=== PATIENT | female | born 1955 | race Caucasian/White ===

== ENCOUNTER 2024-12-03 12:56 | Inpatient (IN) | payer MEDICARE, SELFPAY ==
[2024-12-03] VITALS (7 sets, daily range): BP systolic 128–149; BP diastolic 57–76; PULSE 72–88; RESP 16–18; TEMP 36.7–36.8; O2SAT 87–98; BMI 38.5; BMI 37.3
--- NOTE | 2024-12-03 15:15 | CT_ITS ---
PROCEDURE: BRAIN/HEAD WITHOUT CONTRAST, 12/03/2024 REASON FOR EXAM: INJURY COMPARISON: None TECHNIQUE: CT head was performed without IV contrast. Multiplanar reformats were generated. RADIATION DOSE SUMMARY: CTDlvol: 44.99 mGy DLP: 829.85 mGycm One or more dose reduction techniques were used (e.g., Automated exposure control, adjustment of the mA and/or kV according to patient size, use of iterative reconstruction technique). FINDINGS: Cerebrum: No visible acute hemorrhage, definite acute territorial infarct, or visible mass. Mild cerebral volume loss and supratentorial presumed chronic microvascular ischemic white matter changes. Suspect a remote lacunar infarct versus prominent perivascular space in the posterior limb of the RIGHT internal capsule. Mineralization of the bilateral basal ganglia. Cerebellum/brainstem: Mineralization bilaterally. No visible acute findings. Note slight limitation due to beam hardening artifact. Ventricles/extra-axial spaces: Age-appropriate appearance of the ventricular system. Focal CSF prominence and questioned 2.2 cm arachnoid versus epidermoid cyst or other cystic structure along the high LEFT parietal convexity. Minimal mass effect on the adjacent cerebral parenchyma. Paranasal sinuses/mastoid air cells: Unremarkable. Scalp/calvarium: Unremarkable. Other: Intracranial atherosclerosis. CT/Brain/Head without Contrast IMPRESSION: 1. No visible acute posttraumatic intracranial findings. 2. Question a 2.2 cm arachnoid versus epidermoid cyst or other cystic structure along the high LEFT parietal convexity. Consider outpatient MRI brain with and without contrast for confirmation. Comparison wi th any outside imaging may also be helpful. 3. Additional description as above. Reading Location: [id number]
--- NOTE | 2024-12-03 15:20 | RAD_ITS ---
PROCEDURE: HIP, UNI W/ PELVIS 2-3 VIEWS 12/03/2024 REASON FOR EXAM: INJURY TECHNIQUE: Three-view right hip to include the AP pelvis COMPARISON: None. RAD/HIP, UNI W/ Pelvis 2-3 Views IMPRESSION: Prominent degenerative changes are seen of the visualized lower lumbar spine Minimal sacroiliac joint degenerative changes are noted. The left hip joint demonstrates minimal degenerative changes. A comminuted intertrochanteric FRACTURE of the proximal right femur is seen, wi th varus angulation present. Fracture fragments also involve the lesser and greater trochanters. Reading Location: [place] [id number]
--- NOTE | 2024-12-03 16:20 | EKG12_ITS ---
Test Reason : FALL Blood Pressure : */* mmHG Vent. Rate : 72 BPM Atrial Rate : * BPM P-R Int : * ms QRS Dur : 84 ms QT Int : 400 ms P-R-T Axes : * 11 110 degrees QTcB Int : 438 ms Wandering Atrial Rhythm with PAC's, some blocked PAC's Nonspecific ST and T wave abnormality Abnormal ECG Confirmed by Reinier Brar ([id number]), online editor GABI AHMADI ([id number]) on 12/05/2024 12:46:04 PM Referred By: Confirmed By: Reinier Brar
--- NOTE | 2024-12-03 16:45 | EX.ED.GENINJ ---
HPI History of Present Illness Chief Complaint: Fall Informant: patient and family Narrative Narrative: 69-year-old female presenting to the emergency room with chief complaint of hip pain. Patient states that she was at [employer] when she stepped in a hole and fell down onto her right hip. She was assisted up by bystanders and brought to the hospital by private vehicle. She notes pain in the right hip. She states that she did not hit her head but she did hit her glasses on something. No loss of conscious. She does not take blood thinners but is on Pletal. She has no local orthopedist that she removed from the [place] area to here 1 year ago. Patient had a tramadol this morning for her back pain. She does not wish anything at this time for pain. [facility] Medical History Stomach ulcer Hypertension Irregular heart beat Diabetes Allergy/AdvReac Type Severity Reaction Status Date / Time minocycline (From Minocin) AdvReac Other Verified 12/03/24 13:01 Social History Smoking Status: Never smoker ROS ROS ED Constitutional Constitutional ED: Denies chills or weight loss Eyes Eyes: Denies change in vision or diplopia ENT ENT ED: Denies ear pain, rhinorrhea or sore throat Cardiovascular Cardiovascular: Denies chest pain, orthopnea, palpitations or racing heartbeat Respiratory/Chest Respiratory/Chest: Denies cough, dyspnea or orthopnea Gastrointestinal Gastrointestinal: Denies abdominal pain, diarrhea, nausea or vomiting Genitourinary Genitourinary ED: Denies dysuria, hematuria or urinary frequency Musculoskeletal Musculoskeletal: Reports other Details: See history of present illness ; Denies arthralgias or myalgias Integumentary Denies abscess or rash Neurologic Neurologic: Denies headache(s) or weakness Psychiatric Psychiatric: Denies anxiety, depression, suicidal ideation or suicidal thoughts Endocrine Endocrinology: Denies polydipsia, polyphagia or polyuria Allergic/Immunologic Allergic/Immunologic ED: Denies mouth swelling, tongue swelling or urticaria EXAM Physical Exam Const Vital Signs: 12/03/24 12:57 12/03/24 15:54 12/03/24 16:02 Temperature 98.2 F Temperature Source Oral Pulse Rate 88 75 Respiratory Rate 16 18 Respiratory Effort Normal Non-Labored Respiratory Depth Normal Respiratory Pattern Normal Blood Pressure 134/57 H 138/67 H Blood Pressure Mean 82 90 Pulse Ox 94 95 Oxygen Delivery Method Room Air Room Air Room Air Positive well nourished, well developed and obese General Appearance ED: well developed and NAD Nutritional Appearance: obese HEENT Reports normocephalic, head/scalp atraumatic and moist mucous membranes Eyes PERRL and EOMs intact bilaterally Neck no lymphadenopathy, supple and no JVD Resp normal respiratory effort and clear to auscultation bilaterally Cardio regular rate, regular rhythm and no murmurs GI normal to inspection, nondistended, normoactive bowel sounds and non-tender Palpation: soft Back/Spine no CVA tenderness and normal ROM Extremity Extremity Narrative: Patient with pain in the right hip in the greater trochanteric area. She has pain in this area when I attempt to logroll her. The leg itself does not appear shortened compared to the left. There is no pain over the pubic rami. I do not appreciate any tenderness along the length of the femur or the knee joint. General Extremety ED: Negative for edema General Extremity: Negative for edema Neuro oriented x3 and CN's II-XII intact bilaterally Sensorium / Orientation: alert Motor Exam: strength 5/5 throughout Psych mental status grossly normal Mood & Affect: Negative for depressed or tearful Skin no rashes or lesions noted and no wounds MDM MDM MDM Narrative Medical decision making narrative: Differential diagnosis includes hip fracture skull fracture intracranial hemorrhage pubic rami fracture pelvic fracture contusion traumatic bursitis My depend interpretation of the plain films of the right hip and pelvis is an intertrochanteric hip fracture with lesser marry off. CT the brain shows no acute findings. Basic blood work will be obtained. I spoke with orthopedics Dr. Parrish who is on-call today. He is happy to evaluate the patient. I will speak with the hospitalist regarding admission. Patient and her friend were updated History & Record Review Discussion w/independent historian: Patient and Family Lab Data Attestation: I reviewed the patient's lab results. Radiography Diagnostic Testing: Clinical Impression(s) from Imaging Studies Brain CT 12/03/24 15:15 IMPRESSION: 1. No visible acute posttraumatic intracranial findings. 2. Question a 2.2 cm arachnoid versus epidermoid cyst or other cystic structure along the high LEFT parietal convexity. Consider outpatient MRI brain with and without contrast for confirmation. Comparison with any outside imaging may also be helpful. 3. Additional description as above. Reading Location: [id number] Hip/Pelvis X-Ray 12/03/24 15:20 IMPRESSION: Prominent degenerative changes are seen of the visualized lower lumbar spine Minimal sacroiliac joint degenerative changes are noted. The left hip joint demonstrates minimal degenerative changes. A comminuted intertrochanteric FRACTURE of the proximal right femur is seen, with varus angulation present. Fracture fragments also involve the lesser and greater trochanters. Reading Location: [place] [address] EKG Initial EKG: Attestation: I personally reviewed and interpreted this EKG as follows: Comments: Sinus rhythm ventricular rate of 72 bpm Management Discussion w/another healthcare provider: Hospitalist (Dr Rubi), Sammying Machine Operator (Dr Krueger) and Radiologist Discharge Plan Dx/Rx/DC Orders Clinical Impression: Fracture of right hip, Fall, Diabetes, Hypertension Disposition Disposition: Acute Care Hospital [facility]
[2024-12-03] MEDS: Ondansetron 4 MG/2 ML Vial IV (16:50)
[2024-12-03] MEDS: Morphine 4 MG/ML Syringe IV (16:50)
[2024-12-03 16:59] LABS: Absolute Lymphocyte Count 2.12 X10^3/uL (0.83-4.51); Basophil# 0.03 X10^3/uL; Basophil% 0.3 % (0-1); Eosinophil# 0.13 X10^3/uL; Eosinophils% 1.2 % (0-5); Hematocrit 38.2 % (37-47); Hemoglobin 12.9 g/dL (12.0-15.0); Lymphocyte # 2.12 X10^3/ul (0.83-4.51); Lymphocyte % 19.2 % (19-41); Mean Corp Hgb Conc 33.8 g/dL (32-36); Mean Corpuscular Hgb 37.1 pg (27.0-32.0); Mean Corpuscular Volume 109.8 fL (81-99); Mean Platelet Vol. 10.8 fl (6.2-12.0); Monocyte% 6.3 % (0-10); NRBC Flagged by Analyzer 0 % (0-5); Neutrophil % 72.4 % (47-70); Platelet Count 168 K/mm3 (150-450); RBC Distribution Width CV 13.2 % (11.6-14.6); RBC Distribution Width SD 53.5 fl (35.1-43.9); Red Blood Count 3.48 M/mm3 (4.2-5.4); White Blood Count 11.1 K/mm3 (4.4-11.0)
[2024-12-03 17:36] LABS: Anion Gap 14 (5-15); BUN 17 mg/dL (4-19); BUN/Creat Ratio 29.4 RATIO (10-20); Calcium,Total 10.1 mg/dL (7.6-11.0); Carbon Dioxide 23.4 mmol/L (21.0-32.0); Chloride 105 mmol/L (98-108); Creatinine, Serum 0.58 mg/dL (0.70-1.20); EST Glomerular Filtration Rate 97 (>60); Estimated Creatinine Clearance 72.21 ml/min (50-250); Glucose 177 mg/dL (70-99); Potassium 3.9 mmol/L (3.3-5.1); Sodium Level 142 mmol/L (133-145)
--- NOTE | 2024-12-03 17:44 | PCM.HP.STD ---
HPI - General General Date of Admission: 12/03/24 Date of Service: 12/03/24 Chief Complaint: Fall with R hip pain HPI Narrative YONIS FUENTES, is a 69-year-old female history of diabetes, hypertension, Crohn's disease, hyperlipidemia, chronic diastolic heart failure, GERD, chronic pain who presented [facility] ED 12/03/2024 after stepping in a hole with her right leg in [employer] [place] falling. In the ED patient complained of right hip pain. On arrival to the ED temperature 98.2, pulse rate 88 with blood pressure 134/57, respiratory rate 16 with pulse ox 94% on room air. CT of the brain with no acute process however x-ray of right hip demonstrated Comminuted intertrochanteric fracture proximal right femur with varus angulation and fracture fragments also involving lesser and greater trochanters. Orthopedic surgeon contacted and recommended medical admission with Ortho consultation. Hospitalist contacted for admission. Patient evaluated bedside, reports that she was in her usual health until she stepped into a divot while trying to put on her jacket walking in the [employer] parking lot and fell striking her right hip, is having hip pain at present but is doing better on the morphine. She reports that over the past couple years she does get dizzy when she standing or turning occasionally but has been more noticeable recently though reports this is not why she fell. ROS otherwise negative aside from superficial skin rash on left tian. She does note history of congestive heart failure for which she takes diuretics, does not take them on days that she has things she needs to go out and do due to urinating so much but does not feel like she has been retaining fluid [facility] Medical History (Updated 12/03/24 @ 17:[address] Elizabet Rubi MD) Chronic diastolic heart failure Crohn disease Diabetes GERD (gastroesophageal reflux disease) Hypertension Irregular heart beat Stomach ulcer Home Medications ?Medication ?Instructions ?Recorded ?Last Taken ?Type atorvastatin 80 mg tablet 80 mg PO DAILY 12/03/24 Unknown History benazepril 20 tab PO 12/03/24 Unknown History mg-hydrochlorothiazide 12.5 mg tablet carvedilol 12.5 mg tablet 12.5 mg PO BID 12/03/24 Unknown History cilostazol 100 mg tablet 100 mg PO BID 12/03/24 Unknown History colestipol 1 gram tablet 1 g PO TID 12/03/24 Unknown History empagliflozin 10 mg tablet 10 mg PO DAILY 12/03/24 Unknown History (Jardiance) gabapentin 400 mg capsule 400 mg PO TID 12/03/24 Unknown History insulin glargine 100 unit/mL 70 unit subcut QPM 12/03/24 Unknown History subcutaneous solution (Lantus U-100 Insulin) metformin 1,000 mg tablet 1,000 mg PO 12/03/24 Unknown History pantoprazole 40 mg tablet,delayed 40 mg PO DAILY 12/03/24 Unknown History release tramadol 50 mg tablet 50 mg PO BID severe pain 12/03/24 Unknown History Allergy/AdvReac Type Severity Reaction Status Date / Time minocycline (From Minocin) AdvReac Other Verified 12/03/24 13:01 Social History Smoking Status: Never smoker ROS ROS Narrative General: Denies fever/chills HENT: Denies headache, denies stuffy nose, denies sore throat EYES: Denies changes in vision Resp: Denies cough, denies shortness of breath Cardiac: Denies chest pain GI: Denies abdominal pain, denies changes in bowel, denies nausea/vomiting : Denies changes in urination Extremity: Denies swelling MSK: Denies weakness, right hip pain Neuro: Denies any numbness/tingling Heme: Denies any bleeding or bruising Skin: Rash on left tian for which she has already seen PCP Psychiatric: No complaints voiced Vital Signs Vital Signs Vital Signs: 12/03/24 12:57 12/03/24 15:54 12/03/24 16:02 Temperature 98.2 F Temperature Source Oral Pulse Rate 88 75 Respiratory Rate 16 18 Respiratory Effort Normal Non-Labored Respiratory Depth Normal Respiratory Pattern Normal Blood Pressure 134/57 H 138/67 H Blood Pressure Mean 82 90 Pulse Ox 94 95 Oxygen Delivery Method Room Air Room Air Room Air Weight Weight: 98.7 kg Body Mass Index (BMI) 38.5 Physical Exam Narrative General: Alert, oriented, no apparent distress HEENT: Atraumatic, normocephalic Eyes: Anicteric, normal conjunctiva, extraocular movements grossly intact Neck: Supple Respiratory: Clear to auscultation bilaterally, normal respiratory effort Cardiovascular: Regular rate and rhythm GI: Soft, nontender, nondistended Extremities: No significant pitting edema Musculoskeletal: Playing with right leg still, otherwise moving all extremities Neuro: No overt focal neurological deficits Skin: Some superficial rash on left tian Psych: Cooperative Results Lab / Micro Data 12/03/24 16:45 12/03/24 16:45 Labs: Laboratory Results - last 24 hr 12/03/24 16:45: WBC 11.1 H, RBC 3.48 L, Hgb 12.9, Hct 38.2, MCV 109.8 H, MCH 37.1 H, MCHC 33.8, RDW Std Deviation 53.5 H, RDW Coeff of Tuan 13.2, Plt Count 168, MPV 10.8, Immature Gran % (Auto) 0.600, Neut % (Auto) 72.4 H, Lymph % (Auto) 19.2, Gem % (Auto) 6.3, Eos % (Auto) 1.2, Baso % (Auto) 0.3, Absolute Neuts (auto) 8.0 H, Absolute Lymphs (auto) 2.12, Nucleated RBC % 0, Sodium 142, Potassium 3.9, Chloride 105, Carbon Dioxide 23.4, Anion Gap 14, BUN 17, Creatinine 0.58 L, Estim Creat Clear Calc 72.21, Est GFR (MDRD) Non-Af 97, BUN/Creatinine Ratio 29.4 H, Glucose 177 H, Calcium 10.1 Imaging Radiology Impression Brain CT 12/03/24 15:15 IMPRESSION: 1. No visible acute posttraumatic intracranial findings. 2. Question a 2.2 cm arachnoid versus epidermoid cyst or other cystic structure along the high LEFT parietal convexity. Consider outpatient MRI brain with and without contrast for confirmation. Comparison with any outside imaging may also be helpful. 3. Additional description as above. Reading Location: [facility] Hip/Pelvis X-Ray 12/03/24 15:20 IMPRESSION: Prominent degenerative changes are seen of the visualized lower lumbar spine Minimal sacroiliac joint degenerative changes are noted. The left hip joint demonstrates minimal degenerative changes. A comminuted intertrochanteric FRACTURE of the proximal right femur is seen, with varus angulation present. Fracture fragments also involve the lesser and greater trochanters. Reading Location: [place] [id number] Assessment & Plan Assessment/Plan (1) Fracture of right hip: (2) Hypertension: (3) Diabetes: (4) Fall: (5) Chronic diastolic heart failure: PLAN: Plan # Comminuted intertrochanteric fracture of the proximal right femur with varus angulation and fracture fragments also involving lesser and greater trochanters -Ortho contacted by ED physician, Ortho consult placed -Pain control -N.p.o. midnight in the event patient requires surgical intervention tomorrow -Will hold cilostazol given the above -PT/OT -Case management consult #Type 2 diabetes mellitus -Glucose checks and sliding scale insulin -Continue long-acting but will give half dose in preparation for possible n.p.o. and surgical intervention tomorrow, will likely need to rapidly escalate dose back to home dose as soon as patient is no longer n.p.o. #Hypertension - Blood pressure 138/67 on arrival, will continue patient's Coreg with holding parameters # Crohn's disease -On Humira on an outpatient basis # History of chronic heart failure with preserved ejection fraction -On external history patient carries a history of diastolic dysfunction -Daily weights, I's and O's #GERD -Continue PPI # Focal CSF prominence -CT head demonstrated focal CSF prominence in question 2.2 cm arachnoid versus epidermoid cyst or other cystic structure along high left parietal convexity it was recommended the patient have an outpatient MRI brain with and without contrast considered for comparison with any additional outside imaging if applicable #DVT ppx: SCDs Elizabet Rubi MD Charges/Coding Visit Charges Inpatient E&M: 39290 Init Hosp L2
[2024-12-03 18:04] LABS: Partial Thromboplast Time 26.9 Seconds (24.1-36.2)
[2024-12-03] MEDS: Insulin Lispro 100 UNIT/ML INSULN.PEN SC (20:59)
[2024-12-03] MEDS: Senna/Docusate Sodium 1 Tablet 2 TABLET PO (21:00)
[2024-12-03] MEDS: Acetaminophen 500 MG Tablet 1000 MG PO (21:00)
[2024-12-03] MEDS: Gabapentin 400 MG Capsule PO (21:00)
[2024-12-03] MEDS: oxyCODONE 5 MG Tablet PO (21:00)
[2024-12-03] MEDS: Atorvastatin Calcium 80 MG Tablet PO (21:00)
[2024-12-03] MEDS: Colestipol 1 GM TABLET PO (21:39)
[2024-12-03] MEDS: Insulin Glargine-YFGN 100 UNIT/ML Pen 35 UNIT SC (21:39)
[2024-12-03 21:46] LABS: Bedside Glucose 262 mg/dL (74-106)
[2024-12-04] VITALS (20 sets, daily range): BP systolic 113–166; BP diastolic 50–79; PULSE 64–85; RESP 12–20; TEMP 36.1–37.1; O2SAT 92–100; BMI 37.3
[2024-12-04] MEDS: Gabapentin 400 MG Capsule PO ×2 (05:36→22:09)
[2024-12-04] MEDS: Colestipol 1 GM TABLET PO ×2 (05:36→22:03)
[2024-12-04] MEDS: Acetaminophen 500 MG Tablet 1000 MG PO ×2 (05:36→22:04)
[2024-12-04 05:58] LABS: Absolute Neutrophil Count 4.4 X10^3/uL (2.0-7.7); Basophil# 0.03 X10^3/uL; Basophil% 0.4 % (0-1); Eosinophil# 0.26 X10^3/uL; Eosinophils% 3.1 % (0-5); Hematocrit 32.9 % (37-47); Hemoglobin 11.2 g/dL (12.0-15.0); Lymphocyte % 35.3 % (19-41); Mean Corpuscular Volume 108.6 fL (81-99); Monocyte# 0.77 X10^3/uL; Monocyte% 9.1 % (0-10); NRBC Flagged by Analyzer 0 % (0-5); Neutrophil # 4.41 X10^3/uL (2.7-7.7); Neutrophil % 51.7 % (47-70); Platelet Count 146 K/mm3 (150-450); RBC Distribution Width CV 13.4 % (11.6-14.6); RBC Distribution Width SD 53.7 fl (35.1-43.9); Red Blood Count 3.03 M/mm3 (4.2-5.4); White Blood Count 8.5 K/mm3 (4.4-11.0)
[2024-12-04 05:59] LABS: Anion Gap 8 (5-15); BUN 20 mg/dL (4-19); BUN/Creat Ratio 36.3 RATIO (10-20); Calcium,Total 9.2 mg/dL (7.6-11.0); Carbon Dioxide 26.7 mmol/L (21.0-32.0); Chloride 105 mmol/L (98-108); Creatinine, Serum 0.55 mg/dL (0.70-1.20); EST Glomerular Filtration Rate 98 (>60); Glucose 124 mg/dL (70-99); Potassium 3.3 mmol/L (3.3-5.1); Sodium Level 140 mmol/L (133-145)
[2024-12-04 06:18] LABS: Hemoglobin A1c 6.9 % (<=5.6)
[2024-12-04] MEDS: oxyCODONE 5 MG Tablet PO (06:36)
[2024-12-04 06:58] LABS: Bedside Glucose 133 mg/dL (74-106)
--- NOTE | 2024-12-04 07:19 | PN.HOSP_ITS ---
Reason for Visit Reason for Visit: Diagnoses Type 2 diabetes mellitus without complications (12/03/24) Essential (primary) hypertension (12/03/24) Chronic diastolic (congestive) heart failure (12/03/24) Fracture of unspecified part of neck of right femur, initial encounter for closed fracture (12/03/24) Unspecified fall, initial encounter (12/03/24) Subjective Subjective Pain in right leg. Objective Data Objective Data Vital Signs: Vital Signs Temp Pulse Resp BP Pulse Ox O2 Del Method O2 Flow Rate 36.6 C 76 16 113/62 98 CPAP 2 12/04/24 03:59 12/04/24 03:59 12/04/24 03:59 12/04/24 03:59 12/04/24 03:59 12/04/24 03:59 12/03/24 20:45 FiO2 30 12/04/24 02:40 Oxygen Flow Rate (L/min) 2 Oxygen Delivery Method CPAP Weight: 95.481 kg Body Mass Index (BMI) 37.3 Intake & Output: Intake and Output for Last 24 Hours 12/02/24 12/03/24 12/04/24 23:59 23:59 23:59 Intake Total 200 / 200 Balance 200 / 200 Lab / Micro Data 12/04/24 05:22 12/04/24 05:22 Labs: Laboratory Results - last 24 hr 12/03/24 16:45: WBC 11.1 H, RBC 3.48 L, Hgb 12.9, Hct 38.2, MCV 109.8 H, MCH 37.1 H, MCHC 33.8, RDW Std Deviation 53.5 H, RDW Coeff of Tuan 13.2, Plt Count 168, MPV 10.8, Immature Gran % (Auto) 0.600, Neut % (Auto) 72.4 H, Lymph % (Auto) 19.2, [place] % (Auto) 6.3, Eos % (Auto) 1.2, Baso % (Auto) 0.3, Absolute Neuts (auto) 8.0 H, Absolute Lymphs (auto) 2.12, Nucleated RBC % 0, PT 13.0, INR 1.0, APTT 26.9, Sodium 142, Potassium 3.9, Chloride 105, Carbon Dioxide 23.4, Anion Gap 14, BUN 17, Creatinine 0.58 L, Estim Creat Clear Calc 72.21, Est GFR (MDRD) Non-Af 97, BUN/Creatinine Ratio 29.4 H, Glucose 177 H, Calcium 10.1, Blood Type A POSITIVE, Antibody Screen NEGATIVE 12/03/24 20:52: POC Glucose 262 H 12/04/24 05:22: WBC 8.5, RBC 3.03 L, Hgb 11.2 L, Hct 32.9 L, MCV 108.6 H, MCH 37.0 H, MCHC 34.0, RDW Std Deviation 53.7 H, RDW Coeff of Tuan 13.4, Plt Count 146 L, MPV 11.0, Immature Gran % (Auto) 0.400, Neut % (Auto) 51.7, Lymph % (Auto) 35.3, [place] % (Auto) 9.1, Eos % (Auto) 3.1, Baso % (Auto) 0.4, Absolute Neuts (auto) 4.4, Absolute Lymphs (auto) 3.00, Nucleated RBC % 0, Sodium 140, Potassium 3.3, Chloride 105, Carbon Dioxide 26.7, Anion Gap 8, BUN 20 H, C reatinine 0.55 L, Estim Creat Clear Calc 70.90, Est GFR (MDRD) Non-Af 98, B UN/Creatinine Ratio 36.3 H, Glucose 124 H, Hemoglobin A1c 6.9 H, Calcium 9.2 12/04/24 06:24: POC Glucose 133 H Radiography Diagnostic Testing: Radiology Impression Brain CT 12/03/24 15:15 IMPRESSION: 1. No visible acute posttraumatic intracranial findings. 2. Question a 2.2 cm arachnoid versus epidermoid cyst or other cystic structure along the high LEFT parietal convexity. Consider outpatient MRI brain with and without contrast for confirmation. Comparison with any outside imaging may also be helpful. 3. Additional description as above. Reading Location: [id number] Hip/Pelvis X-Ray 12/03/24 15:20 IMPRESSION: Prominent degenerative changes are seen of the visualized lower lumbar spine Minimal sacroiliac joint degenerative changes are noted. The left hip joint demonstrates minimal degenerative changes. A comminuted intertrochanteric FRACTURE of the proximal right femur is seen, with varus angulation present. Fracture fragments also involve the lesser and greater trochanters. Reading Location: [place] [address] Physical Exam Const alert and no apparent distress Resp normal respiratory effort, no retractions, no use of accessory muscles and clear to auscultation bilaterally Cardio regular rate, regular rhythm, S1 normal heart sound and S2 normal heart sound GI normal to inspection, nondistended, normoactive bowel sounds, soft to palpation, non-tender and non-distended Extremity normal to inspection Neuro Sensorium / Orientation: awake and alert Assessment & Plan Assessment/Plan (1) Fracture of right hip: PLAN: s/p mechanical fall. 25-OH d level 42.6. Start ergocalciferol Ortho consult. PLAN: Plan Chronic conditions: * DM2: SSI. * HTN: stable. carvedilol * Crohn's dz: continue adalimumab as outpt * GERD: PPI. VTE prophylaxis: SCDs for now. Charges/Coding Visit Charges Inpatient E&M: 24474 Subs Hosp L2
[2024-12-04 08:24] LABS: Vitamin D,25 Hydroxy 42.6 ng/mL (30-100)
[2024-12-04] MEDS: Carvedilol 12.5 MG Tablet PO ×2 (09:51→18:05)
--- NOTE | 2024-12-04 11:58 | CASEMGMT ---
Discharge Planning A list of SNF providers including quality and resource use data and consistent with the patient's preferred geographic region, medical needs, and insurance network was created in [facility] Guide.? This list was provided to the SW. Marychuy Bravo Discharge Planning Asst.
--- NOTE | 2024-12-04 12:25 | CASEMGMT ---
SAUD KENNEY Assessment: Face to Face with pt for initial transition planning/care coordination assessment. RN ANNE MARIE introduced self and role at [facility], pt voices understanding and consents to assessment. Pt is A&O x4 and answers all questions appropriately at this time. Pt lying in bed in no distress, aunt and uncle in the room. Pt agreeable to discussing DC plan with family in the room. Care providers, pharmacy, and demographics verified/updated. Strata: 2 Admitting Dx: R Proximal Femur Fracture PCP: Esperanza Cary Specialists: Julita Aquacultural Worker Supervisor; Eliezer, Cardiology Preferred Pharmacy: [facility] Insurance: [employer] Prescription Benefit: yes LNOK: AuntNikolas Living Arrangements: Pt lives alone in an appt with no steps to enter. ADLs: Pt reports I at baseline. Transportation: Pt family provides transportation. DME: CPAP, Shower Seat, Walker. Pt states she has O2 at home but hasn't been using it, pt is unsure of provider, aunt states she will look at name on concentrator and let RN ANNE MARIE know the agency. HHC/SNF: Denies Hx of. Pt states she would like to go to [facility] at time of dc. RN CM notified SW and RN CM on floor. SW/CM to follow. Advised pt to ask CM if any further question/concerns/needs arise, voices understanding. Pt Goal: [facility] Plan: Will follow plan of care and therapy for recommendations. Plan for safe DC. Pam VILLAVICENCIO CM
[2024-12-04 12:45] LABS: Bedside Glucose 120 mg/dL (74-106)
--- NOTE | 2024-12-04 12:55 | CASEMGMT ---
Social Work SW met with pt and two family members. Family inquiring about discharge process. SW explained that after surgery and therapy SW/CM would meet with pt to discuss discharge needs. Pt stating she will need to go to SNF at time of DC for short term rehab. Pt states she would likely want to go to [facility], but would like to review a list. A list of SNF providers including quality and resource use data and consistent with the patient?s preferred geographic region, medical needs, and insurance network were provided from the [facility]. SW will follow up after pt has surgery and therapy evals for dc planning. JERONIMO Carreno
--- NOTE | 2024-12-04 13:00 | RAD_ITS ---
PROCEDURE: INTRAOPERATIVE RIGHT HIP WITH MOBILE C-ARM 12/04/2024 REASON FOR EXAM: ORIF RT HIP GAMMA NAIL TECHNIQUE: 20 IMAGES OF THE RIGHT HIP DURING INTERNAL FRACTURE FIXATION. COMPARISON: RIGHT HIP PLAIN FILMS DATED 12/03/2024. FINDINGS: Bones: A comminuted intertrochanteric fracture of the right hip is redemonstrated. Joints: Hip joint is maintained. Soft tissues: Unremarkable. Other: Images show eventual placement of orthopedic screw and compression plate device fixing the intertrochanteric fragments. RAD/Hip Min 2 Views (Portable) IMPRESSION: Successful intraoperative fixation of comminuted fracture of the right hip. Fo r further detail of the procedure please see operative report. Reading Location: [facility]
--- NOTE | 2024-12-04 13:23 | PCM.PRE.AN2 ---
ASA Classification* ASA Classification ASA Classification: 3 Assessment & Plan Anesthesia* Anesthesia Assessment Anesthesia Assessment: Discussed sedation and/or anesthesia options, risks, benefits, and alternatives with patient/parents/legal guardian/POA. Questions invited. The patient/parents/legal guardian/POA seems to understand and agrees to proceed with anesthesia plan. Reviewed the physical assessment, medical history, allergy history and patient home medications list prior to surgery/procedure/anesthetic and documented any changes. Performed airway and anesthesia risk assessments. Anesthesia Type Anesthesia Type: General History Source History Obtained from:: Patient and Chart Anesthesia Focused Assessment* Temperature: 98.5 F Pulse Rate: 73 Blood Pressure: 127/67 Respiratory Rate: 16 Pulse Ox: 94 Oxygen Delivery Method: Room Air Oxygen Flow Rate (L/min): 2 Fraction of Inspired Oxygen (FIO2): 30 Airway Assessment Mouth opens: >3 cm Mallampati Score: IV Teeth Condition: Caps/Crowns (Patient has a couple of crowns left lower molars. They are tight.) Neck Range of motion (ROM): Full ROM Focused Labs Anesthesia Preop lab: CBC WBC 8.5 K/mm3 (4.4-11.0) 12/04/24 05:12/04/24 RBC 3.03 M/mm3 (4.2-5.4) L 12/04/24 05:12/04/24 Hgb 11.2 g/dL (12.0-15.0) L 12/04/24 05:12/04/24 Hct 32.9 % (37-47) L 12/04/24 05:12/04/24 Plt Count 146 K/mm3 (150-450) L 12/04/24 05:22 12/04/24 CHEMISTRY Potassium 3.3 mmol/L (3.3-5.1) 12/04/24 05:12/04/24 Sodium 140 mmol/L (133-145) 12/04/24 05:12/04/24 BUN 20 mg/dL (4-19) H 12/04/24 05:22 12/04/24 Creatinine 0.55 mg/dL (0.70-1.20) L 12/04/24 05:22 12/04/24 Glucose 124 mg/dL (70-99) H 12/04/24 05:22 12/04/24 POC Glucose 120 mg/dL (74-106) H 12/04/24 12:21 12/04/24 COAG PT 13.0 SECONDS (11.7-14.9) 12/03/24 16:45 12/03/24 Pre-Assessment Diagnosis/Proposed Procedure Planned Operative Procedure(s): Open reduction internal fixation, gamma nail, right hip. 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 When Was Last Pacemaker Check QUESTION #4 FULL TEXT: You/Your Family Experience fever (hyperthermia) with Anesthesia Last Oral Intake Last Oral intake: Last Oral Intake NPO since 00:00 12/04/24 12:12 Meds taken in AM with sips of Yes 12/04/24 12:12 water? 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 Has anyone observed you stop breathing during sleep? STOP Results Positive 12/03/24 18:22 QUESTION #5 FULL TEXT : Do you snore loudly (louder than talking or can be heard through closed doors)? 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 Specify any problems Hx of Preganancy in last 3 No 12/03/24 18:22 Months Nurse Filling Out Transfusion [id number] 12/03/24 18:22 & Questions: Date: 12/03/24 12/03/24 18:22 Time: 18:36 12/03/24 18:22 Patient unable to answer at this time (ie. 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 INHALATION Q2H PRN PRN SOB &/OR WHEEZING Atorvastatin Calcium 80 mg 12/03/24 22:00 12/03/24 21:00 Atorvastatin Calcium 80 Mg Tablet PO 80 mg QHS CHRIS Administration Carvedilol 12.5 mg 12/04/24 08:00 12/04/24 09:51 Carvedilol 12.5 Mg Tablet PO 12.5 mg BIDCM CHRIS Administration Protocol Colestipol HCl 1 gm 12/03/24 22:00 12/04/24 05:36 Colestipol 1 Gm Tablet PO 1 gm TID CHRIS Administration Gabapentin 400 mg 12/03/24 22:00 12/04/24 05:36 Gabapentin 400 Mg Capsule PO 400 mg TID CHRIS Administration Glucagon 1 mg 12/03/24 18:22 Glucagon 1 Mg/Ml Syringe IM X1 PRN HYPOGLYCEMIA Protocol Dextrose 250 mls @ 0 mls/hr 12/03/24 18:22 Dextrose 10%-Water IV .Q0M PRN HYPOGLYCEMIA Protocol As Directed Sodium Chloride 250 mls @ 15 mls/hr 12/03/24 18:39 IV .[id number] PRN Saline Flush Sodium Chloride 250 mls @ 15 mls/hr 12/03/24 18:39 IV .[id number] PRN Additional IVPB Infusion Insulin Glargine 35 unit 12/03/24 21:00 12/03/24 21:39 Insulin Glargine-Yfgn 100 Unit/Ml Pen SC 35 unit QPM CHRIS Administration Insulin Human Lispro 0 unit 12/03/24 22:00 12/04/24 06:37 Insulin Lispro 100 Unit/Ml Insuln.Pen SC Not Given ACHS [facility] Protocol Melatonin 10 mg 12/03/24 18:22 Melatonin 10 Mg Tablet PO QHS PRN PRN INSOMNIA Morphine Sulfate 2 - 4 mg 12/03/24 18:55 Morphine 2 Mg/Ml Syringe IV Q3H PRN PRN Pain Score 6-10 Ondansetron HCl 4 mg 12/03/24 18:22 Ondansetron 4 Mg/2 Ml Vial IV Q8H PRN PRN NAUSEA/VOMITING Oxycodone HCl 5 mg 12/03/24 18:55 12/04/24 06:36 Oxycodone 5 Mg Tablet PO 5 mg Q4H PRN PRN Administration Pain Score 4-10 Pantoprazole Sodium 40 mg 12/04/24 10:00 Pantoprazole Sodium 40 Mg Tablet PO DAILY [facility] Senna/Docusate Sodium 2 tablet 12/03/24 22:00 12/03/24 21:00 Senna/Docusate Sodium 1 Tablet PO 2 tablet BID CHRIS Administration Sodium Chloride 10 - 40 ml 12/03/24 18:39 0.9% Saline Lock 10 Ml Syringe IV UD PRN SALINE FLUSH PFSH Medical History Chronic diastolic heart failure GERD (gastroesophageal reflux disease) Crohn disease Stomach ulcer Hypertension Irregular heart beat Diabetes Home Medications ?Medication ?Instructions ?Recorded ?Last Taken ?Type atorvastatin 80 mg tablet 80 mg PO DAILY 12/03/24 Unknown History benazepril 20 2 tab PO DAILY htn 12/03/24 Unknown History mg-hydrochlorothiazide 12.5 mg tablet carvedilol 12.5 mg tablet 12.5 mg PO BID Hypertension 12/03/24 12/04/24 History cilostazol 100 mg tablet 100 mg PO BID 12/03/24 Unknown History colestipol 1 gram tablet 1 g PO TID 12/03/24 Unknown History empagliflozin 10 mg tablet 10 mg PO DAILY 12/03/24 Unknown History (Jardiance) gabapentin 400 mg capsule 400 mg PO TID 12/03/24 Unknown History insulin glargine 100 unit/mL 70 unit subcut QPM 12/03/24 Unknown History subcutaneous solution (Lantus U-100 Insulin) metformin 1,000 mg tablet 1,000 mg PO BID dm 12/03/24 Unknown History pantoprazole 40 mg tablet,delayed 40 mg PO DAILY 12/03/24 Unknown History release tramadol 50 mg tablet 50 mg PO BID severe pain 12/03/24 Unknown History Allergy/AdvReac Type Severity Reaction Status Date / Time minocycline (From Minocin) AdvReac Other Verified 12/04/24 13:12 Surgical History (Updated 12/04/24 @ 13:[address] Jamie Nascimento MD) S/P cholecystectomy Social History Smoking Status: Never smoker Review of Systems (Anesthesia) ROS Narrative System reviewed and no additional complaints, except as documented.
--- NOTE | 2024-12-04 13:55 | CONS.ORTHO ---
HPI Consult Data Date of Consult: 12/04/24 HPI Narrative HPI Narrative: YONIS FUENTES, is a 69-year-old female history of diabetes, hypertension, Crohn's disease, hyperlipidemia, chronic diastolic heart failure, GERD, chronic pain who presented [facility] ED 12/03/2024 after stepping in a hole with her right leg in [facility] parking lot falling. Patient was found to have right hip intertrochanteric femur fracture. Was consulted by the ER. I saw the patient today. She explains that she had been using 2 wheeled walker for the last 3 to 4 years because of back pain prior to the injury yesterday. She reports that her right hip hurts but denies any other areas of pain. She denies any other injuries. She denies any head injury. She is able to move her toes. She is a known diabetic and also sees cardiology. She has been cleared for surgery. [facility] Medical History (Updated 12/04/24 @ 13:[address] Isaac Krueger MD) Chronic diastolic heart failure GERD (gastroesophageal reflux disease) Crohn disease Stomach ulcer Hypertension Irregular heart beat Diabetes Home Medications ?Medication ?Instructions ?Recorded ?Last Taken ?Type atorvastatin 80 mg tablet 80 mg PO DAILY 12/03/24 Unknown History benazepril 20 2 tab PO DAILY htn 12/03/24 Unknown History mg-hydrochlorothiazide 12.5 mg tablet carvedilol 12.5 mg tablet 12.5 mg PO BID Hypertension 12/03/24 12/04/24 History cilostazol 100 mg tablet 100 mg PO BID 12/03/24 Unknown History colestipol 1 gram tablet 1 g PO TID 12/03/24 Unknown History empagliflozin 10 mg tablet 10 mg PO DAILY 12/03/24 Unknown History (Jardiance) gabapentin 400 mg capsule 400 mg PO TID 12/03/24 Unknown History insulin glargine 100 unit/mL 70 unit subcut QPM 12/03/24 Unknown History subcutaneous solution (Lantus U-100 Insulin) metformin 1,000 mg tablet 1,000 mg PO BID dm 12/03/24 Unknown History pantoprazole 40 mg tablet,delayed 40 mg PO DAILY 12/03/24 Unknown History release tramadol 50 mg tablet 50 mg PO BID severe pain 12/03/24 Unknown History Allergy/AdvReac Type Severity Reaction Status Date / Time minocycline (From Minocin) AdvReac Other Verified 12/04/24 13:12 Surgical History (Updated 12/04/24 @ 13:[address] Jamie Nascimento MD) S/P cholecystectomy Social History Smoking Status: Never smoker Vital Signs Vital Signs Vital Signs: 12/03/24 15:54 12/03/24 16:02 12/03/24 18:17 Temperature 98.0 F Temperature Source Pulse Rate 75 72 Pulse Strength Respiratory Rate 18 18 Respiratory Effort Normal Non-Labored Respiratory Depth Normal Respiratory Pattern Normal Blood Pressure 138/67 H 138/76 H Blood Pressure Mean 90 96 Blood Pressure Source Blood Pressure Position Blood Pressure Location Pulse Ox 95 97 Oxygen Delivery Method Room Air Room Air Oxygen Flow Rate (L/min) Fraction of Inspired Oxygen (FIO2) 12/03/24 18:22 12/03/24 18:40 12/03/24 20:38 Temperature 98.1 F Temperature Source Oral Pulse Rate 75 Pulse Strength Respiratory Rate 18 Respiratory Effort Normal Non-Labored Respiratory Depth Normal Respiratory Pattern Normal Blood Pressure 149/67 H Blood Pressure Mean 94 Blood Pressure Source Monitor Blood Pressure Position Supine Blood Pressure Location Right Arm Pulse Ox 92 87 Oxygen Delivery Method Room Air Room Air Room Air Oxygen Flow Rate (L/min) Fraction of Inspired Oxygen (FIO2) 12/03/24 20:40 12/03/24 20:45 12/03/24 22:00 Temperature 98.3 F Temperature Source Oral Pulse Rate 81 Pulse Strength Normal (2+) Respiratory Rate 16 Respiratory Effort Normal Non-Labored Respiratory Depth Normal Respiratory Pattern Normal Blood Pressure 128/57 H Blood Pressure Mean 80 Blood Pressure Source Monitor Blood Pressure Position Semi-Fowlers Blood Pressure Location Right Arm Pulse Ox 92 98 Oxygen Delivery Method Nasal Cannula Nasal Cannula Oxygen Flow Rate (L/min) 2 2 Fraction of Inspired Oxygen (FIO2) 12/04/24 00:00 12/04/24 02:40 12/04/24 03:59 Temperature 98 F Temperature Source Axillary Pulse Rate 76 76 76 Pulse Strength Respiratory Rate 16 12 16 Respiratory Effort Respiratory Depth Respiratory Pattern Normal Blood Pressure 113/62 Blood Pressure Mean 79 Blood Pressure Source Monitor Blood Pressure Position Semi-Fowlers Blood Pressure Location Right Arm Pulse Ox 98 97 98 Oxygen Delivery Method CPAP Oxygen Flow Rate (L/min) Fraction of Inspired Oxygen (FIO2) 30 30 12/04/24 06:55 12/04/24 11:58 12/04/24 12:12 Temperature 98.5 F 98.5 F Temperature Source Oral Oral Pulse Rate 73 73 Pulse Strength Respiratory Rate 16 16 Respiratory Effort Respiratory Depth Respiratory Pattern Blood Pressure 127/67 H 127/67 H Blood Pressure Mean 87 87 Blood Pressure Source Monitor Monitor Blood Pressure Position Semi-Fowlers Semi-Fowlers Blood Pressure Location Left Arm Right Arm Pulse Ox 97 94 Oxygen Delivery Method Room Air Nasal Cannula Room Air Oxygen Flow Rate (L/min) 2 Fraction of Inspired Oxygen (FIO2) 12/04/24 13:38 Temperature 98.5 F Temperature Source Pulse Rate 73 Pulse Strength Respiratory Rate 16 Respiratory Effort Respiratory Depth Respiratory Pattern Blood Pressure 127/67 H Blood Pressure Mean Blood Pressure Source Blood Pressure Position Blood Pressure Location Pulse Ox 94 Oxygen Delivery Method Room Air Oxygen Flow Rate (L/min) 2 Fraction of Inspired Oxygen (FIO2) 30 Weight Weight: 210 lb 7.958 oz Body Mass Index (BMI) 37.3 Physical Exam Narrative Exam to the right hip shows tenderness into the groin and lateral hip region. Distal neurovascular exam is intact. Examination of the distal femur, knee and rest of the right lower extremity do not show any obvious bony tenderness. Patient is able to move all joints in bilateral upper and left lower extremities. Lab / Micro Data 12/04/24 05:22 12/04/24 05:22 Labs: Laboratory Results - last 24 hr 12/03/24 16:45: WBC 11.1 H, RBC 3.48 L, Hgb 12.9, Hct 38.2, MCV 109.8 H, MCH 37.1 H, MCHC 33.8, RDW Std Deviation 53.5 H, RDW Coeff of Tuan 13.2, Plt Count 168, MPV 10.8, Immature Gran % (Auto) 0.600, Neut % (Auto) 72.4 H, Lymph % (Auto) 19.2, [place] % (Auto) 6.3, Eos % (Auto) 1.2, Baso % (Auto) 0.3, Absolute Neuts (auto) 8.0 H, Absolute Lymphs (auto) 2.12, Nucleated RBC % 0, PT 13.0, INR 1.0, APTT 26.9, Sodium 142, Potassium 3.9, Chloride 105, Carbon Dioxide 23.4, Anion Gap 14, BUN 17, Creatinine 0.58 L, Estim Creat Clear Calc 72.21, Est GFR (MDRD) Non-Af 97, BUN/Creatinine Ratio 29.4 H, Glucose 177 H, Calcium 10.1, Blood Type A POSITIVE, Antibody Screen NEGATIVE 12/03/24 20:52: POC Glucose 262 H 12/04/24 05:22: WBC 8.5, RBC 3.03 L, Hgb 11.2 L, Hct 32.9 L, MCV 108.6 H, MCH 37.0 H, MCHC 34.0, RDW Std Deviation 53.7 H, RDW Coeff of Tuan 13.4, Plt Count 146 L, MPV 11.0, Immature Gran % (Auto) 0.400, Neut % (Auto) 51.7, Lymph % (Auto) 35.3, [place] % (Auto) 9.1, Eos % (Auto) 3.1, Baso % (Auto) 0.4, Absolute Neuts (auto) 4.4, Absolute Lymphs (auto) 3.00, Nucleated RBC % 0, Sodium 140, Potassium 3.3, Chloride 105, Carbon Dioxide 26.7, Anion Gap 8, BUN 20 H, Creatinine 0.55 L, Estim Creat Clear Calc 70.90, Est GFR (MDRD) Non-Af 98, BUN/Creatinine Ratio 36.3 H, Glucose 124 H, Hemoglobin A1c 6.9 H, Calcium 9.2, Vitamin D 25-Hydroxy 42.6 12/04/24 06:24: POC Glucose 133 H 12/04/24 12:21: POC Glucose 120 H Imaging Radiology Impression Brain CT 12/03/24 15:15 IMPRESSION: 1. No visible acute posttraumatic intracranial findings. 2. Question a 2.2 cm arachnoid versus epidermoid cyst or other cystic structure along the high LEFT parietal convexity. Consider outpatient MRI brain with and without contrast for confirmation. Comparison with any outside imaging may also be helpful. 3. Additional description as above. Reading Location: [facility] Hip/Pelvis X-Ray 12/03/24 15:20 IMPRESSION: Prominent degenerative changes are seen of the visualized lower lumbar spine Minimal sacroiliac joint degenerative changes are noted. The left hip joint demonstrates minimal degenerative changes. A comminuted intertrochanteric FRACTURE of the proximal right femur is seen, with varus angulation present. Fracture fragments also involve the lesser and greater trochanters. Reading Location: [place] [id number] Assessment & Plan Assessment/Plan (1) Fracture, intertrochanteric, right femur: QUALIFIERS: Encounter type: initial encounter Fracture type: closed Fracture alignment: displaced Qualified Code(s): S72.141A - Displaced intertrochanteric fracture of right femur, initial encounter for closed fracture PLAN: Plan I reviewed the x-rays done in the ER last night. These show a right hip displaced intertrochanteric femoral fracture. Discussed imaging findings in detail. Explained to her that this is surgical injury and surgical treatment is recommended to allow early mobility and to reduce recumbency complications. Surgical options were discussed. I recommend right femur cephalomedullary nailing for fracture fixation. Discussed all risk benefits and alternatives. The risks include but are not limited to infection, bleeding, hematoma formation, need for further surgery, hardware failure, nonunion, malunion, limb length discrepancy, DVT, pulm embolism, pneumonia, atelectasis, cardiopulmonary event, persistent pain, hip arthritis, need for hip replacement, sophie-implant fracture. Patient understands and agrees to proceed with surgery. Consent was signed. All questions were answered. Charges/Coding Visit Charges Inpatient E&M: 07970 Init Hosp L3
--- NOTE | 2024-12-04 15:46 | PCM.OPRPT ---
Procedures Musculoskeletal [id number]: Other Procedure See Report Operative Report (Standard) Operative Information Date of Procedure: 12/04/24 Pre-Operative Diagnosis: Right intertrochanteric femur fracture displaced Post-Operative Diagnosis: Same Surgery/Procedure Performed: Right femur cephalomedullary nailing?Short gamma nail sap technical developer: Yes Production Statistical Clerk: Sol Nelson Tasks completed by administration assistant: Closing, Hemostasis: Electrocautery and Retracting Type of Anesthesia: General RN Documented Start/Stop Times: Operation Date: 12/04/24 14:00 Case Time Into Pre-Op 12/04/24 13:04 Anesthesia Start 12/04/24 14:07 Into Room 12/04/24 14:07 Procedure Start 12/04/24 14:43 Procedure Start Time: 14:43 Procedure Stop Time: 15:55 Select all DRAINS/GRAFTS/IMPLANTS that apply: Implanted device Implanted device details: [place] gamma 4 short nail Estimated Blood Loss: 50 cc Specimen collected: No Description of surgery: Operative Report Pre-operative Diagnosis: Right intertrochanteric Femur Fracture, displaced Post-operative Diagnosis: Same Procedure(s) Performed: Right femur Cephalmedullary Nailing CPT 60719 Surgeon: Dr. Isaac Krueger MD Supervisor Sample: None Estimated Blood Loss: 50 ml Anesthesia: General Drains: None Specimens: None Implants: [place] Gamma4 Trochanteric Nail 170 x 11 mm, 125 degree short gamma nail Complications: None Condition: stable Indications: 69-year-old lady who had a ground-level fall and sustained a right intertrochanteric femur Fracture. We discussed the benefits and risks of the procedure including but not limited toinfection, bleeding, injury to nerves and vessels, limb length discrepancy, nonunion, malunion, hardware failure, sophie-implant fracture, hip and knee stiffness, persistent pain, difficulty to ambulate, DVT, pulmonary embolism, cardiopulmonary event, need for further surgeries. The patient concurred with the proposed plan, giving informed consent. Procedure Details: The patient was seen in the pre-operative preparation area. The site of surgery was verbally confirmed and marked by the surgical team. The patient was properly identified by the unique identifiers and was then at that time transported to the operative theater by [facility]. A Time Out was held and the above information confirmed. Both lower extremities were placed on the fracture table with the contralateral extremity extended down to allow C-arm to come in. Close reduction maneuver was applied and AP and lateral x-rays were taken. Reduction was acceptable. Operative area was prepped and draped in a sterile fashion. Final timeout was performed. With the help of C-arm incision was marked. A 4 cm Incision was made proximal to the greater trochanter. An appropriate greater trochanter starting point was found using the starting wire under fluoroscopy. The wire was then drilled to the metadiaphyseal region of the femur. The opening reamer was then drilled into the metadiaphysis under fluoro. 170 x 11 mm short Gamma Nail with 125 degree angle was then placed into the intramedullary canal of the femur and placement was verified with fluoroscopy and advanced to an appropriate level to allow placement of the lag screw. We then drilled the wire for the lag screw up the neck of the femur under fluoroscopic guidance. AP and lateral x-rays showed good positioning of the wire through the neck into the head with good tip apex distance. The wire was then measured. Cannulated drill was used to drill a channel for the lag screw and a 105 mm lag screw was placed up the neck of the femur. A distal static interlocking screw 32.5 mm was placed with the help of the jig. This was placed in the proximal end of the oblong hole. Final fluorscopic images were then taken and the placement of the intramedullary device and fracture was deemed appropriate. The wounds were irrigated copiously with sterile solution. Irrisept was also kept in the wound for 1 minute. This was rinsed off. Deep bleeder was noticed likely venous. This was controlled with electrocautery. The deep fascia was closed with 0 vicryl suture. The deep dermal layer was closed with 2-0 vicryl suture. [place] were used to close the skin. Aquacel dressing was used, the incisions. The patient was then awaken, extubated and taken to the PACU. I was present and scrubbed for the entire procedure. Postoperative plan: Patient will be WBAT. Recommend PT/OT evaluation Pain Control F/u Outpatient in 2 weeks Surgical Findings: See operative note Complications Complications: No
[2024-12-04] MEDS: TXA 1000mg in NS100 100ml (IVPB at Incision) 660 MG IV (16:07)
--- NOTE | 2024-12-04 16:23 | PCM.POST.ANE ---
Anesthesia: Postop Eval I Current Vital Signs Temperature: 97 F Pulse Rate: 72 Blood Pressure: 140/73 Respiratory Rate: 14 Pulse Ox: 98 Oxygen Delivery Method: Simple Mask Assessment Airway patent: Yes Spontaneous unlabored respirations: Yes Mental status: Calm nausea: No Vomiting: No Anesthesia Complication: No Fluid Hydration Crystalloid volume administer (ml): 800 Total IV fluid infused: 800 Progress Note Anesthesia document: Postop Eval 1 completed: Yes
[2024-12-04] MEDS: Calcium Carbonate 500 MG Tablet PO (18:05)
[2024-12-04] MEDS: Pantoprazole Sodium 40 MG Tablet PO (18:05)
--- NOTE | 2024-12-04 18:33 | POSTOPAN2_ITS ---
Anesthesia Postop Eval I Sum Postop Eval Completion status Anesthesia document: Postop Eval 1 completed: Yes Anesthesia Postop Eval I Summary Anesthesia Postop Eval I Summary: Anesthesia Postop Eval I: Assessment Summary Airway patent Yes 12/04/24 16:23 [email or web address] Spontaneous unlabored Yes 12/04/24 16:23 [email or web address] respirations Mental status Calm 12/04/24 16:23 [email or web address] nausea No 12/04/24 16:23 [email or web address] Vomiting No 12/04/24 16:23 [email or web address] Anesthesia Postop Eval I: Fluid Summary Crystalloid volume administer 800 12/04/24 16:23 [email or web address] (ml) Colloids volume administered ( ml) Blood Product volume administered (ml) Total IV fluid infused 800 12/04/24 16:23 [email or web address] Anesthesia Postop Eval I: Summary Notes Anesthesia Complication No 12/04/24 16:23 [email or web address] Anesthesia Complication Comment: Post-operative progress note Anesthesia: Postop Eval II Evaluation Mental status: Awake and Calm Pain Level: 2 nausea: No Vomiting: No Complications Anesthesia Complication: No
--- NOTE | 2024-12-04 18:33 | PCM.POSTANE2 ---
Anesthesia Postop Eval I Sum Postop Eval Completion status Anesthesia document: Postop Eval 1 completed: Yes Anesthesia Postop Eval I Summary Anesthesia Postop Eval I Summary: Anesthesia Postop Eval I: Assessment Summary Airway patent Yes 12/04/24 16:23 [email or web address] Spontaneous unlabored Yes 12/04/24 16:23 [email or web address] respirations Mental status Calm 12/04/24 16:23 [email or web address] nausea No 12/04/24 16:23 [email or web address] Vomiting No 12/04/24 16:23 [email or web address] Anesthesia Postop Eval I: Fluid Summary Crystalloid volume administer 800 12/04/24 16:23 [email or web address] (ml) Colloids volume administered ( ml) Blood Product volume administered (ml) Total IV fluid infused 800 12/04/24 16:23 [email or web address] Anesthesia Postop Eval I: Summary Notes Anesthesia Complication No 12/04/24 16:23 [email or web address] Anesthesia Complication Comment: Post-operative progress note Anesthesia: Postop Eval II Evaluation Mental status: Awake and Calm Pain Level: 2 nausea: No Vomiting: No Complications Anesthesia Complication: No
[2024-12-04] MEDS: APIXABAN 2.5 MG TABLET (WCH) PO (22:03)
[2024-12-04] MEDS: Senna/Docusate Sodium 1 Tablet 2 TABLET PO (22:04)
[2024-12-04] MEDS: Atorvastatin Calcium 80 MG Tablet PO (22:04)
[2024-12-04] MEDS: Insulin Glargine-YFGN 100 UNIT/ML Pen 35 UNIT SC (22:04)
[2024-12-04] MEDS: Insulin Lispro 100 UNIT/ML INSULN.PEN SC (22:06)
[2024-12-04 22:33] LABS: Bedside Glucose 172 mg/dL (74-106)
[2024-12-05] VITALS (8 sets, daily range): BP systolic 117–151; BP diastolic 61–76; PULSE 64–82; RESP 16–17; TEMP 36.4–36.7; O2SAT 97–100; BMI 37.3; BMI 37.5
[2024-12-05] MEDS: Colestipol 1 GM TABLET PO ×2 (06:26→13:56)
[2024-12-05] MEDS: Acetaminophen 500 MG Tablet 1000 MG PO ×2 (06:26→13:56)
[2024-12-05] MEDS: Insulin Lispro 100 UNIT/ML INSULN.PEN SC ×2 (06:29→12:15)
[2024-12-05] MEDS: oxyCODONE 5 MG Tablet PO (06:32)
[2024-12-05] MEDS: Gabapentin 400 MG Capsule PO ×2 (06:32→13:58)
[2024-12-05 07:06] LABS: Bedside Glucose 153 mg/dL (74-106)
--- NOTE | 2024-12-05 07:14 | PN.HOSP_ITS ---
Reason for Visit Reason for Visit: Diagnoses Type 2 diabetes mellitus without complications (12/03/24) Essential (primary) hypertension (12/03/24) Chronic diastolic (congestive) heart failure (12/03/24) Fracture of unspecified part of neck of right femur, initial encounter for closed fracture (12/03/24) Displaced intertrochanteric fracture of right femur, initial encounter for closed fracture (12/03/24) Unspecified fall, initial encounter (12/03/24) Subjective Subjective Feeling better. Objective Data Objective Data Vital Signs: Vital Signs Temp Pulse Resp BP Pulse Ox O2 Del Method O2 Flow Rate 36.4 C L 66 16 151/76 H 100 CPAP 2 12/05/24 06:05 12/05/24 06:05 12/05/24 06:05 12/05/24 06:05 12/05/24 06:05 12/05/24 06:05 12/04/24 22:11 FiO2 30 12/05/24 04:00 Oxygen Flow Rate (L/min) 2 Oxygen Delivery Method CPAP Weight: 95.98 kg Body Mass Index (BMI) 37.5 Intake & Output: Intake and Output for Last 24 Hours 12/03/24 12/04/24 12/05/24 23:59 23:59 23:59 Intake Total 950 / 1100 300 / 300 Balance 950 / 1100 300 / 300 Lab / Micro Data 12/05/24 06:03 12/05/24 06:03 Labs: Laboratory Results - last 24 hr 12/04/24 05:22: Vitamin D 25-Hydroxy 42.6 12/04/24 12:21: POC Glucose 120 H 12/04/24 22:06: POC Glucose 172 H 12/05/24 06:29: POC Glucose 153 H Radiography Diagnostic Testing: Radiology Impression Hip X-Ray 12/04/24 13:00 IMPRESSION: Successful intraoperative fixation of comminuted fracture of the right hip. For further detail of the procedure please see operative report. Reading Location: [facility] Physical Exam Const alert and no apparent distress HEENT head/scalp atraumatic and moist oral mucous membranes Resp normal respiratory effort, no retractions, no use of accessory muscles and clear to auscultation bilaterally Cardio regular rate, regular rhythm, S1 normal heart sound and S2 normal heart sound GI normal to inspection, nondistended, normoactive bowel sounds, soft to palpation, non-tender and non-distended Neuro Sensorium / Orientation: awake and alert Assessment & Plan Assessment/Plan (1) Fracture of right hip: PLAN: s/p mechanical fall. 25-OH d level 42.6. Start ergocalciferol status post gamma nail on 12/04. ortho recs: WBAT, outpt follow up in 2 weeks. VTE prophylaxis. PLAN: Plan Chronic conditions: * DM2: SSI. Insulin glargine. * HTN: stable. carvedilol * Crohn's dz: continue adalimumab as outpt * GERD: PPI. VTE prophylaxis: apixaban Disposition: to SNF pending insurance authorization. Charges/Coding Visit Charges Inpatient E&M: 42245 Subs Hosp L2
[2024-12-05 07:27] LABS: Absolute Lymphocyte Count 1.71 X10^3/uL (0.83-4.51); Absolute Neutrophil Count 5.9 X10^3/uL (2.0-7.7); Basophil# 0.02 X10^3/uL; Basophil% 0.2 % (0-1); Eosinophil# 0.02 X10^3/uL; Eosinophils% 0.2 % (0-5); Hematocrit 35.1 % (37-47); Hemoglobin 11.1 g/dL (12.0-15.0); Lymphocyte # 1.71 X10^3/ul (0.83-4.51); Lymphocyte % 20.3 % (19-41); Mean Corp Hgb Conc 31.6 g/dL (32-36); Mean Corpuscular Hgb 37.4 pg (27.0-32.0); Mean Corpuscular Volume 118.2 fL (81-99); Mean Platelet Vol. 11.8 fl (6.2-12.0); Monocyte# 0.75 X10^3/uL; Monocyte% 8.9 % (0-10); NRBC Flagged by Analyzer 0 % (0-5); Platelet Count 102 K/mm3 (150-450); RBC Distribution Width CV 13.5 % (11.6-14.6); RBC Distribution Width SD 59.2 fl (35.1-43.9); Red Blood Count 2.97 M/mm3 (4.2-5.4); White Blood Count 8.4 K/mm3 (4.4-11.0)
[2024-12-05 07:47] LABS: Anion Gap 10 (5-15); BUN 17 mg/dL (4-19); BUN/Creat Ratio 34.5 RATIO (10-20); Calcium,Total 8.9 mg/dL (7.6-11.0); Carbon Dioxide 20.4 mmol/L (21.0-32.0); Chloride 104 mmol/L (98-108); Creatinine, Serum 0.48 mg/dL (0.70-1.20); EST Glomerular Filtration Rate 101 (>60); Glucose 164 mg/dL (70-99); Potassium 4.8 mmol/L (3.3-5.1); Sodium Level 135 mmol/L (133-145)
[2024-12-05] MEDS: Carvedilol 12.5 MG Tablet PO (08:15)
[2024-12-05] MEDS: Calcium Carbonate 500 MG Tablet PO ×2 (08:16→12:10)
[2024-12-05] MEDS: Ergocalciferol 1.25 MG (50, 000 UNIT) Capsule PO (08:16)
--- NOTE | 2024-12-05 08:35 | PCM.PN.ORT ---
Subjective Subjective Chleo is a pleasant 69-year-old female postop day 1 status post gamma nailing of the right hip status post fall with intertrochanteric femur fracture. Reports being out of bed this morning with assistance and walker to the restroom and tolerated well. Pain control with as needed medications to satisfactory level. Objective Data Objective Data Vital Signs: Vital Signs Temp Pulse Resp BP Pulse Ox O2 Del Method O2 Flow Rate 97.6 F L 66 16 151/76 H 100 CPAP 2 12/05/24 06:05 12/05/24 06:05 12/05/24 06:05 12/05/24 06:05 12/05/24 06:05 12/05/24 06:05 12/04/24 22:11 FiO2 30 12/05/24 04:00 Oxygen Flow Rate (L/min) 2 Oxygen Delivery Method CPAP Weight: 211 lb 9.595 oz Body Mass Index (BMI) 37.5 Intake & Output: Intake and Output for Last 24 Hours 12/03/24 12/04/24 12/05/24 23:59 23:59 23:59 Intake Total 950 / 1100 300 / 300 Balance 950 / 1100 300 / 300 Lab / Micro Data Attestation: I reviewed the patient's lab results. 12/05/24 06:03 12/05/24 06:03 Labs: Laboratory Results - last 24 hr 12/04/24 12:21: POC Glucose 120 H 12/04/24 22:06: POC Glucose 172 H 12/05/24 06:03: WBC 8.4, RBC 2.97 L, Hgb 11.1 L, Hct 35.1 L, MCV 118.2 H D, MCH 37.4 H, MCHC 31.6 L D, RDW Std Deviation 59.2 H, RDW Coeff of Tuan 13.5, Plt Count 102 L, MPV 11.8, Immature Gran % (Auto) 0.400, Neut % (Auto) 70.0, Lymph % (Auto) 20.3, [place] % (Auto) 8.9, Eos % (Auto) 0.2, Baso % (Auto) 0.2, Absolute Neuts (auto) 5.9, Absolute Lymphs (auto) 1.71, Nucleated RBC % 0, Sodium 135, Potassium 4.8, Chloride 104, Carbon Dioxide 20.4 L, Anion Gap 10, BUN 17, Creatinine 0.48 L, Estim Creat Clear Calc 71.10, Est GFR (MDRD) Non-Af 101, BUN/Creatinine Ratio 34.5 H, Glucose 164 H, Calcium 8.9 12/05/24 06:29: POC Glucose 153 H Radiography Diagnostic Testing: Radiology Impression Hip X-Ray 12/04/24 13:00 IMPRESSION: Successful intraoperative fixation of comminuted fracture of the right hip. For further detail of the procedure please see operative report. Reading Location: [facility] Physical Exam Const oriented x3 and no apparent distress Constitutional Narrative: Lying upright in bed, alert and pleasant General Appearance: cooperative HEENT normocephalic Head and Scalp: atraumatic Resp normal respiratory effort and no use of accessory muscles Skin no rashes or lesions noted and no wounds Neuro moves all extremities Psych mental status grossly normal and affect normal Right Hip Date of injury: 12/03/24 Date of Surgery: 12/04/24 Skin: Yes CDI Contralateral Normal: Yes HIP: Postop dressing is dry and intact. There is approximately a dime size bloody drainage to distal portion of the bandage. No tenderness on palpation of the right side pelvis, knee, lower leg or distal. Calves are soft, supple negative Homans. Distal motor or sensory intact with brisk cap refill at 2 seconds and easily palpable pedal pulse at +2 is present. Positive discomfort with attempting straight leg raise and logroll. Assessment & Plan Assessment/Plan (1) Fracture, intertrochanteric, right femur: QUALIFIERS: Encounter type: initial encounter Fracture type: closed Fracture alignment: displaced Qualified Code(s): S72.141A - Displaced intertrochanteric fracture of right femur, initial encounter for closed fracture PLAN: In agreement with plan for short-term rehab stay is being coordinated by house medicine. WBAT with walker, PT/OT eval and tx, pain control F/U Outpatient in 2 weeks Case collaborated with Dr. Krueger on date of service This document has been transcribed using [employer] dictation software. There may be incorrect words, spelling, and punctuation.
--- NOTE | 2024-12-05 10:17 | CASEMGMT ---
Social Work Therapy is recommending short term rehab at SNF prior to return home. SW met with pt who is agreeable to SNF and preferred provider is [facility]. Referral sent to [facility] and they are able to accept. Precert started at this time. PASRR completed in [facility] for admission to SNF. Pt notified that [facility] has accepted. Plan: [facility], pending precert JERONIMO Carreno
[2024-12-05 11:47] LABS: Bedside Glucose 215 mg/dL (74-106)
[2024-12-05] MEDS: APIXABAN 2.5 MG TABLET (WCH) PO (12:09)
[2024-12-05] MEDS: Senna/Docusate Sodium 1 Tablet 2 TABLET PO (12:10)
[2024-12-05] MEDS: Pantoprazole Sodium 40 MG Tablet PO (12:15)
--- NOTE | 2024-12-05 13:40 | CHAPLAIN ---
Type of Pastoral Visit _x__ Initial Visit ___ Follow-up Visit ___ On-call Visit ___ General Patient Visit ___ Spiritual Assessment ___ Family Conference ___ Bereavement ___ Rapid Response ___ Code Blue ___ Other (describe below) Pastoral Care Referral From _x__ Patient ___ Family ___ Nurse ___ Physician ___ Sports Activities Foul Judge ___ Coroner Technician ___ Other (describe below) Sacrament/Intervention _x__ Active listening ___ Anointing ___ Sikhism ___ Bereavement ___ Communion ___ Peggy exploration ___ ___ Life review _x__ Prayer ___ Reconciliation ___ Sacrament of Sick _x__ Supportive presence ___ Wedding ___ Other (describe below) Pastoral Comments patient reports on great care from hospital staff; pt welcomes prayer for her recovery and continued healing; a friend is with her
--- NOTE | 2024-12-05 14:56 | TREXTCAR_ITS ---
Diet Diet Order/Speech Therapy: 12/04/24 17:49 Diet: Cardiac: Calorie-Controlled Dietary Modifications:: Consistent Carbohydrate How many daily calories?: 1800 calorie Routine Orders/Code Status Code Status: Full Code DC O2, CPAP, BIPAP needs Home O2 Discharge instructions: No Wound(s) LLE: Wound Type: scabs Left foot: Wound Type: Abrasion right hip: Wound Type: Surgical Incision Therapies Weight Bearing: Weight bearing as tolerated Extremity Affected:: Right Lower Physical Therapy: Eval and Treat Occupational Therapy: Eval and Treat Problem/Diagnosis (1) Fracture of right hip: Status: Acute Code(s): S72.001A - Fracture of unspecified part of neck of right femur, initial encounter for closed fracture Plan: s/p mechanical fall. 25-OH d level 42.6. Start ergocalciferol status post gamma nail on 12/04. ortho recs: WBAT, outpt follow up in 2 weeks. VTE prophylaxis. Plan Chronic conditions: * DM2: SSI. Insulin glargine. * HTN: stable. carvedilol * Crohn's dz: continue adalimumab as outpt * GERD: PPI. VTE prophylaxis: apixaban Disposition: to SNF pending insurance authorization. Allergies/Procedures Done in Hospital Allergies minocycline (From Minocin) Adverse Reaction (Verified 12/04/24 13:12) Other Type of Care/Length of Stay Estimated LOS: Convalescent Care Less Than 30 days Type of Care Needed: Skilled Rehab Potential: Good Prognosis: Good Additional Orders/Day of Discharge Day of Discharge: 12/05/24 Discharge Plan Admission Admit Date/Time: 12/03/24 17:44 Primary Reason for Your Visit: Right hip fracture. Attending Provider: Parrish Carpenter Primary Care Provider: SHIREEN SANDERS Consulting Providers: Isaac Krueger; Elizabet Rubi Discharge Orders/Prescriptions Prescriptions: New acetaminophen 500 mg Tablet 1,000 mg PO Q8 PRN (Reason: Pain) Qty: 0 0RF ergocalciferol (vitamin D2) [Vitamin D2] 1,250 mcg (50,000 unit) Capsule 1,250 mcg PO Q7D Qty: 7 0RF oxycodone 5 mg Tablet 5 mg PO Q4H PRN PRN (Reason: Pain Score 4-10) 3 Days Qty: 12 0RF insulin lispro [Humalog KwikPen Insulin] 100 unit/mL Insulin Pen See Protocol subcut ACHS Qty: 0 0RF Protocol: 3. Sliding Scale Insulin Med Dosing Condition: 150-189 mg/dl = 1 unit Condition: 190-229 mg/dl = 2 units Condition: 230-269 mg/dl = 3 units Condition: 270-309 mg/dl = 4 units Condition: 310-349 mg/dl = 5 units Condition: 350-399 mg/dl = 6 units Condition: 400-449 mg/dl = 7 units Condition: Greater than 449 call physician Protocol Text: Suggested for: - Patients on Total Daily Insulin Dose of 37-55 units - Obese, infected, or steroid patients MEDIUM DOSING ALGORITHIM Eliquis 5 mg Tablet 2.5 mg PO BID Qty: 56 0RF Continued cilostazol 100 mg tablet 100 mg PO BID atorvastatin 80 mg tablet 80 mg PO DAILY carvedilol 12.5 mg tablet 12.5 mg PO BID insulin glargine [Lantus U-100 Insulin] 100 unit/mL solution 70 unit subcut QPM gabapentin 400 mg capsule 400 mg PO TID benazepril-hydrochlorothiazide 20-12.5 mg tablet 2 tab PO DAILY pantoprazole 40 mg tablet,delayed release (DR/EC) 40 mg PO DAILY metformin 1,000 mg tablet 1,000 mg PO BID colestipol 1 gram tablet 1 g PO TID Jardiance 10 mg tablet 10 mg PO DAILY Discontinued tramadol 50 mg tablet 50 mg PO BID Referrals / Follow Up: Isaac Krueger MD [Med Staff - Active Staff] - Within 2 Weeks SHIREEN SANDERS DO [Primary Care Provider] - Within 2 Weeks Disposition Disposition (needs filled in before D/C Order can be placed): [facility]
--- NOTE | 2024-12-05 15:04 | DS.PCM_ITS ---
Providers Date of Admission: 12/03/24 Primary Care Physician: SHIREEN SANDERS DO Consultations 12/03/24 18:55 Consult: Orthopedics Routine Consulting Provider: Isaac Krueger Reason for Consult: R hip fracture EMERGENT Consult: No MD Notified: Yes Date Notified: 12/03/24 Time Notified: 18:55 Method of Notification: ED Physician Initiated Reason For Visit: RIGHT PROXIMAL FEMUR FRACTURE Diagnosis Discharge Diagnosis (1) Fracture of right hip: Status: Acute Code(s): S72.001A - Fracture of unspecified part of neck of right femur, initial encounter for closed fracture Plan: s/p mechanical fall. 25-OH d level 42.6. Start ergocalciferol status post gamma nail on 12/04. ortho recs: WBAT, outpt follow up in 2 weeks. VTE prophylaxis. Plan Chronic conditions: * DM2: SSI. Insulin glargine. * HTN: stable. carvedilol * Crohn's dz: continue adalimumab as outpt * GERD: PPI. VTE prophylaxis: apixaban Disposition: to SNF pending insurance authorization. Medications at Discharge Home Medications atorvastatin 80 mg tablet 80 mg PO DAILY 12/03/24 benazepril 20 mg-hydrochlorothiazide 12.5 mg tablet 2 tab PO DAILY htn 12/03/24 carvedilol 12.5 mg tablet 12.5 mg PO BID Hypertension 12/03/24 cilostazol 100 mg tablet 100 mg PO BID 12/03/24 colestipol 1 gram tablet 1 g PO TID 12/03/24 empagliflozin 10 mg tablet (Jardiance) 10 mg PO DAILY 12/03/24 gabapentin 400 mg capsule 400 mg PO TID 12/03/24 insulin glargine 100 unit/mL subcutaneous solution (Lantus U-100 Insulin) 70 unit subcut QPM 12/03/24 metformin 1,000 mg tablet 1,000 mg PO BID dm 12/03/24 pantoprazole 40 mg tablet,delayed release 40 mg PO DAILY 12/03/24 acetaminophen 500 mg tablet 1,000 mg (2 x 500 mg) PO Q8 PRN Pain #0 tabs 12/05/24 apixaban 5 mg tablet (Eliquis) 2.5 mg (1/2 x 5 mg) PO BID #56 tabs 12/05/24 ergocalciferol (vitamin D2) 1,250 mcg (50,000 unit) capsule (Vitamin D2) 1,250 mcg PO Q7D #7 caps 12/05/24 insulin lispro 100 unit/mL subcutaneous pen (Humalog KwikPen (U-100) Insulin) See Protocol subcut ACHS #0 mL 12/05/24 oxycodone 5 mg tablet 5 mg PO Q4H PRN PRN Pain Score 4-10 3 days #12 tabs 12/05/24 Hospital Course Operations - (right hip gamma nail. ) Summary of Care Provided Minutes Spent on Discharge: 32 Hospital Course: Patient presents with a right hip fracture after mechanical fall. Patient underwent a right femur cephalomedullary nailing on the eighth. Patient tolerated the procedure well. Patient's course was uncomplicated. We did get approval for [facility] facility today and patient be discharged to [facility] in stable condition. Weight / BMI Weight Weight: 95.98 kg Body Mass Index (BMI) 37.5 ABG / Lab / Microbiology Data 12/05/24 06:03 12/05/24 06:03 Laboratory: Laboratory Results - last 24 hr 12/04/24 22:06: POC Glucose 172 H 12/05/24 06:03: WBC 8.4, RBC 2.97 L, Hgb 11.1 L, Hct 35.1 L, MCV 118.2 H D, MCH 37.4 H, MCHC 31.6 L D, RDW Std Deviation 59.2 H, RDW Coeff of Tuan 13.5, Plt Count 102 L, MPV 11.8, Immature Gran % (Auto) 0.400, Neut % (Auto) 70.0, Lymph % (Auto) 20.3, [place] % (Auto) 8.9, Eos % (Auto) 0.2, Baso % (Auto) 0.2, Absolute Neuts (auto) 5.9, Absolute Lymphs (auto) 1.71, Nucleated RBC % 0, Sodium 135, Potassium 4.8, Chloride 104, Carbon Dioxide 20.4 L, Anion Gap 10, BUN 17, C reatinine 0.48 L, Estim Creat Clear Calc 71.10, Est GFR (MDRD) Non-Af 101, B UN/Creatinine Ratio 34.5 H, Glucose 164 H, Calcium 8.9 12/05/24 06:29: POC Glucose 153 H 12/05/24 11:11: POC Glucose 215 H Radiography Diagnostic Testing: Radiology Impression Hip X-Ray 12/04/24 13:00 IMPRESSION: Successful intraoperative fixation of comminuted fracture of the right hip. For further detail of the procedure please see operative report. [facility] Discharge Diet: No restrictions DC O2, CPAP, BIPAP Needs Home O2 Discharge instructions: No Meaningful Use Info Meaningful Use Meaningful Use Diagnoses (Choose all that apply): None applicable Ischemic Stroke Statin Dosing Therapy Reference: STATIN DOSE THERAPY REFERENCE: * Patients > 75 years receive moderate or high dose statin therapy. * Patients 75 years or YOUNGER should receive HIGH intensity statin dose unless contraindicated. You will be required to document reason for non-treatment if statin daily dose does not meet guidelines. HIGH DOSE STATIN THERAPY DAILY Atorvastatin > than or = to 40 mg Rosuvastatin > than or = to 20 mg Amlodipine + Atorvastatin > than or = to 2.5/40 mg Ezetimibe + Simvastatin 10/80 mg Simvastatin 80mg Discharge Plan Admission Admit Date/Time: 12/03/24 17:44 Primary Reason for Your Visit: Right hip fracture. Attending Provider: Parrish Carpenter Primary Care Provider: SHIREEN SANDERS Consulting Providers: Isaac Krueger; Elizabet Rubi Discharge Orders/Prescriptions Prescriptions: New acetaminophen 500 mg Tablet 1,000 mg PO Q8 PRN (Reason: Pain) Qty: 0 0RF ergocalciferol (vitamin D2) [Vitamin D2] 1,250 mcg (50,000 unit) Capsule 1,250 mcg PO Q7D Qty: 7 0RF oxycodone 5 mg Tablet 5 mg PO Q4H PRN PRN (Reason: Pain Score 4-10) 3 Days Qty: 12 0RF insulin lispro [Humalog KwikPen Insulin] 100 unit/mL Insulin Pen See Protocol subcut ACHS Qty: 0 0RF Protocol: 3. Sliding Scale Insulin Med Dosing Condition: 150-189 mg/dl = 1 unit Condition: 190-229 mg/dl = 2 units Condition: 230-269 mg/dl = 3 units Condition: 270-309 mg/dl = 4 units Condition: 310-349 mg/dl = 5 units Condition: 350-399 mg/dl = 6 units Condition: 400-449 mg/dl = 7 units Condition: Greater than 449 call physician Protocol Text: Suggested for: - Patients on Total Daily Insulin Dose of 37-55 units - Obese, infected, or steroid patients MEDIUM DOSING ALGORITHIM Eliquis 5 mg Tablet 2.5 mg PO BID Qty: 56 0RF Continued cilostazol 100 mg tablet 100 mg PO BID atorvastatin 80 mg tablet 80 mg PO DAILY carvedilol 12.5 mg tablet 12.5 mg PO BID insulin glargine [Lantus U-100 Insulin] 100 unit/mL solution 70 unit subcut QPM gabapentin 400 mg capsule 400 mg PO TID benazepril-hydrochlorothiazide 20-12.5 mg tablet 2 tab PO DAILY pantoprazole 40 mg tablet,delayed release (DR/EC) 40 mg PO DAILY metformin 1,000 mg tablet 1,000 mg PO BID colestipol 1 gram tablet 1 g PO TID Jardiance 10 mg tablet 10 mg PO DAILY Discontinued tramadol 50 mg tablet 50 mg PO BID Referrals / Follow Up: Isaac Krueger MD [Med Staff - Active Staff] - Within 2 Weeks SHIREEN SANDERS DO [Primary Care Provider] - Within 2 Weeks Disposition Disposition (needs filled in before D/C Order can be placed): [facility] Charges/Coding Visit Charges Inpatient E&M: 43797 Disch Hosp >30min
--- NOTE | 2024-12-05 15:15 | PHA.DC.MR.R ---
Pharmacy [place] Med Reconciliation Pharmacy Service has performed discharge medication reconciliation for this patient. The patient's discharge medication list was reviewed for discrepancies and discrepancies were resolved. Medications at Discharge Home Medications atorvastatin 80 mg tablet 80 mg PO DAILY 12/03/24 benazepril 20 mg-hydrochlorothiazide 12.5 mg tablet 2 tab PO DAILY htn 12/03/24 carvedilol 12.5 mg tablet 12.5 mg PO BID Hypertension 12/03/24 cilostazol 100 mg tablet 100 mg PO BID 12/03/24 colestipol 1 gram tablet 1 g PO TID 12/03/24 empagliflozin 10 mg tablet (Jardiance) 10 mg PO DAILY 12/03/24 gabapentin 400 mg capsule 400 mg PO TID 12/03/24 insulin glargine 100 unit/mL subcutaneous solution (Lantus U-100 Insulin) 70 unit subcut QPM 12/03/24 metformin 1,000 mg tablet 1,000 mg PO BID dm 12/03/24 pantoprazole 40 mg tablet,delayed release 40 mg PO DAILY 12/03/24 acetaminophen 500 mg tablet 1,000 mg (2 x 500 mg) PO Q8 PRN Pain #0 tabs 12/05/24 apixaban 5 mg tablet (Eliquis) 2.5 mg (1/2 x 5 mg) PO BID #56 tabs 12/05/24 ergocalciferol (vitamin D2) 1,250 mcg (50,000 unit) capsule (Vitamin D2) 1,250 mcg PO Q7D #7 caps 12/05/24 insulin lispro 100 unit/mL subcutaneous pen (Humalog KwikPen (U-100) Insulin) See Protocol subcut ACHS #0 mL 12/05/24 oxycodone 5 mg tablet 5 mg PO Q4H PRN PRN Pain Score 4-10 3 days #12 tabs 12/05/24
--- NOTE | 2024-12-05 15:18 | CASEMGMT ---
Social Work Precert has been obtained for pt to go to [facility].? Physician updated and pt is ready for discharge today.? PASRR and discharge orders sent to [facility] via [facility].? Transportation arranged with Physician ambulance for 3:45 pickup via wheelchair van.? SW met with pt and she is agreeable to discharge plan as stated above.?Pt's aunt Tati and bedside nurse notified of discharge time. Disposition: [facility], skilled level of care JERONIMO Carreno
--- NOTE | 2024-12-05 15:50 | CASEMGMT ---
TC back to [facility] to confirm oxygen orders and pt CPAP. Per [place], pt is ordered 2L at HS of oxygen although was told 3L this morning. He states they have no record of a CPAP at all or any bleed in.
--- NOTE | 2024-12-05 16:23 | CASEMGMT ---
Social Work Physician's ambulance here to pick and shovel man pt and stating pt cannot be transported via wheelchair and cot is required due to pt requiring assist of 2 for sit to stand transfers. Pt transported via cot. JERONIMO Carreno
== END 2024-12-05 16:36 | disposition skilled nursing facility (03) | DRG 536 ==
LOC: ED 17:14 → MS3 17:46
PROVIDERS: Orthopaedic Surgery Orthopaedic Surgery of the Spine; Student in an Organized Health Care Education/Training Program; Admitting Provider Internal Medicine; Emergency Provider Emergency Medicine; PCP Family Medicine
PROC: (CPT 27245; principal; 2024-12-04 13:30)
DX: S72.141A Displaced intertrochanteric fracture of right femur, initial encounter for closed fracture (principal); I50.32 Chronic diastolic (congestive) heart failure; K50.90 Crohn's disease, unspecified, without complications; E11.9 Type 2 diabetes mellitus without complications; I11.0 Hypertensive heart disease with heart failure; K21.9 Gastro-esophageal reflux disease without esophagitis; Z79.4 Long term (current) use of insulin; E78.5 Hyperlipidemia, unspecified; W18.41XA Slipping, tripping and stumbling without falling due to stepping on object, initial encounter; Z79.84 Long term (current) use of oral hypoglycemic drugs; Z79.02 Long term (current) use of antithrombotics/antiplatelets; G89.29 Other chronic pain; Z79.891 Long term (current) use of opiate analgesic
CPT/HCPCS: 36415; 70450; 73502; 76000; 80048; 82306; 82962; 83036; 85025; 85610; 85730; 86850; 86900; 86901; 93005; 94660; 97162; 97166; 99285; C1713; C1776; A4216; J2405

== ENCOUNTER → 2024-12-19 | Outpatient (CLI) | payer MEDICARE, SELFPAY ==
--- NOTE | 2024-12-19 14:44 | RAD_ITS ---
PROCEDURE: HIP, UNI W/ PELVIS 2-3 VIEWS 12/19/2024 REASON FOR EXAM: R HIP FX/ORIF TECHNIQUE: AP pelvis and two views right hip, 3 total images COMPARISON: 12/03/2024 FINDINGS: Fully locked right gamma nail appears intact and anatomic. Some suggestion of interval healing of intertrochanteric right femur fracture. Some displacement of the lesser trochanter fracture fragment. Bilateral symmetric appearing SI joints and pubic symphysis appear within limits. Lower lumbar spondylosis/discogenic change. The joint spaces appear within limits. Areas of overlying skin fernanda remain. RAD/HIP, UNI W/ Pelvis 2-3 Views IMPRESSION: Fully locked right gamma nail appears intact and anatomic. Some suggestion of i nterval healing of intertrochanteric right femur fracture. Some displacement of the lesser trochanter fracture fragment. Lower lumbar spondylosis/discogenic change. Areas of overlying skin fernanda remain. Reading Location: [id number]
== END | disposition home or self-care (01) ==
PROVIDERS: PCP Family Medicine; Referring Provider Nurse Practitioner Family; Visit Provider Nurse Practitioner Family
DX: S72.141A Displaced intertrochanteric fracture of right femur, initial encounter for closed fracture (principal)
CPT/HCPCS: 73502

== ENCOUNTER → 2025-01-21 | Outpatient (REF) | payer MEDICARE, SELFPAY ==
[2025-01-21 09:04] LABS: Hematocrit 33.8 % (37-47); Hemoglobin 10.8 g/dL (12.0-15.0); Mean Corpuscular Hgb 34.3 pg (27.0-32.0); Mean Corpuscular Volume 107.3 fL (81-99); Mean Platelet Vol. 11.2 fl (6.2-12.0); Platelet Count 168 K/mm3 (150-450); RBC Distribution Width CV 13.4 % (11.6-14.6); RBC Distribution Width SD 52.7 fl (35.1-43.9); Red Blood Count 3.15 M/mm3 (4.2-5.4); White Blood Count 5.9 K/mm3 (4.4-11.0)
[2025-01-21 09:24] LABS: Anion Gap 11 (5-15); BUN 12 mg/dL (4-19); BUN/Creat Ratio 20.2 RATIO (10-20); Calcium,Total 10.5 mg/dL (7.6-11.0); Carbon Dioxide 25.2 mmol/L (21.0-32.0); Chloride 106 mmol/L (98-108); Creatinine, Serum 0.59 mg/dL (0.70-1.20); EST Glomerular Filtration Rate 96 (>60); Glucose 71 mg/dL (70-99); Potassium 3.5 mmol/L (3.3-5.1); Sodium Level 142 mmol/L (133-145)
== END ==
LOC: OLS.SW 04:00
PROVIDERS: PCP Family Medicine; Referring Provider Internal Medicine; Visit Provider Internal Medicine
DX: E11.49 Type 2 diabetes mellitus with other diabetic neurological complication (principal)
CPT/HCPCS: 36415; 80048; 85027

== ENCOUNTER → 2025-04-28 | Outpatient (CLI) | payer MEDICARE, SELFPAY ==
--- OUTSIDE RECORDS SUMMARY | 2025-04-14 09:49 | XMS RPT_ITS ---
Author Name Auto Generated Organization OHIP Support Name Relationship Address Phone LALITHA IBARRA Next of Kin Unknown [phone] RADHAGWENT Next of Kin Unknown [phone] MADDY GOINS Next of Kin [address] [place] [phone] + LALITHA IBARRA Next of Kin Unknown [phone] GWEN GARCIAT Next of Kin Unknown [phone] MADDY GOINS Next of Kin [address] [place] [address] [place] [address] + BENCHSHAKEEL, LALITHA Next of Kin Unknown [phone] RADHA HARVEY Next of Kin Unknown [phone] MADDY GOINS Next of Kin [address] [place] [address] [place] [address] + RADHA HARVEY Next of Kin Unknown [phone] MADDY GOINS Next of Kin [address] [place] [address], [place] [address] + GWEN GARCIAT Next of Kin Unknown [phone] MADDY GOINS Next of Kin [address] [place] [address], [place] [address] + GWEN GARCIAT Next of Kin Unknown [phone] MADDY GOINS Next of Kin [address] [place] [address] [place] [address] + GWEN GARCIAT Next of Kin Unknown +[phone] MADDY GOINS Next of Kin [address] [place] [address] [place] [address] + HARVEY GARCIA Next of Kin Unknown [phone] GOINSMADDY Next of Kin [address] [place] [address] + Care Team Providers Care Hair And Makeup Designer Name Role Phone THAI MARTINS Attending Unavailable CARY, ESPERANZA Primary Care Unavailable TATIANA NANCE Admitting Unavailable TATIANA NANCE Attending Unavailable CARY, ESPERANZA Primary Care Unavailable CARY, ESPERANZA Attending Unavailable CARY, ESPERANZA Primary Care Unavailable CARY, ESPERANZA Attending Unavailable CARY, ESPERANZA Referring Unavailable CARY, ESPERANZA Primary Care Unavailable DIANNE ESCOBAR Attending Unavailable KRAYNICKDIANNE Referring Unavailable CARY, ESPERANZA Primary Care Unavailable CARY, ESPERANZA Attending Unavailable CARY, ESPERANZA Primary Care Unavailable KRAYNICK, DIANNE Attending Unavailable CARY, ESPERANZA Primary Care Unavailable CARY, ESPERANZA Attending Unavailable CARY, ESPERANZA Primary Care Unavailable PROBLEMS DATE TYPE CONDITION / CODE ATTENDING STATUS [facility] 05/11/2022 Admitting Diagnosis Type 2 diabetes mellitus with hyperglycemia (HCC) / E11.65(ICD-10) [facility] Admitting Diagnosis Obesity, class 3 (HCC) / E66.813(ICD-10) LUIS DANIEL [facility] 05/11/2022 Admitting Diagnosis Body mass index (BMI) 40.0-44.9, adult (HCC) / Z68.41(ICD-10) LUIS DANIEL [facility] 02/12/2025 Admitting Diagnosis Hospital Follow-up / 832() LUIS DANIEL [facility] 11/26/2024 Admitting Diagnosis Other specified cardiac arrhythmias / I49.8(ICD-10) CHANDA [facility] 11/05/2024 Admitting Diagnosis Abnormal electrocardiogram (ECG) (EKG) / R94.31(ICD-10) CHANDA [facility] 05/11/2022 Admitting Diagnosis Resistant hypertension / I1A.0(ICD-10) CHANDA TH[facility] 05/11/2022 Admitting Diagnosis Chronic diastolic (congestive) heart failure (HCC) / I50.32(ICD-10) CHANDA THAI [facility] 05/11/2022 Admitting Diagnosis Mixed hyperlipidemia / E78.2(ICD-10) CHANDA THAI [facility] 05/11/2022 Admitting Diagnosis Type 2 diabetes mellitus with diabetic polyneuropathy (HCC) / E11.42(ICD-10) ESPERANZA CARY [facility] 05/11/2022 Admitting Diagnosis intermediate manager (current) use of insulin (HCC) / Z79.4(ICD-10) ESPERANZA CARY [facility] 11/19/2024 Admitting Diagnosis Dizziness and giddiness / R42(ICD-10) SHAWN DIANNE [facility] 07/09/2023 Admitting Diagnosis Abnormal result of other cardiovascular function study / R94.39(ICD-10) SHAWN DIANNE [facility] 07/21/2024 Admitting Diagnosis Crohn's disease of both small and large intestine without complications (HCC) / K50.80(ICD-10) JAJATORIE [facility] 07/21/2024 Admitting Diagnosis Diarrhea, unspecified / R19.7(ICD-10) GOYO [facility] 07/21/2024 Admitting Diagnosis Right lower quadrant pain / R10.31(ICD-10) PERFECTOBISITORIE [facility] 05/29/2024 Admitting Diagnosis Encounter for screening mammogram for malignant neoplasm of breast / Z12.31(ICD-10) ESPERANZA CARY [facility] PROCEDURES No Procedure Records Found RESULTS 36 Observed: 04/22/2025 9:38 AM Status: COMPLETED Source: [facility] Message released to patient as written. Esperanza Cary, DO to Yonis Fuentes 04/15/25 9:14 AM Grey Whitney, Your A1c has gone up a lot to 11.0 from 6.9. I know you mentioned that your blood sugars have been higher, but what kind of numbers are you seeing at home? Your blood sugar on labs was over 400 yesterday. How much Lantus are you using? I also see metformin and jardiance - are you taking those regularly? Please let me know if you have any questions or concerns. Dr. Cary Patient's further questions if applicable: Patient voiced understanding, and states that: She is taking 70 units of Lantus Her blood sugar results average from 150 to 275 not taking Jardiance Please advise. Were all questions from office addressed or relayed to the patient from encounter: Yes OFFICE VISIT Observed: 04/14/2025 10:20 AM Status: COMPLETED Source: [employer] [facility] [id number] Yonis Fuentes 01/1955 F Date Provider Department Center 04/14/2025 [id number] CASTELLON [facility] Family History Problem Relation Age of Onset Breast cancer Mother 46 Heart disease Mother Heart disease Father Heart disease Maternal Grandmother Heart disease Maternal Grandfather Breast cancer Paternal Grandmother 60 Heart disease Paternal Grandmother Kidney cancer Paternal Grandmother 65 Heart disease Paternal Grandfather Liver cancer Mother's Sister 65 Colon cancer Maternal Cousin 29 Colon cancer Maternal Cousin 58 Colon cancer Maternal Cousin Other Other Comments: No FMH of MM Breast cancer Mother's Brother 65 Family Status - Relation Status Age at Mother Father Maternal Grandmother Maternal Grandfather Paternal Grandmother Paternal Grandfather Mother's Sister Maternal Cousin Maternal Cousin Alive Maternal Cousin Alive Other Mother's Brother Alive Level of Service:[id number] ME PPPS, SUBSEQ VISIT Reason for Visit and Comments: Medicare Annual Wellness Visit Subsequent [[id number] Observed: 04/14/2025 10:20 AM Status: COMPLETED [facility] an for Yonis Fuentes - 04/14/2025 Medicare offers a range of preventative health benefits. Some of the tests and screenings are paid in full while others may be subject to a deductible, co-insurance, and / or copay. Some of these benefits include a comprehensive review of your medical history including lifestyle, illnesses that may run in your family, and various assessments and screenings as appropriate. After reviewing your medical record and screening and assessments performed today, your provider may have ordered immunizations, labs, imaging, and / or referrals for you. A list of these orders (if applicable) as well as your Preventative Care list are included within your After Visit Summary for your review. Other Preventative Recommendations: A preventive eye exam by an talent sourcing specialist is recommended every 1-2 years to screen for glaucoma, cataracts, macular degeneration, and other eye disorders. A preventive dental visit is recommended every 6 months. Try to get at least 150 minutes of exercise per week or 10,000 steps per day on a pedometer. You need 1200-1500mg of calcium and 5626-9490 international units of vitamin D per day. It is possible to meet your calcium requirement with diet alone, but a vitamin D supplement is usually necessary to meet this goal. When exposed to the sun, use a sunscreen that protects against both UVA and UVB radiation with an SPF of 30 or greater. Reapply every 2-3 hours or after sweating, drying off with a towel, or swimming. Always wear a seat belt when traveling in a car. Always wear a helmet when riding a bicycle or a motorcycle PROGRESS NOTE Observed: 04/14/2025 10:20 AM Status: COMPLETED Source: [facility] - [address] [facility] [address] Dept: [phone] Dept Chief Complaint: Yonis Fuentes is an 69 y.o. female here for an annual wellness visit. Assessment/Plan : Assessment & Plan Routine general medical examination at health care facility Type 2 diabetes mellitus with diabetic polyneuropathy, without long-term current use of insulin (HCC) Chronic, stable, continue current management plan with metformin Neuropathy is well controlled with gabapentin Orders: Comprehensive metabolic panel; Future Lipid panel; Future Hemoglobin A1c; Future Microalbumin / creatinine urine ratio; Future CBC; Future Vitamin B12; Future TSH; Future Class 3 severe obesity due to excess calories with serious comorbidity and body mass index (BMI) of 40.0 to 44.9 in adult Chronic, stable, encouraged continued weight loss efforts Orders: Comprehensive metabolic panel; Future Lipid panel; Future Hemoglobin A1c; Future Microalbumin / creatinine urine ratio; Future CBC; Future Other age-related cataract of both eyes Patient is cleared for surgery at this time. Asked her to hold aspirin and any nsaids for 5 days prior to surgery Crohn's disease of both small and large intestine without complication (HCC) Chronic, stable, continue current management plan with Elbert, follow up with GI Chronic heart failure with preserved ejection fraction (HCC) Chronic, stable, continue current management plan with magdalena burgos, follow up with cardiology I have reviewed and reconciled the medication list with the patient today. Current Medications[1] Also reviewed during this visit: The following health maintenance schedule was reviewed with the patient and provided in printed form in the after visit summary: Health Maintenance Topic Date Due Echocardiogram Never done Diabetes: Foot Exam Never done Diabetes: Dental Exam Never done DTaP/Tdap/Td Vaccines (1 - Tdap) Never done RSV Immunization for Adults (1 - Risk 60-74 years 1-dose series) Never done Zoster Vaccines (2 of 2) 08/05/2020 Diabetes: Urine Albumin-Creatinine Ratio for Kidney Health 04/13/2024 Medicare Advantage Annual Wellness Visit 07/30/2024 COVID-19 Vaccine ( season) 2025 Creatinine Level 04/04/2025 Potassium Level 04/04/2025 Diabetes: Estimated Glomerular Filtration Rate for Kidney Health 04/04/2025 Lipid Panel 04/04/2025 Influenza Vaccine (1) 03/30/2025 Mammogram 05/29/2025 Diabetes: Hemoglobin A1C 11/25/2025 Depression Screening 02/12/2026 Diabetes: Retinopathy Screening 03/10/2026 Colorectal Cancer Screening 07/21/2034 Pneumococcal Vaccine: 50+ Years Completed Hepatitis C Screening Completed Bone Density Scan Completed RSV Immunization under 20 Months Aged Out HIB Vaccines Aged Out Hepatitis B Vaccines Aged Out IPV Vaccines Aged Out Hepatitis A Vaccines Aged Out Meningococcal Vaccine Aged Out Rotavirus Vaccines Aged Out HPV Vaccines Aged Out Meningococcal B Vaccine Aged Out List of current healthcare providers: Patient Care Team: Esperanza Cary DO as PCP - General Orders Placed This Encounter Procedures Comprehensive metabolic panel Standing Status: Future Number of Occurrences: 1 Expected Date: 04/14/2025 Expiration Date: 04/14/2026 Lipid panel Standing Status: Future Number of Occurrences: 1 Expected Date: 04/14/2025 Expiration Date: 04/14/2026 Hemoglobin A1c Standing Status: Future Number of Occurrences: 1 Expected Date: 04/14/2025 Expiration Date: 04/14/2026 Microalbumin / creatinine urine ratio Standing Status: Future Number of Occurrences: 1 Expected Date: 04/14/2025 Expiration Date: 04/14/2026 CBC Standing Status: Future Number of Occurrences: 1 Expected Date: 04/14/2025 Expiration Date: 04/14/2026 Vitamin B12 Standing Status: Future Number of Occurrences: 1 Expected Date: 04/14/2025 Expiration Date: 04/14/2026 TSH Standing Status: Future Number of Occurrences: 1 Expected Date: 04/14/2025 Expiration Date: 04/14/2026 Review of Systems Constitutional: Negative for appetite change, chills, fatigue and fever. HENT: Negative for congestion, ear pain, hearing loss, postnasal drip, sore throat and trouble swallowing. Eyes: Negative for discharge, itching and visual disturbance. Respiratory: Negative for cough, shortness of breath and wheezing. Cardiovascular: Negative for chest pain, palpitations and leg swelling. Gastrointestinal: Negative for abdominal pain, constipation, diarrhea, nausea and vomiting. Endocrine: Negative for cold intolerance, heat intolerance, polydipsia, polyphagia and polyuria. Genitourinary: Negative for difficulty urinating, frequency, urgency, vaginal bleeding, vaginal discharge and vaginal pain. Musculoskeletal: Negative for arthralgias, back pain, joint swelling and myalgias. Skin: Negative for color change, rash and wound. Neurological: Negative for dizziness, tremors, seizures, speech difficulty, weakness, numbness and headaches. Hematological: Negative for adenopathy. Does not bruise/bleed easily. Psychiatric/Behavioral: Negative for agitation, decreased concentration, dysphoric mood and sleep disturbance. The patient is not nervous/anxious. Physical Exam Vitals and nursing note reviewed. Constitutional: General: She is not in acute distress. Appearance: Normal appearance. She is not ill-appearing. HENT: Head: Normocephalic and atraumatic. Eyes: Conjunctiva/sclera: Conjunctivae normal. Cardiovascular: Rate and Rhythm: Normal rate and regular rhythm. Pulses: Normal pulses. Heart sounds: Normal heart sounds. No murmur heard. No gallop. Pulmonary: Effort: Pulmonary effort is normal. No respiratory distress. Breath sounds: Normal breath sounds. No stridor. No wheezing, rhonchi or rales. Chest: Chest wall: No tenderness. Musculoskeletal: Cervical back: Neck supple. Right lower leg: No edema. Left lower leg: No edema. Neurological: General: No focal deficit present. Mental Status: She is alert and oriented to person, place, and time. Psychiatric: Mood and Affect: Mood normal. Behavior: Behavior normal. Thought Content: Thought content normal. Judgment: Judgment normal. Objective : BP (!) 146/87 Pulse 65 Temp 36.2 ?C (97.2 ?F) (Temporal) Ht 5' 3 (1.6 m) Wt 207 lb (93.9 kg) BMI 36.67 kg/m? No results found. Subjective : Cataract surgery with Dr. Linares Previous surgery hip replacement - December 04 No issues with anesthesia No history of DVT No history of bleeding disorder No chest pain or sob BS have been on the high side Health Risk Assessment: General: General In general, how would you say your health is?: (!) Fair In the past 7 days, have you experienced any of the following: New or Increased Pain, New or Increased Fatigue, Loneliness, Social Isolation, Stress or Anger?: No Do you get the social and emotional suppport you need?: Yes Interventions: Poor self-assessment of health status: Patient declines any further evaluation / treatment for this issue. Health Habits/Nutrition: Health Habits / Nutrition On average, how many days per week do you engage in moderate to strenous exercise (like a brisk walk)?: 3 days On average, how man minutes do you engage in exercise at this level?: 30 min Have you lost any weight without trying in the past 3 months? : No Have you seen the dentist within the past year?: Yes Hearing/ Vision: Hearing / Vision Do you or your family notice any trouble with your hearing that hasn't been managed with hearing aids?: No Do you have difficulty driving, watching TV, or doing any of your daily activities because of your eyesight?: (!) Yes Have you had an eye exam within the past year?: Yes No results found. Interventions: Vision concerns: Patient encouraged to make appointment with his / her talent sourcing specialist Safety: Safety Do you have any tripping hazards - loose or unsecured carpets or rugs?: No Do you have any tripping hazards - clutter in doorways, halls, or stairs?: No Do you have either shower bars, grab bars, non-slip mats or non-slip surfaces in your shower or bathtub? : Yes Do all your stairways have a railing or banister? : Not Applicable Do you fasten your seatbelt when you are in a car?: Yes ADL: ADL In the past 7 days, did you need help from others to perform any of the following everyday activities: Eating, dressing, grooming,bathing, toileting, or walking / balance? : (!) Yes Select all that apply: Bathing In the past 7 days, did you need help from others to take care of any of the following: laundry, housekeeping, banking / finances,shopping, telephone use, food preparation, transportation, or taking medications? : Yes Select all that apply: Housekeeping, Transportation Interventions: Living Will: Living Will Do you have a living will?: Yes Cognitive: Cognitive Screening: Mini-Cog Words Recalled: 3 Total Score Interpretation: Normal Mini-Cog Interventions: Fall Risk: Fall Risk One or more falls in the last year:: Yes Advised to use a cane or walker to get around safely:: Yes Feels unsteady when walking:: No Steadies self on furniture while walking at home:: Yes Worried about falling:: No Interventions: Depression Screening: Over the past 2 weeks, how often have you been bothered by any of the following problems? Little interest or pleasure in doing things: Not at all Feeling down, depressed, or hopeless: Not at all Patient Health Questionnaire-2 Score: 0 Tobacco Use: Tobacco Use History[2] Alcohol Use: Audit Alcohol Screening Q1: How often do you have a drink containing alcohol?: Never Q3: How often do you have six or more drinks on one occasion?: Never [1] Current Outpatient Medications Medication Sig Dispense Refill Accu-Chek Berenice Plus test strip Use as instructed 200 strip 3 adalimumab (Humira) 40 MG/0.4ML Prefilled Syringe Kit prefilled syringe Inject 40 mg under the skin. alendronate (Fosamax) 70 MG tablet Take 1 tablet (70 mg) by mouth every 7 days. 12 tablet 3 aspirin 81 MG EC tablet Take 1 tablet by mouth in the morning. atorvastatin (Lipitor) 80 MG tablet Take 1 tablet (80 mg) by mouth daily. 90 tablet 3 benazepril-hydroCHLOROthiazide (Lotensin HCT) 20-12.5 MG tablet Take 2 tablets by mouth daily. 180 tablet 0 carvedilol (Coreg) 12.5 MG tablet Take 1 tablet (12.5 mg) by mouth 2 times daily (with meals). 180 tablet 3 cilostazol (Pletal) 100 MG tablet Take 100 mg by mouth 2 times daily. colestipol (Colestid) 1 g tablet TAKE ONE TABLET BY MOUTH 3 TIMES DAILY DIRECTED Continuous Blood Gluc Sensor (FreeStyle Jenni 3 Sensor) misc every 14 (fourteen) days. 6 each 1 empagliflozin (Jardiance) 10 MG TAKE 1 TABLET BY MOUTH DAILY 90 tablet 0 fexofenadine (Ely) 180 MG tablet Take 1 tablet by mouth in the morning. furosemide (Lasix) 20 MG tablet Take 1 tablet (20 mg) by mouth 2 times daily. 180 tablet 3 gabapentin (Neurontin) 300 MG capsule TAKE ONE CAPSULE BY MOUTH 3 TIMES DAILY insulin glargine (Lantus) 100 UNIT/ML injection Inject 70 Units under the skin every evening. 40 mL 3 insulin syringe-needle U-100 30G X 1/2 1 ML misc Use to inject 1-4 times daily as directed. 100 each 3 metFORMIN (Glucophage) 1000 MG tablet Take 1 tablet (1,000 mg) by mouth 2 times daily (with meals). 180 tablet 3 nitroglycerin (Nitrostat) 0.[address] 1 tablet (0.4 mg) under the tongue as needed for chest pain. 30 tablet 3 pantoprazole (ProtoNix) 40 MG EC tablet Take 1 tablet by mouth in the morning and 1 tablet before bedtime. potassium chloride CR (Klor-Con M20) 20 MEQ ER tablet Take 1 tablet by mouth as needed. spironolactone (Aldactone) 25 MG tablet Take 1 tablet (25 mg) by mouth every morning. 90 tablet 3 traMADol (Ultram) 50 MG tablet Take 50 mg by mouth every 8 hours as needed. No current facility-administered medications for this visit. [2] Social History Tobacco Use Smoking Status Never Smokeless Tobacco Never PROGRESS NOTE Observed: 04/14/2025 10:20 AM Status: COMPLETED Source: [facility] Chronic, stable, continue cu rrent management plan with magdalena burgos, follow up with cardiology PROGRESS NOTE Observed: 04/14/2025 10:20 AM Status: COMPLETED Source: [facility] Chronic, stable, encouraged continued weight loss efforts Orders: Comprehensive metabolic panel; Future Lipid panel; Future Hemoglobin A1c; Future Microalbumin / creatinine urine ratio; Future CBC; Future PROGRESS NOTE Observed: 04/14/2025 10:20 AM Status: COMPLETED Source: [facility] Chronic, stable, continue cu rrent management plan with metformin Neuropathy is well controlled with gabapentin Orders: Comprehensive metabolic panel; Future Lipid panel; Future Hemoglobin A1c; Future Microalbumin / creatinine urine ratio; Future CBC; Future Vitamin B12; Future TSH; Future 36 Observed: 03/16/2025 2:51 PM Status: COMPLETED Source: [employer] [facility] MEDICATION ADHERENCE Yonis Fuentes - 1955 PCP: Esperanza Cary, DO Per insurance med adherence report, patient is due for refills on Atorvastatin. Last filled 01/30/2024 Quantity: 90 Refills: 3 Per chart review, patient does not have refills. Pended for approval if appropriate. [facility] - [place], [place] - [address] [facility] [address] After chart review, patient should still be on this medication but needs a new prescription. Pended Rx for your review. Please consider 90 day supply if appropriate. Last appointment 02/12/2025 , Next appointment is 04/14/2025 36 Observed: 03/16/2025 11:24 AM Status: COMPLETED Source: [facility] Appointment scheduled. 36 Observed: 03/16/2025 9:55 AM Status: COMPLETED Source: [facility] Please help her schedule a 4 0 min preop within 30 days of surgery 36 Observed: 03/13/2025 4:28 PM Status: COMPLETED Source: [employer] [facility] Name of Caller: Yonis Contact Reason for Appointment: Surgical Clearance, eye surgery scheduled for 04/27/25 Office Name: [facility] Medication Refills need, if any: n/a Medication Name: n/a 36 Observed: 02/26/2025 3:19 PM Status: COMPLETED Source: [employer] [facility] Faxed and confirmed 36 Observed: 02/26/2025 11:46 AM Status: COMPLETED Source: [facility] [facility] Name of caller: Lay Contact phone number: [phone] Relationship to Patient: [facility] Provider: Dr. Cary Practice: [place] Chief Complaint/Reason for Call: Please refer to TE from today 02/26. Lay states they received a fax with a office visit note from 02/12 but they need a signed copy of this. Lay would like a signed copy faxed to #[phone]. Please advise. Best time of day caller can be reached: Any Patient advised that office/PCP has 24-48 business hours to return their call: No 36 Observed: 02/26/2025 7:40 AM Status: COMP LETED Source: [employer] [facility] faxed 36 Observed: 02/25/2025 4:19 PM Status: COMPLETED Source: [employer] [facility] Name of caller: Lay Contact phone number: [phone] Relationship to Patient: [facility] Provider: Dr. Cary Practice: [facility] Chief Complaint/Reason for Call: Lay called in asking for a copy of the office notes from when Patient was seen on 02/12/25. Lay provided the fax number [phone]. Please advise. Best time of day caller can be reached: Any Patient advised that office/PCP has 24-48 business hours to return their call: No OFFICE VISIT Observed: 02/12/2025 10:20 AM Status: COMPLETED Source: [facility] [facility] [id number] Yonis Fuentes 01/1955 [facility] Provider Department Center 02/12/2025 [id number] SALINAS [facility] Family History Problem Relation Age of Onset Breast cancer Mother 46 Heart disease Mother Heart disease Father Heart disease Maternal Grandmother Heart disease Maternal Grandfather Breast cancer Paternal Grandmother 60 Heart disease Paternal Grandmother Kidney cancer Paternal Grandmother 65 Heart disease Paternal Grandfather Liver cancer Mother's Sister 65 Colon cancer Maternal Cousin 29 Colon cancer Maternal Cousin 58 Colon cancer Maternal Cousin Other Other Comments: No FMH of MM Breast cancer Mother's Brother 65 Family Status - Relation Status Age at Mother Father Maternal Grandmother Maternal Grandfather Paternal Grandmother Paternal Grandfather Mother's Sister Maternal Cousin Maternal Cousin Alive Maternal Cousin Alive Other Mother's Brother Alive Level of Service:71564 ME OFFICE/OUTPATIENT ESTABLISHED MOD MDM 30 MIN Reason for Visit and Comments: Hospital Follow-up [832] PROGRESS NOTE Observed: 02/12/2025 10:20 AM Status: COMPLETED Source: [facility] [address] [address] Post-Discharge Hospital Follow Up Date of Hospital Admission: unknown - obtain records Date of Hospital Discharge: 02/04/25 from rehab Readmission Risk Score: Predictive Model Details 27% Factor Value Risk of Hospital Admission or ED Visit Model 27% Is in Relationship No 17% Has Anemia Yes 15% Has Medicare Yes 15% Has CVD Yes 14% Has Diabetes Yes 9% Has CHF Yes 4% Has PCP Yes ASSESSMENT/PLAN 1. Benign essential HYPERTENSION Chronic, blood pressure is elevated today. I will have her check with the visiting nurse over the next couple of weeks. If it continues to be elevated at home, we will need to increase her medications. For the time being, she will continue Coreg 12.5 mg twice daily and Lotensin 2 tabs daily. 2. S/P right hip fracture -s/p surgery. Healing well. Continue physical therapy. 3. Type 2 diabetes mellitus with hyperglycemia, without long-term current use of insulin (HCC) Chronic, blood sugars have been a little bit higher than usual. She states they are running around 140. Will continue Jardiance and call with blood sugars in 1 to 2 weeks. Medical Decision Making moderate No follow-ups on file. Espernaza Cary DO 02/12/25 10:17 AM SUBJECTIVE HPI Inpatient course: Discharge summary reviewed Interval History Yonis is a 69-year-old white female with a complicated past medical history. She presents today for hospital follow-up. She states that she was shopping at [employer] and tripped in the parking lot. She fell and broke her right hip. She was admitted to [facility]. She underwent surgery and then was at rehab for 2 weeks. She is now home and doing well. Her blood sugars and blood pressure have been a little bit higher than usual. Her pain has been well-controlled. She is able to do what she needs to at home. She is getting home physical therapy and nursing. They have been checking her blood pressure at home as well. I have performed a medication reconciliation during this visit and have reconciled the medications patient is taking as of now against medications ordered at time of hospital discharge. Current Medications[1] Review of Systems Constitutional: Negative for appetite change, chills, fatigue and fever. Respiratory: Negative for cough, shortness of breath and wheezing. Cardiovascular: Negative for chest pain, palpitations and leg swelling. Genitourinary: Negative. OBJECTIVE BP (!) 148/98 Pulse 76 Temp 36.7 ?C (98 ?F) Ht 5' 3 (1.6 m) SpO2 97% BMI 37.02 kg/m? Physical Exam Vitals and nursing note reviewed. Constitutional: General: She is not in acute distress. Appearance: Normal appearance. She is obese. She is not ill-appearing. HENT: Head: Normocephalic and atraumatic. Eyes: Conjunctiva/sclera: Conjunctivae normal. Cardiovascular: Rate and Rhythm: Normal rate and regular rhythm. Pulses: Normal pulses. Heart sounds: Normal heart sounds. No murmur heard. No gallop. Pulmonary: Effort: Pulmonary effort is normal. No respiratory distress. Breath sounds: Normal breath sounds. No stridor. No wheezing, rhonchi or rales. Chest: Chest wall: No tenderness. Musculoskeletal: Cervical back: Neck supple. Right lower leg: No edema. Left lower leg: No edema. Neurological: General: No focal deficit present. Mental Status: She is alert and oriented to person, place, and time. Psychiatric: Mood and Affect: Mood normal. Behavior: Behavior normal. Thought Content: Thought content normal. Judgment: Judgment normal. [1] Current Outpatient Medications: Accu-Chek Berenice Plus test strip, Use as instructed, Disp: 200 strip, Rfl: 3 adalimumab (Humira) 40 MG/0.4ML Prefilled Syringe Kit prefilled syringe, Inject 40 mg under the skin., Disp: , Rfl: alendronate (Fosamax) 70 MG tablet, Take 1 tablet (70 mg) by mouth every 7 days., Disp: 12 tablet, Rfl: 3 aspirin 81 MG EC tablet, Take 1 tablet by mouth in the morning., Disp: , Rfl: atorvastatin (Lipitor) 80 MG tablet, Take 1 tablet (80 mg) by mouth daily., Disp: 90 tablet, Rfl: 3 benazepril-hydroCHLOROthiazide (Lotensin HCT) 20-12.5 MG tablet, Take 2 tablets by mouth daily., Disp: 180 tablet, Rfl: 0 carvedilol (Coreg) 12.5 MG tablet, Take 1 tablet (12.5 mg) by mouth 2 times daily (with meals)., Disp: 180 tablet, Rfl: 3 cilostazol (Pletal) 100 MG tablet, Take 100 mg by mouth 2 times daily., Disp: , Rfl: colestipol (Colestid) 1 g tablet, TAKE ONE TABLET BY MOUTH 3 TIMES DAILY DIRECTED, Disp: , Rfl: Continuous Blood Gluc Sensor (FreeStyle Jenni 3 Sensor) [facility], every 14 (fourteen) days., Disp: 6 each, Rfl: 1 empagliflozin (Jardiance) 10 MG, TAKE 1 TABLET BY MOUTH DAILY, Disp: 90 tablet, Rfl: 0 fexofenadine (Ely) 180 MG tablet, Take 1 tablet by mouth in the morning., Disp: , Rfl:furosemide (Lasix) 20 MG tablet, Take 1 tablet (20 mg) by mouth 2 times daily., Disp: 180 tablet, Rfl: 3 gabapentin (Neurontin) 300 MG capsule, TAKE ONE CAPSULE BY MOUTH 3 TIMES DAILY, Disp: , Rfl: insulin glargine (Lantus) 100 UNIT/ML injection, Inject 70 Units under the skin every evening., Disp: 40 mL, Rfl: 3 insulin syringe-needle U-100 30G X 1/2 1 ML [facility], Use to inject 1-4 times daily as directed., Disp: 100 each, Rfl: 3 metFORMIN (Glucophage) 1000 MG tablet, Take 1 tablet (1,000 mg) by mouth 2 times daily (with meals)., Disp: 180 tablet, Rfl: 3 nitroglycerin (Nitrostat) 0.4 MG SL tablet, Place 1 tablet (0.4 mg) under the tongue as needed for chest pain., Disp: 30 tablet, Rfl: 3 pantoprazole (ProtoNix) 40 MG EC tablet, Take 1 tablet by mouth in the morning and 1 tablet before bedtime., Disp: , Rfl: potassium chloride CR (Klor-Con M20) 20 MEQ ER tablet, Take 1 tablet by mouth as needed., Disp: , Rfl: spironolactone (Aldactone) 25 MG tablet, Take 1 tablet (25 mg) by mouth every morning., Disp: 90 tablet, Rfl: 3 traMADol (Ultram) 50 MG tablet, Take 50 mg by mouth every 8 hours as needed., Disp: , Rfl: 36 Observed: 02/09/2025 2:36 PM Status: COMP LETED Source: [facility] Noted 36 Observed: 02/09/2025 2:30 PM Status: COMPLETED Source: [facility] Name of caller: Steve Contact phone number: [phone] Relationship to Patient: [facility] Provider: Dr. Cary Practice: [facility] Chief Complaint/Reason for Call: Steve called in stating that he saw Patient for evaluation and he plans to see her twice a week for two weeks and then once a week for four weeks. Steve asks that he receive a call with any questions. Please advise. Best time of day caller can be reached: Any Patient advised that office/PCP has 24-48 business hours to return their call: No 36 Observed: 02/03/2025 11:10 AM Status: COMPLETED Source: [facility] MELE Crespo she aware 36 Observed: 02/03/2025 11:06 AM Status: COM PLETED Source: [facility] That's fine 36 Observed: 02/03/2025 10:35 AM Status: COMPLETED Source: [facility] Name of caller: Cherie Contact phone number: [phone] Relationship to Patient: [facility] Provider: Esperanza Cary DO Practice: [facility] Chief Complaint/Reason for Call: Cherie is requesting for Dr Cary to follow care/give orders for skilled nurse, occupational and physical therapy, and home health aid. Please advise. Best time of day caller can be reached: any Patient advised that office/PCP has 24-48 business hours to return their call: Yes 36 Observed: 01/29/2025 12:48 PM Status: COMPLETED Source: [facility] FOLLOW UP QUESTIONS FOR MA/S W: 1. Did you get medications filled and takingthem as instructed from discharge? Yes 2. Are you following your discharge instructions from your hospital stay? Yes 3. Please confirm patient is scheduled for a follow up appointment within the above time frame. 02/12/2025 10:20 36 Observed: 01/28/2025 4:20 PM Status: COMP LETED Source: [facility] 02/12 @ 1020 36 Observed: 01/28/2025 3:55 PM Status: COMPLETED Source: [employer] Name of caller: Xiomara Contact phone number: [phone] Relationship to Patient: Nadia Hui Provider: Dr. Cary Practice: [facility] Chief Complaint/Reason for Call: Xiomara called in requesting to get a transitional care appointment scheduled for Patient's admission from 12/05 and states Patient is expected to discharge on 02/04 and it is recommended Patient is seen within 2 weeks. Xiomara was advised the first opening with Dr. Cary was not until 03/26 and Xiomara would like to see if there is any way Patient can be seen within this timeframe. Please advise. Best time of day caller can be reached: Any Patient advised that office/PCP has 24-48 business hours to return their call: No 36 Observed: 12/29/2024 8:01 AM Status: COMP LETED Source: [employer] Dose reduced 36 Observed: 12/10/2024 11:57 AM Status: COMPLETED Source: [employer] Medication name: alendronate (Fosamax) 70 MG tablet Medication dosage: 70 mg (Miligrams Monthly quantity needed: 12 How many day supply requestin days Medication route: oral (PO) Medication administration time(s): weekly If taking medication PRN, reason for taking medication: N/A If this is a controlled substance do you receive this or any other controlled medication from any other doctor or facility: N/A Ordering provider: Luis Daniel Date of last office visit: 11/18/24 Date of next office visit: 05/20/25 Date of last refill: (see medication tab): 12/31/23 Updated/Validated preferred pharmacy: Yes Patient instructed to contact the pharmacy prior to picking up the medication: Yes 36 Observed: 12/01/2024 12:54 PM Status: COMPLETED Source: [facility] ----- Message from TRICE Macias CNP sent at 12/01/2024 12:52 PM EDT ----- Please call patient with results. She has not read her My Chart message. Thanks. Yonis, your heart monitor looks good. You were normal rhythm, with some early or extra beats. There were no concerning arrhythmias. Please continue your current medications (including the lower dose of carvedilol) and follow-up as scheduled. Please call the office with questions or concerns. Thank you. Franchesca Escobar APRN-DIRECTOR [employer] I called and rel;ayed the above note to Yonis. Yonis said she saw Dr. Martins on 11/26/24 and he reviewed the monitor with her. PROGRESS NOTE Observed: 11/27/2024 9:50 AM Status: COMPLETED Source: [facility] Abnormal EKG followed by Hol ter in 2024. Findings c/w asymptomatic WAP. Coreg decreased due to bradycardia. -Ok to continue coreg 12.5 mg bid; at least yearly EKG. -Given this rhythm and risk factors, she is at risk for Afib, but she has not had that documented. PROGRESS NOTE Observed: 11/26/2024 10:02 AM Status: COMPLETED Source: [facility] Target LDL less than 70. LDL 4 (03/2024). - Cont atorvastatin 80 mg po daily - Recommend yearly lipid profile. PROGRESS NOTE Observed: 11/26/2024 10:01 AM Status: COMPLETED Source: [facility] [employer] [facility] Stable. Target <130/80 mmHg. 03/2024 BMP stable. -Cont Lotensin -continue Coreg 25 mg po BID - continue spironolactone 25 mg po daily - continue lasix 20 mg po daily PROGRESS NOTE Observed: 11/26/2024 10:01 AM Status: COMPLETED Source: [facility] HFpEF. EF 62% per echo 2020. Stage C, Class II. No current HF symptoms and euvolemic on physical exam. -continue Jardiance 10 mg po daily - continue lasix 20 mg po BID - continue spironolactone 25 mg po daily - may take an extra lasix as needed for HF symptoms PROGRESS NOTE Observed: 11/26/2024 10:00 AM Status: COMPLETED Source: [facility] [employer] Mild ischemia in anterior wa ll in 2017. Probable coronary artery disease. She is on chronic coronary disease management medications. Due to her Crohn's and malabsorption, she has historically not been a good candidate for dual antiplatelet therapy. But her Crohn's has been inactive for years. She has not had an interest in invasive cardiac evaluation due to her risk of bleeding. No current anginal complaints. - Continue aspirin 81 mg po daily - Continue atorvastatin 80 mg po daily - If she develops symptoms not able to be treated with antianginals, left heart cath will be strongly recommended. And we will need a risk assessment from GI about potential tolerance of DAPT. 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 If needed DAPT, would likely stop this agent given increased bleeding risk. PROGRESS NOTE Observed: 11/26/2024 9:15 AM Status: COMPLETED Source: [facility] [place] [address] [facility] [address] [facility] [address] Dept: [phone] Dept Visit type: Established : 1955 Reason for Visit: Follow-up (3 weeks) Assessment and Plan 1. Chronic heart failure with preserved ejection fraction (HCC) Assessment & Plan: HFpEF. EF 62% per echo 2020. Stage C, Class II. No current HF symptoms and euvolemic on physical exam. -continue Jardiance 10 mg po daily - continue lasix 20 mg po BID - continue spironolactone 25 mg po daily - may take an extra lasix as needed for HF symptoms Orders: - carvedilol (Coreg) 12.5 MG tablet; Take 1 tablet (12.5 mg) by mouth 2 times daily (with meals)., Starting Sun11/26/2024, Normal 2. Resistant hypertension Assessment & Plan: Stable. Target <130/80 mmHg. 03/2024 BMP stable. -Cont Lotensin -continue Coreg 25 mg po BID - continue spironolactone 25 mg po daily - continue lasix 20 mg po daily Orders: - carvedilol (Coreg) 12.5 MG tablet; Take 1 tablet (12.5 mg) by mouth 2 times daily (with meals)., Starting 11/26/2024, Normal 3. Abnormal nuclear stress test Assessment & Plan: Mild ischemia in anterior wall in 2017. Probable coronary artery disease. She is on chronic coronary disease management medications. Due to her Crohn's and malabsorption, she has historically not been a good candidate for dual antiplatelet therapy. But her Crohn's has been inactive for years. She has not had an interest in invasive cardiac evaluation due to her risk of bleeding. No current anginal complaints. - Continue aspirin 81 mg po daily - Continue atorvastatin 80 mg po daily - If she develops symptoms not able to be treated with antianginals, left heart cath will be strongly recommended. And we will need a risk assessment from GI about potential tolerance of DAPT. 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 If needed DAPT, would likely stop this agent given increased bleeding risk. Orders: - nitroglycerin (Nitrostat) 0.4 MG SL tablet; Place 1 tablet (0.4 mg) under the tongue as needed for chest pain., Starting 11/26/2024, Normal 4. Wandering atrial pacemaker Assessment & Plan: Abnormal EKG followed by Holter in 2024. Findings c/w asymptomatic WAP. Coreg decreased due to bradycardia. -Ok to continue coreg 12.5 mg bid; at least yearly EKG. -Given this rhythm and risk factors, she is at risk for Afib, but she has not had that documented. 5. Mixed hyperlipidemia Assessment & Plan: Target LDL less than 70. LDL 4 (03/2024). - Cont atorvastatin 80 mg po daily - Recommend yearly lipid profile. Follow up in about 5 months (around 04/28/2025) for CRISTOPHER. Subjective Summary of prior history, copied from prior notes and lightly edited: History of heart failure with preserved ejection fraction. She has multiple risk factors that could trigger an exacerbation. She has a history of abnormal stress testing 2016 suggesting underlying CAD but this has not been defined anatomically. She also has substantial debility due to orthopedic issues. Hx gastric ulcer that followup EGD in 2015 showed was healed. She had a colonoscopy January 2019 which showed her Crohn's appears to be in remission, and clipped 3 polyps (repeat in 3 yrs). Repeat 2023 showed some diverticuli and a polyp but otherwise quiescent. Her mother lived with her, 01/2023 at 91. Had significant dementia. She states she moved to [place] 2023 and was considering switching to [place] [facility]ology. Continues to follow with [facility]. 2024 due to arrhythmia/bradycardia concerns, but no high risk symptoms, Coreg dose decreased, Holter obtained showed WAP, no Afib, no findings of concerning heart block. Currently: She denies chest pain, PND, orthopnea, palpitations or syncope. She admits to occasional dizziness when doing her exercises. She has some mild edema in her left lower leg. She notes occasional dyspnea on exertion. D/w her the holter shows wandering atrial pacemaker. HR is variable. By palpation in the 60's. Holter shows avg rate 69 bpm on her current coreg 12.5 mg bid. Walking with walker. Tries to do chair exercises. D/w her she does not have Afib and there would be a risk of bleeding with OAC if that was needed at some point. We also discussed her hx of presumed CAD based on the abnormal stress test in 2017. At that time there was concern for GIB as she had had a gastric ulcer and since chest symptoms were controlled, she elected not to do LHC as PCI would require DAPT and she was not interested in anything that would cause GIB with her hx of Crohn's disease. Given her limited functional status she is not a good candidate for CABG (should that be offered). She has maintained this plan for an extended period of time and is concerned about risks though, from our understanding, her Crohn's disease is quiescent. Of note, she has been losing weight slowly for years. Mostly, this has been due to decreased appetite and less calories. See graph in body of note. 250 lbs in 2020, now down to 209 lbs (BMI 37). From a cardiac perspective this is ok if this is healthy weight loss as less weight may improve her activity level and decrease angina. She is still morbidly obese with BMI >35 and significant risk factors. Even if she lost another 50 lbs her BMI would be 26. Yonis Fuentes Review of Systems Constitutional: Positive for fatigue. Negative for activity change, chills, diaphoresis and fever. HENT: Negative for nosebleeds and trouble swallowing. Eyes: Positive for visual disturbance (worsening). Negative for discharge. Respiratory: Positive for apnea (CPAP) and shortness of breath (exertional). Negative for cough, chest tightness and wheezing. Cardiovascular: Negative for chest pain, palpitations and leg swelling. Gastrointestinal: Positive for abdominal pain (RLQ). Negative for abdominal distention, blood in stool, diarrhea, nausea and vomiting. Endocrine: Negative for cold intolerance and heat intolerance. Genitourinary: Negative for hematuria. Musculoskeletal: Positive for gait problem (walker). Negative for myalgias. Skin: Positive for rash (BLE). Negative for color change. Neurological: Positive for dizziness (occasional), weakness and numbness (diabetic neuropathy). Negative for seizures, syncope, facial asymmetry, speech difficulty, light-headedness and headaches. Hematological: Does not bruise/bleed easily. Psychiatric/Behavioral: Negative for dysphoric mood. No Known Allergies Current Outpatient Medications: Accu-Chek Berenice Plus test strip, Use as instructed, Disp: 200 strip, Rfl: 3 adalimumab (Humira) 40 MG/0.4ML Prefilled Syringe Kit prefilled syringe, Inject 40 mg under the skin., Disp: , Rfl: alendronate (Fosamax) 70 MG tablet, Take 1 tablet (70 mg) by mouth every 7 days., Disp: 12 tablet, Rfl: 3 aspirin 81 MG EC tablet, Take 1 tablet by mouth in the morning., Disp: , Rfl: atorvastatin (Lipitor) 80 MG tablet, Take 1 tablet (80 mg) by mouth daily., Disp: 90 tablet, Rfl: 3 benazepril-hydroCHLOROthiazide (Lotensin HCT) 20-12.5 MG tablet, Take 2 tablets by mouth daily., Disp: 180 tablet, Rfl: 0 cilostazol (Pletal) 100 MG tablet, Take 100 mg by mouth 2 times daily., Disp: , Rfl: colestipol (Colestid) 1 g tablet, TAKE ONE TABLET BY MOUTH 3 TIMES DAILY DIRECTED, Disp: , Rfl: Continuous Blood Gluc Sensor (FreeStyle Jenni 3 Sensor) misc, every 14 (fourteen) days., Disp: 6 each, Rfl: 1 empagliflozin (Jardiance) 10 MG, TAKE 1 TABLET BY MOUTH DAILY, Disp: 90 tablet, Rfl: 0 fexofenadine (Ely) 180 MG tablet, Take 1 tablet by mouth in the morning., Disp: , Rfl: furosemide (Lasix) 20 MG tablet, Take 1 tablet (20 mg) by mouth 2 times daily., Disp: 180 tablet, Rfl: 3 gabapentin (Neurontin) 300 MG capsule, TAKE ONE CAPSULE BY MOUTH 3 TIMES DAILY, Disp: , Rfl: insulin glargine (Lantus) 100 UNIT/ML injection, Inject 70 Units under the skin every evening., Disp: 40 mL, Rfl: 3 insulin syringe-needle U-100 30G X 1/2 1 ML misc, Use to inject 1-4 times daily as directed., Disp: 100 each, Rfl: 3 metFORMIN (Glucophage) 1000 MG tablet, Take 1 tablet (1,000 mg) by mouth 2 times daily (with meals)., Disp: 180 tablet, Rfl: 3 pantoprazole (ProtoNix) 40 MG EC tablet, Take 1 tablet by mouth in the morning and 1 tablet before bedtime., Disp: , Rfl: potassium chloride CR (Klor-Con M20) 20 MEQ ER tablet, Take 1 tablet by mouth as needed., Disp: , Rfl: spironolactone (Aldactone) 25 MG tablet, Take 1 tablet (25 mg) by mouth every morning., Disp: 90 tablet, Rfl: 3 traMADol (Ultram) 50 MG tablet, Take 50 mg by mouth every 8 hours as needed., Disp: , Rfl: carvedilol (Coreg) 12.5 MG tablet, Take 1 tablet (12.5 mg) by mouth 2 times daily (with meals)., Disp: 180 tablet, Rfl: 3 nitroglycerin (Nitrostat) 0.4 MG SL tablet, Place 1 tablet (0.4 mg) under the tongue as needed for chest pain., Disp: 30 tablet, Rfl: 3 Past Medical History: Diagnosis Date CHF (congestive heart failure) (HCC) Crohn disease (HCC) DM (diabetes mellitus) (HCC) Edema Gastric ulcer GERD (gastroesophageal reflux disease) HH (hiatus hernia) HTN (hypertension) Hyperlipidemia Iron deficiency anemia due to dietary causes Obesity REILLY (obstructive sleep apnea) Osteoarthritis Sciatica Shortness of breath Sleep apnea Thyroid disease keven thyroiditis Social History Tobacco Use Smoking status: Never Smokeless tobacco: Never Substance Use Topics Alcohol use: No Past Surgical History: Procedure Laterality Date APPENDECTOMY BACK SURGERY CHOLECYSTECTOMY COLONOSCOPY 08/09/2020 EGD Goyo AVILA COLONOSCOPY 08/09/2020 polyp COLONOSCOPY 01/29/2019 polyps COLONOSCOPY 09/2014 COLONOSCOPY W/ BIOPSIES 07/21/2024 Performed by Tatiana Nance MD at [facility] END[facility] COLONOSCOPY W/ BIOPSIES AND POLYPECTOMY N/A 07/21/2024 Performed by Tatiana Nance MD at [facility] END[facility] LAMINECTOMY NASAL SINUS SURGERY NERVE BLOCK (HISTORICAL) UPPER GASTROINTESTINAL ENDOSCOPY 04/22/15 UPPER GASTROINTESTINAL ENDOSCOPY 08/10/15 UPPER GASTROINTESTINAL ENDOSCOPY 06/18/15 WISDOM TOOTH EXTRACTION Family History Problem Relation Name Age of Onset Breast cancer Mother 46 Heart disease Mother Heart disease Father Heart disease Maternal Grandmother Heart disease Maternal Grandfather Breast cancer Paternal Grandmother 60 Heart disease Paternal Grandmother Kidney cancer Paternal Grandmother 65 Heart disease Paternal Grandfather Liver cancer Mother's Sister 65 Colon cancer Maternal Cousin 29 Colon cancer Maternal Cousin 58 Colon cancer Maternal Cousin Other ([id number]) Other No FMH of MM Breast cancer Mother's Brother 65 Objective Vitals: 11/26/24 0911 BP: 122/60 BP Location: Right arm Patient Position: Sitting BP Cuff Size: Adult Pulse: 76 SpO2: 96% Weight: 209 lb (94.8 kg) Height: 5' 3 (1.6 m) Physical Exam Vitals reviewed. Constitutional: General: She is not in acute distress. Appearance: She is well-developed. She is obese. Neck: Vascular: No JVD. Cardiovascular: Rate and Rhythm: Normal rate and regular rhythm. Heart sounds: Normal heart sounds. No murmur heard. Pulmonary: Effort: Pulmonary effort is normal. Breath sounds: Normal breath sounds. Abdominal: General: Bowel sounds are normal. Palpations: Abdomen is soft. Neurological: Mental Status: She is alert. Psychiatric: Attention and Perception: Attention normal. Behavior: Behavior is cooperative. Data Reviewed and Summarized No results found for: EFBP, PLVEF, LVEFPHYS, LVEF2D, EF Review of tests/labs done/ordered within my specialty: EKG in office: Review of tests/labs done/ordered outside my specialty: Independent interpretation of tests: Thai Martins MD I, Thai Martins MD, provided Yonis Fuentes ongoing care for their single serious or complex condition described above. I assume responsibility for the patient's ongoing medical care for this condition(s). OFFICE VISIT Observed: 11/26/2024 9:15 AM Status: COMPLETED Source: [facility] [id number] Yonis Fuentes 01/1955 F Date Provider Department Center 11/26/2024 [id number] MARTINS [facility] None Family History Problem Relation Age of Onset Breast cancer Mother 46 Heart disease Mother Heart disease Father Heart disease Maternal Grandmother Heart disease Maternal Grandfather Breast cancer Paternal Grandmother 60 Heart disease Paternal Grandmother Kidney cancer Paternal Grandmother 65 Heart disease Paternal Grandfather Liver cancer Mother's Sister 65 Colon cancer Maternal Cousin 29 Colon cancer Maternal Cousin 58 Colon cancer Maternal Cousin Other Other Comments: No FMH of MM Breast cancer Mother's Brother 65 Family Status - Relation Status Age at Mother Father Maternal Grandmother Maternal Grandfather Paternal Grandmother Paternal Grandfather Mother's Sister Maternal Cousin Maternal Cousin Alive Maternal Cousin Alive Other Mother's Brother Alive Level of Service:67957 ME OFFICE/OUTPATIENT ESTABLISHED MOD MDM 30 MIN Reason for Visit and Comments: Follow-up [549332] - 3 weeks PROGRESS NOTE Observed: 11/25/2024 11:20 AM Status: COMPLETED Source: [facility] - [address] [facility] [id number] Visit type: Established Patient Reason for Visit: Follow-up Assessment and Plan Diagnoses and all orders for this visit: Class 3 severe obesity due to excess calories with serious comorbidity and body mass index (BMI) of 40.0 to 44.9 in adult Chronic, stable, encouraged continued weight loss efforts Type 2 diabetes mellitus with diabetic polyneuropathy, with long-term current use of insulin (HCC) - insulin glargine (Lantus) 100 UNIT/ML injection; Inject 70 Units under the skin every evening. - AMB POC HEMOGLOBIN A1C Chronic, stable, continue current management plan Crohn's disease of both small and large intestine without complications (HCC) Chronic, stable, continue current management plan with Humira and follow up with GI Other orders - triamcinolone (Kenalog) 0.5 % cream; Apply topically 3 times daily. No follow-ups on file. Subjective HPI BS are well controlled - reviewed log with Yonis She is seeing cardiology and will be having workup done for possible a fib. Had a heart monitor She is feeling well Walks with a walker Utd on eye exam Seeing GI for crohn's Review of Systems Constitutional: Negative for appetite change, chills, fatigue and fever. Respiratory: Negative for cough, shortness of breath and wheezing. Cardiovascular: Negative for chest pain, palpitations and leg swelling. Genitourinary: Negative. No Known Allergies Current Outpatient Medications: Accu-Chek Berenice Plus test strip, Use as instructed, Disp: 200 strip, Rfl: 3 adalimumab (Humira) 40 MG/0.4ML Prefilled Syringe Kit prefilled syringe, Inject 40 mg under the skin., Disp: , Rfl: alendronate (Fosamax) 70 MG tablet, Take 1 tablet (70 mg) by mouth every 7 days., Disp: 12 tablet, Rfl: 3 aspirin 81 MG EC tablet, Take 1 tablet by mouth in the morning., Disp: , Rfl: atorvastatin (Lipitor) 80 MG tablet, Take 1 tablet (80 mg) by mouth daily., Disp: 90 tablet, Rfl: 3 benazepril-hydroCHLOROthiazide (Lotensin HCT) 20-12.5 MG tablet, Take 2 tablets by mouth daily., Disp: 180 tablet, Rfl: 0 carvedilol (Coreg) 25 MG tablet, Take 0.5 tablets (12.5 mg) by mouth 2 times daily (with meals)., Disp: , Rfl: cilostazol (Pletal) 100 MG tablet, Take 100 mg by mouth 2 times daily., Disp: , Rfl: colestipol (Colestid) 1 g tablet, TAKE ONE TABLET BY MOUTH 3 TIMES DAILY DIRECTED, Disp: , Rfl: Continuous Blood Gluc Sensor (FreeStyle Jenni 3 Sensor) misc, every 14 (fourteen) days., Disp: 6 each, Rfl: 1 empagliflozin (Jardiance) 10 MG, TAKE 1 TABLET BY MOUTH DAILY, Disp: 90 tablet, Rfl: 0 fexofenadine (Ely) 180 MG tablet, Take 1 tablet by mouth in the morning., Disp: , Rfl: furosemide (Lasix) 20 MG tablet, Take 1 tablet (20 mg) by mouth 2 times daily., Disp: 180 tablet, Rfl: 3 gabapentin (Neurontin) 300 MG capsule, TAKE ONE CAPSULE BY MOUTH 3 TIMES DAILY, Disp: , Rfl: insulin syringe-needle U-100 30G X 1/2 1 ML misc, Use to inject 1-4 times daily as directed., Disp: 100 each, Rfl: 3 metFORMIN (Glucophage) 1000 MG tablet, Take 1 tablet (1,000 mg) by mouth 2 times daily (with meals)., Disp: 180 tablet, Rfl: 3 nitroglycerin (Nitrostat) 0.4 MG SL tablet, Place 1 tablet (0.4 mg) under the tongue as needed for chest pain., Disp: 30 tablet, Rfl: 3 pantoprazole (ProtoNix) 40 MG EC tablet, Take 1 tablet by mouth in the morning and 1 tablet before bedtime., Disp: , Rfl: potassium chloride CR (Klor-Con M20) 20 MEQ ER tablet, Take 1 tablet by mouth as needed., Disp: , Rfl: spironolactone (Aldactone) 25 MG tablet, Take 1 tablet (25 mg) by mouth every morning., Disp: 90 tablet, Rfl: 3 traMADol (Ultram) 50 MG tablet, Take 50 mg by mouth every 8 hours as needed., Disp: , Rfl: insulin glargine (Lantus) 100 UNIT/ML injection, Inject 70 Units under the skin every evening., Disp: 40 mL, Rfl: 3 triamcinolone (Kenalog) 0.5 % cream, Apply topically 3 times daily., Disp: 45 g, Rfl: 0 Past Medical History: Diagnosis Date CHF (congestive heart failure) (HCC) Crohn disease (HCC) DM (diabetes mellitus) (HCC) Edema Gastric ulcer GERD (gastroesophageal reflux disease) HH (hiatus hernia) HTN (hypertension) Hyperlipidemia Iron deficiency anemia due to dietary causes Obesity REILLY (obstructive sleep apnea) Osteoarthritis Sciatica Shortness of breath Sleep apnea Thyroid disease keven thyroiditis Social History Socioeconomic History Marital status: Single Tobacco Use Smoking status: Never Smokeless tobacco: Never Vaping Use Vaping status: Never Used Substance and Sexual Activity Alcohol use: No Drug use: No Social History Narrative No Tb, , blood. +Dog Social Drivers of Health Physical Activity: Inactive (04/10/2022) Received from [facility] Exercise Vital Sign Days of Exercise per Week: 0 days Minutes of Exercise per Session: 0 min Past Surgical History: Procedure Laterality Date APPENDECTOMY BACK SURGERY CHOLECYSTECTOMY COLONOSCOPY 08/09/2020 LOUISA Nance SHB COLONOSCOPY 08/09/2020 polyp COLONOSCOPY 01/29/2019 polyps COLONOSCOPY 09/2014 COLONOSCOPY W/ BIOPSIES 07/21/2024 Performed by Tatiana Nance MD at [facility] COLONOSCOPY W/ BIOPSIES AND POLYPECTOMY N/A 07/21/2024 Performed by Tatiana Nance MD at [facility] LAMINECTOMY NASAL SINUS SURGERY NERVE BLOCK (HISTORICAL) UPPER GASTROINTESTINAL ENDOSCOPY 04/22/15 UPPER GASTROINTESTINAL ENDOSCOPY 08/10/15 UPPER GASTROINTESTINAL ENDOSCOPY 06/18/15 WISDOM TOOTH EXTRACTION Past Surgical History: Procedure Laterality Date APPENDECTOMY BACK SURGERY CHOLECYSTECTOMY COLONOSCOPY 08/09/2020 LOUISA AVILA COLONOSCOPY 08/09/2020 polyp COLONOSCOPY 01/29/2019 polyps COLONOSCOPY 09/2014 COLONOSCOPY W/ BIOPSIES 07/21/2024 Performed by Tatiana Nance MD at [facility] COLONOSCOPY W/ BIOPSIES AND POLYPECTOMY N/A 07/21/2024 Performed by Tatiana Nance MD at [facility] LAMINECTOMY NASAL SINUS SURGERY NERVE BLOCK (HISTORICAL) UPPER GASTROINTESTINAL ENDOSCOPY 04/22/15 UPPER GASTROINTESTINAL ENDOSCOPY 08/10/15 UPPER GASTROINTESTINAL ENDOSCOPY 06/18/15 WISDOM TOOTH EXTRACTION Family History Problem Relation Name Age of Onset Breast cancer Mother 46 Heart disease Mother Heart disease Father Heart disease Maternal Grandmother Heart disease Maternal Grandfather Breast cancer Paternal Grandmother 60 Heart disease Paternal Grandmother Kidney cancer Paternal Grandmother 65 Heart disease Paternal Grandfather Liver cancer Mother's Sister 65 Colon cancer Maternal Cousin 29 Colon cancer Maternal Cousin 58 Colon cancer Maternal Cousin Other (47012) Other No FMH of MM Breast cancer Mother's Brother 65 Objective BP 128/86 Pulse 66 Temp 36.1 ?C (97 ?F) Ht 5' 3 (1.6 m) Wt 209 lb (94.8 kg) SpO2 98% BMI 37.02 kg/m? Physical Exam Vitals and nursing note reviewed. Constitutional: General: She is not in acute distress. Appearance: Normal appearance. She is obese. She is not ill-appearing. HENT: Head: Normocephalic and atraumatic. Eyes: Conjunctiva/sclera: Conjunctivae normal. Cardiovascular: Rate and Rhythm: Normal rate and regular rhythm. Pulses: Normal pulses. Heart sounds: Normal heart sounds. No murmur heard. No gallop. Pulmonary: Effort: Pulmonary effort is normal. No respiratory distress. Breath sounds: Normal breath sounds. No stridor. No wheezing, rhonchi or rales. Chest: Chest wall: No tenderness. Musculoskeletal: Cervical back: Neck supple. Right lower leg: No edema. Left lower leg: No edema. Neurological: General: No focal deficit present. Mental Status: She is alert and oriented to person, place, and time. Gait: Gait abnormal. Psychiatric: Mood and Affect: Mood normal. Behavior: Behavior normal. Thought Content: Thought content normal. Judgment: Judgment normal. Data Reviewed POCT: Labs: Imaging/Testing: Chart Clean Up: Medications Discontinued During This Encounter Medication Reason Multiple Minerals-Vitamins (John Mag Zinc +D3) tablet Med list cleanup polycarbophil (FiberCon) 625 MG tablet Med list cleanup insulin glargine (Lantus) 100 UNIT/ML injection Reorder Esperanza Cary DO 11/26/2024 9:06 AM OFFICE VISIT Observed: 11/25/2024 11:20 AM Status: COMPLETED Source: [facility] [id number] Yonis Fuentes 01/1955 F Date Provider Department Center 11/25/2024 ESPERANZA BEDOLLA [facility] Family History Problem Relation Age of Onset Breast cancer Mother 46 Heart disease Mother Heart disease Father Heart disease Maternal Grandmother Heart disease Maternal Grandfather Breast cancer Paternal Grandmother 60 Heart disease Paternal Grandmother Kidney cancer Paternal Grandmother 65 Heart disease Paternal Grandfather Liver cancer Mother's Sister 65 Colon cancer Maternal Cousin 29 Colon cancer Maternal Cousin 58 Colon cancer Maternal Cousin Other Other Comments: No FMH of MM Breast cancer Mother's Brother 65 Family Status - Relation Status Age at Mother Father Maternal Grandmother Maternal Grandfather Paternal Grandmother Paternal Grandfather Mother's Sister Maternal Cousin Maternal Cousin Alive Maternal Cousin Alive Other Mother's Brother Alive Level of Service:88740 ME OFFICE/OUTPATIENT ESTABLISHED MOD MDM 30 MIN Reason for Visit and Comments: Follow-up [[id number]] PROGRESS NOTE Observed: 11/05/2024 11:24 AM Status: COMPLETED Source: [facility] EKG in the office with basel ine artifact, but read as possible A-fib. It was a regular and I could make out some P waves in lead V1. We attempted to redo the EKG and while she was hooked up to the machine she appeared to have an episode of junctional rhythm and possible Wenckebach. She does have occasional episodes of dizziness while she is doing her exercises. I will order a Holter monitor for further evaluation. If we document A-fib, she would need full oral anticoagulation. PROGRESS NOTE Observed: 11/05/2024 10:30 AM Status: COMPLETED Source: [facility] >>ASSESSMENT AND PLAN FOR AB NORMAL EKG WRITTEN ON 11/05/2024 11:24 AM BY DIANNE ESCOBAR APRN - DIRECTOR [employer] EKG in the office with baseline artifact, but read as possible A-fib. It was a regular and I could make out some P waves in lead V1. We attempted to redo the EKG and while she was hooked up to the machine she appeared to have an episode of junctional rhythm and possible Wenckebach. She does have occasional episodes of dizziness while she is doing her exercises. I will order a Holter monitor for further evaluation. If we document A-fib, she would need full oral anticoagulation. 29 Observed: 11/05/2024 10:30 AM Status: COMPLETED Source: [facility] Addended by: GUERDA ESCOBAR on: 11/05/2024 03:49 PM Modules accepted: Orders PROGRESS NOTE Observed: 11/05/2024 10:30 AM Status: COMPLETED Source: [facility] [place] [address] [place] [address] [place] [id number] Dept: [phone] Dept Visit type: Established : 1955 Reason for Visit: 6 Month Follow-up and Congestive Heart Failure Assessment and Plan 1. Chronic heart failure with preserved ejection fraction (HCC) Assessment & Plan: HFpEF. EF 62% per echo 2020. Stage C, Class II. No current HF symptoms and euvolemic on physical exam. -continue Jardiance 10 mg po daily - continue lasix 20 mg po BID - continue spironolactone 25 mg po daily - may take an extra lasix as needed for HF symptoms Orders: - ECG 12 lead - CLINIC PERFORMED - ECG 12 lead - CLINIC PERFORMED - carvedilol (Coreg) 25 MG tablet; Take 0.5 tablets (12.5 mg) by mouth 2 times daily (with meals)., Starting 11/05/2024, No Print 2. Abnormal nuclear stress test Assessment & Plan: Mild ischemia in anterior wall in 2017. Probable coronary artery disease. She is on chronic coronary disease management medications. Due to her Crohn's and malabsorption, she is not a good candidate for dual antiplatelet therapy we will continue medical management. No current anginal complaints. - Continue aspirin 81 mg po daily - continue atorvastatin 80 mg po daily - continue coreg 25 mg po BID - If she develops symptoms not able to be treated with antianginals, left heart cath will be strongly recommended. 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 3. Resistant hypertension Assessment & Plan: Stable. Target <130/80 mmHg. 03/2024 BMP stable. -Cont Lotensin -continue Coreg 25 mg po BID - continue spironolactone 25 mg po daily - continue lasix 20 mg po daily Orders: - carvedilol (Coreg) 25 MG tablet; Take 0.5 tablets (12.5 mg) by mouth 2 times daily (with meals)., Starting 11/05/2024, No Print 4. Mixed hyperlipidemia Assessment & Plan: Target LDL less than 70. LDL 4 (03/2024). - Cont atorvastatin 80 mg po daily - Recommend yearly lipid profile. 5. Dizziness - Cardiac holter monitor (24 hours) 6. Abnormal EKG Assessment & Plan: EKG in the office with baseline artifact, but read as possible A-fib. It was a regular and I could make out some P waves in lead V1. We attempted to redo the EKG and while she was hooked up to the machine she appeared to have an episode of junctional rhythm and possible Wenckebach. She does have occasional episodes of dizziness while she is doing her exercises. I will order a Holter monitor for further evaluation. If we document A-fib, she would need full oral anticoagulation. Orders: - Cardiac holter monitor (24 hours) Addendum: reviewed EKG with Dr. Martins. Possible wandering pacemaker on EKG. He agrees with Holter monitor and recommended decreasing Coreg to 12.5 mg po BID. I called Yonis with recommendations. Follow up in about 3 weeks (around 11/26/2024). Subjective Summary of prior history, copied from prior notes and lightly edited: History of heart failure with preserved ejection fraction. She has multiple risk factors that could trigger an exacerbation. She has a history of abnormal stress testing. She also has substantial debility due to orthopedic issues. She had a colonoscopy January 2019 which showed her Crohn's appears to be in remission, and clipped 3 polyps (repeat in 3 yrs). Her mother lived with her, 01/2023 at 91. Had significant dementia. Last seen by Dr. Martins 06/2023 for routine follow-up. She was stable and no changes were made to her medical therapy. I saw her 01/30/2024 for follow-up when she remained stable. She states she recently moved to [place] and was considering switching to [place] [facility]. Currently: She denies chest pain, PND, orthopnea, palpitations or syncope. She admits to occasional dizziness when doing her exercises. She has some mild edema in her left lower leg. She notes occasional dyspnea on exertion. Her weight is down 5 pounds from her last office visit. Initial EKG in the office was read as A-fib, but I can make out some P waves. We tried multiple attempts at getting a better quality EKG, but it was difficult. She appeared to have some junctional rhythm and possible Wenchebach while she was hooked up to the machine. I will order a Holter monitor for further evaluation. Yonis Fuentes Review of Systems Constitutional: Negative for activity change, chills, diaphoresis, fatigue and fever. HENT: Negative for nosebleeds and trouble swallowing. Eyes: Negative for visual disturbance. Respiratory: Positive for shortness of breath (occasional JORDAN). Negative for apnea, cough, chest tightness and wheezing. Cardiovascular: Positive for leg swelling (mild left leg). Negative for chest pain and palpitations. Gastrointestinal: Positive for abdominal pain (from Crohns) and diarrhea. Negative for abdominal distention, blood in stool, nausea and vomiting. Genitourinary: Negative for hematuria. Musculoskeletal: Positive for gait problem (walker). Negative for myalgias. Skin: Negative for color change and rash. Neurological: Positive for dizziness (occasional) and numbness (hands and feet, diabetic). Negative for syncope, weakness and light-headedness. Hematological: Does not bruise/bleed easily. Psychiatric/Behavioral: Negative for dysphoric mood. No Known Allergies Current Outpatient Medications: Accu-Chek Berenice Plus test strip, Use as instructed, Disp: 200 strip, Rfl: 3 adalimumab (Humira) 40 MG/0.4ML Prefilled Syringe Kit prefilled syringe, Inject 40 mg under the skin., Disp: , Rfl: alendronate (Fosamax) 70 MG tablet, Take 1 tablet (70 mg) by mouth every 7 days., Disp: 12 tablet, Rfl: 3 aspirin 81 MG EC tablet, Take 1 tablet by mouth in the morning., Disp: , Rfl: atorvastatin (Lipitor) 80 MG tablet, Take 1 tablet (80 mg) by mouth daily., Disp: 90 tablet, Rfl: 3 benazepril-hydroCHLOROthiazide (Lotensin HCT) 20-12.5 MG tablet, Take 2 tablets by mouth daily., Disp: 180 tablet, Rfl: 0 cilostazol (Pletal) 100 MG tablet, Take 100 mg by mouth 2 times daily., Disp: , Rfl: colestipol (Colestid) 1 g tablet, TAKE ONE TABLET BY MOUTH 3 TIMES DAILY DIRECTED, Disp: , Rfl: Continuous Blood Gluc Sensor (FreeStyle Jenni 3 Sensor) [facility], every 14 (fourteen) days., Disp: 6 each, Rfl: 1 empagliflozin (Jardiance) 10 MG, TAKE 1 TABLET BY MOUTH DAILY, Disp: 90 tablet, Rfl: 0 fexofenadine (Ely) 180 MG tablet, Take 1 tablet by mouth in the morning., Disp: , Rfl: furosemide (Lasix) 20 MG tablet, Take 1 tablet (20 mg) by mouth 2 times daily., Disp: 180 tablet, Rfl: 3 gabapentin (Neurontin) 300 MG capsule, TAKE ONE CAPSULE BY MOUTH 3 TIMES DAILY, Disp: , Rfl: insulin glargine (Lantus) 100 UNIT/ML injection, Inject 70 Units under the skin every evening., Disp: 40 mL, Rfl: 3 insulin syringe-needle U-100 30G X 1/2 1 ML [facility], Use to inject 1-4 times daily as directed., Disp: 100 each, Rfl: 3 metFORMIN (Glucophage) 1000 MG tablet, Take 1 tablet (1,000 mg) by mouth 2 times daily (with meals)., Disp: 180 tablet, Rfl: 3 Multiple Minerals-Vitamins (John Mag Zinc +D3) tablet, Take 1 tablet by mouth daily., Disp: , Rfl: nitroglycerin (Nitrostat) 0.4 MG SL tablet, Place 1 tablet (0.4 mg) under the tongue as needed for chest pain., Disp: 30 tablet, Rfl: 3 pantoprazole (ProtoNix) 40 MG EC tablet, Take 1 tablet by mouth in the morning and 1 tablet before bedtime., Disp: , Rfl: polycarbophil (FiberCon) 625 MG tablet, Every 24 hours., Disp: , Rfl: potassium chloride CR (Klor-Con M20) 20 MEQ ER tablet, Take 1 tablet by mouth as needed., Disp: , Rfl: spironolactone (Aldactone) 25 MG tablet, Take 1 tablet (25 mg) by mouth every morning., Disp: 90 tablet, Rfl: 3 traMADol (Ultram) 50 MG tablet, Take 50 mg by mouth every 8 hours as needed., Disp: , Rfl: carvedilol (Coreg) 25 MG tablet, Take 0.5 tablets (12.5 mg) by mouth 2 times daily (with meals)., Disp: , Rfl: Past Medical History: Diagnosis Date CHF (congestive heart failure) (HCC) Crohn disease (HCC) DM (diabetes mellitus) (HCC) Edema Gastric ulcer GERD (gastroesophageal reflux disease) HH (hiatus hernia) HTN (hypertension) Hyperlipidemia Iron deficiency anemia due to dietary causes Obesity REILLY (obstructive sleep apnea) Osteoarthritis Sciatica Shortness of breath Sleep apnea Thyroid disease keven thyroiditis Social History Tobacco Use Smoking status: Never Smokeless tobacco: Never Substance Use Topics Alcohol use: No Past Surgical History: Procedure Laterality Date APPENDECTOMY BACK SURGERY CHOLECYSTECTOMY COLONOSCOPY 08/09/2020 EGD Goyo AVILA COLONOSCOPY 08/09/2020 polyp COLONOSCOPY 01/29/2019 polyps COLONOSCOPY 09/2014 COLONOSCOPY W/ BIOPSIES 07/21/2024 Performed by Tatiana Nance MD at [facility] COLONOSCOPY W/ BIOPSIES AND POLYPECTOMY N/A 07/21/2024 Performed by Tatiana Nance MD at [facility] LAMINECTOMY NASAL SINUS SURGERY NERVE BLOCK (HISTORICAL) UPPER GASTROINTESTINAL ENDOSCOPY 04/22/15 UPPER GASTROINTESTINAL ENDOSCOPY 08/10/15 UPPER GASTROINTESTINAL ENDOSCOPY 06/18/15 WISDOM TOOTH EXTRACTION Family History Problem Relation Name Age of Onset Breast cancer Mother 46 Heart disease Mother Heart disease Father Heart disease Maternal Grandmother Heart disease Maternal Grandfather Breast cancer Paternal Grandmother 60 Heart disease Paternal Grandmother Kidney cancer Paternal Grandmother 65 Heart disease Paternal Grandfather Liver cancer Mother's Sister 65 Colon cancer Maternal Cousin 29 Colon cancer Maternal Cousin 58 Colon cancer Maternal Cousin Other ([id number]) Other No FMH of MM Breast cancer Mother's Brother 65 Objective Vitals: 11/05/24 1027 BP: 134/80 BP Location: Right arm Patient Position: Sitting BP Cuff Size: Adult Pulse: 61 Resp: 15 Weight: 216 lb (98 kg) Height: 5' 3 (1.6 m) Physical Exam Vitals reviewed. Constitutional: General: She is not in acute distress. Appearance: She is well-developed. She is morbidly obese. HENT: Head: Normocephalic and atraumatic. Mouth/Throat: Mouth: Mucous membranes are moist. Pharynx: Oropharynx is clear. Eyes: General: No scleral icterus. Extraocular Movements: Extraocular movements intact. Neck: Vascular: No carotid bruit, hepatojugular reflux or JVD. Cardiovascular: Rate and Rhythm: Normal rate and regular rhythm. Heart sounds: Normal heart sounds. No murmur heard. Pulmonary: Effort: Pulmonary effort is normal. Breath sounds: Normal breath sounds. Abdominal: General: Bowel sounds are normal. Palpations: Abdomen is soft. Musculoskeletal: Right lower leg: No edema. Left lower leg: Edema (trace) present. Skin: General: Skin is warm and dry. Neurological: Mental Status: She is alert and oriented to person, place, and time. Gait: Gait abnormal (walks with walker). Psychiatric: Attention and Perception: Attention normal. Mood and Affect: Mood normal. Speech: Speech normal. Behavior: Behavior is cooperative. Cognition and Memory: Cognition normal. Data Reviewed and Summarized No results found for: EFBP, PLVEF, LVEFPHYS, LVEF2D, EF Review of tests/labs done/ordered within my specialty: EKG in office: Baseline artifact. Read as possible A-fib, but in lead V1 I can make out some P waves. While she was hooked up to the machine she appeared to have episodes of junctional rhythm and possible [place] TTE 12/2020 SUMMARY: 1. Left ventricle: Systolic function is normal by the biplane method of disks. The estimated ejection fraction is 62%. There are no regional wall motion abnormalities. 2. Right ventricle: The cavity size is mildly dilated. Systolic function is normal. Right ventricular systolic pressure is within the normal range. 3. No significant valve disease. Review of tests/labs done/ordered outside my specialty: Latest Reference Range & Units 04/04/24 09:53 04/04/24 09:55 04/04/24 10:08 SODIUM 135 - 145 mmol/L 139 139 139 POTASSIUM 3.5 - 5.1 mmol/L 3.9 3.9 3.9 CHLORIDE 98 - 107 mmol/L 102 102 102 Carbon Dioxide (CO2) 22 - 30 mmol/L 30 32 (H) 31 (H) ANION GAP 3 - 13 mmol/L 8 6 6 Urea Nitrogen (BUN) 7 - 17 mg/dL 16 15 15 Creatinine 0.52 - 1.04 mg/dL 0.47 (L) 0.48 (L) 0.49 (L) eGFR >60.0 mL/min/1.73m*2 >90.0 >90.0 >90.0 GLUCOSE 70 - 100 mg/dL 77 77 76 CALCIUM 8.4 - 10.4 mg/dL 10.0 10.1 10.1 ALKALINE PHOSPHATASE - [facility] 38 - 126 U/L 38 41 ALBUMIN - [facility] 3.5 - 5.0 g/dL 3.8 3.8 TOTAL PROTEIN 6.3 - 8.2 g/dL 6.6 6.5 AST - [facility] 15 - 46 U/L 24 24 ALT - [facility] 0 - 34 U/L 13 13 BILIRUBIN, TOTAL - [facility] 0.2 - 1.3 mg/dL 0.7 0.7 NT PRO BNP <20 - 300 pg/mL 497 (H) TRIGLYCERIDES - [facility] <150 mg/dL 126 HDL CHOLESTEROL - [facility] 40 - 60 mg/dL 59 LOW DENSITY LIPOPROTEIN 0 - <100 mg/dL 4 CHOL/HDL 1 VIT D 25-OH, TOTAL 30 - 100 ng/mL 53 VITAMIN B12 239 - 931 pg/mL 518 HEPATITIS B VIRUS SURFACE AB mIU/mL <8.0 Auto WBC 3.6 - 10.7 10*3/uL 5.7 RBC 3.80 - 5.20 10*6/uL 3.55 (L) HEMOGLOBIN 11.7 - 16.0 g/dL 13.0 HEMATOCRIT 35.0 - 47.0 % 38.1 MCV 77.0 - 99.0 fL 107.3 (H) MCH 26.0 - 34.0 pg 36.6 (H) MCHC 30.5 - 36.0 % 34.1 RDW 11.5 - 15.0 % 13.5 Platelets 140 - 440 10*3/uL 174 Mean Platelet Volume (MPV) 9.0 - 12.7 fL 11.1 Neutrophils Relative 38.0 - 82.0 % 49.4 Lymphocytes Relative 15.0 - 45.0 % 36.6 Monocytes Relative 5.0 - 13.0 % 8.8 Eosinophils Relative 0.0 - 6.0 % 4.6 Basophils Relative 0.0 - 2.0 % 0.4 Absolute Neutrophils 1.8 - 7.5 10*3/uL 2.8 ABSOLUTE LYMPHOCYTES - [facility] 1.0 - 4.3 10*3/uL 2.1 Monocytes Absolute 0.0 - 0.9 10*3/uL 0.5 Eosinophils Absolute 0.0 - 0.5 10*3/uL 0.3 Basophils Absolute 0.0 - 0.2 10*3/uL 0.0 nRBC 0.0 - 2.0 /100 WBCs 0.0 HEMOGLOBIN A1C - [facility] <5.7 % 6.3 (H) C REACTIVE PROTEIN <10.0 mg/L <5.0 Quantiferon - TB Gold Test Negative Negative HEPATITIS B VIRUS SURFACE AG Not Detected Not Detected HEP B CORE AB,TOTAL Negative Negative MICROALBUMIN, URINE 0.0 - 29.9 mg/L <6.0 CREATININE, URINE No Range mg/dL 53.0 MICROALBUMIN/CREATININE RATIO COMMENT ONLY CHOLESTEROL <200 mg/dL 88 ESTIMATED AVERAGE GLUCOSE mg/dL 134 Immature Grans Absolute <0.1 10*3/uL 0.0 Immature Grans % 0.0 - 2.0 % 0.2 MITOGEN MINUS NIL IU/mL >9.92 Nil Result IU/mL 0.08 TB1 MINUS NIL IU/mL 0.00 TB2 MINUS NIL IU/mL 0.01 (H): Data is abnormally high (L): Data is abnormally low Independent interpretation of tests: I, TRICE Meyer CNP, furnish ongoing care related to Yonis Fuentes single, serious and complex condition(s) heart failure. I assume responsibility for the patient's ongoing medical care of this condition. TRICE Meyer CNP OFFICE VISIT Observed: 11/05/2024 10:30 AM Status: COMPLETED Source: [facility] [id number] Yonis Fuentes 01/1955 F Date Provider Department Center 11/05/2024 [id number] [facility] None Family History Problem Relation Age of Onset Breast cancer Mother 46 Heart disease Mother Heart disease Father Heart disease Maternal Grandmother Heart disease Maternal Grandfather Breast cancer Paternal Grandmother 60 Heart disease Paternal Grandmother Kidney cancer Paternal Grandmother 65 Heart disease Paternal Grandfather Liver cancer Mother's Sister 65 Colon cancer Maternal Cousin 29 Colon cancer Maternal Cousin 58 Colon cancer Maternal Cousin Other Other Comments: No FMH of MM Breast cancer Mother's Brother 65 Family Status - Relation Status Age at Mother Father Maternal Grandmother Maternal Grandfather Paternal Grandmother Paternal Grandfather Mother's Sister Maternal Cousin Maternal Cousin Alive Maternal Cousin Alive Other Mother's Brother Alive Level of Service:07497 ME OFFICE/OUTPATIENT ESTABLISHED MOD MDM 30 MIN Reason for Visit and Comments: 6 Month Follow-up [671] Congestive Heart Failure [127] PROGRESS NOTE Observed: 11/05/2024 7:51 AM Status: COMPLETED Source: [facility] Target LDL less than 70. LDL 4 (03/2024). - Cont atorvastatin 80 mg po daily - Recommend yearly lipid profile. PROGRESS NOTE Observed: 11/05/2024 7:50 AM Status: COMPLETED Source: [facility] Stable. Target <130/80 mmHg. 03/2024 BMP stable. -Cont Lotensin -continue Coreg 25 mg po BID - continue spironolactone 25 mg po daily - continue lasix 20 mg po daily PROGRESS NOTE Observed: 11/05/2024 7:48 AM Status: COMPLETED Source: [facility] Mild ischemia in anterior wa ll in 2016. Probable coronary artery disease. She is on chronic coronary disease management medications. Due to her Crohn's and malabsorption, she is not a good candidate for dual antiplatelet therapy we will continue medical management. No current anginal complaints. - Continue aspirin 81 mg po daily - continue atorvastatin 80 mg po daily - continue coreg 25 mg po BID - If she develops symptoms not able to be treated with antianginals, left heart cath will be strongly recommended. 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 PROGRESS NOTE Observed: 11/05/2024 7:48 AM Status: COMPLETED Source: [facility] HFpEF. EF 62% per echo 2020. Stage C, Class II. No current HF symptoms and euvolemic on physical exam. -continue Jardiance 10 mg po daily - continue lasix 20 mg po BID - continue spironolactone 25 mg po daily - may take an extra lasix as needed for HF symptoms 36 Observed: 10/21/2024 2:57 PM Status: COMPLETED Source: [facility] Patient rescheduled for 11/05. 36 Observed: 10/21/2024 12:11 PM Status: COMPLETED Source: [facility] Received call from pharmacy requesting it be sent to them ([facility]) instead of [facility]. PROGRESS NOTE Observed: 10/17/2024 10:31 AM Status: COMPLETED Source: [facility] Left telephone message for p atient to schedule 2024 Annual Medicare Wellness visit. Please assist pt with scheduling with available provider in office. Also sending [employer] message regarding the same. 36 Observed: 10/13/2024 8:48 AM Status: COMPLETED Source: [facility] Pharmacy is calling for refi lls on Lotensin to be sent in. PROGRESS NOTE Observed: 10/01/2024 7:52 AM Status: COMPLETED Source: [facility] Target LDL less than 70. LDL 4 (03/2024). - Cont Lipitor. - Recommend yearly lipid profile. PROGRESS NOTE Observed: 10/01/2024 7:52 AM Status: COMPLETED Source: [facility] Stable. Target <130/80 mmHg. 03/2023 BMP stable. -Cont Lotensin-HCT, Coreg, spironolactone, Lasix -BMP at least yearly PROGRESS NOTE Observed: 10/01/2024 7:51 AM Status: COMPLETED Source: [facility] Mild ischemia in anterior wa ll in 2016. Probable coronary artery disease. She is on chronic coronary disease management medications. Due to her Crohn's and malabsorption, she is not a good candidate for dual antiplatelet therapy we will continue medical management. No current anginal complaints. - Continue aspirin, Lipitor, Coreg. - If she develops symptoms not able to be treated with antianginals, left heart cath will be strongly recommended. 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 PROGRESS NOTE Observed: 10/01/2024 7:50 AM Status: COMPLETED Source: [facility] HFpEF. EF 62% per echo 2020. Stage C, Class II. No current HF symptoms and euvolemic on physical exam. -continue Jardiance 10 mg po daily - continue lasix 20 mg po BID -continue spirolactone 25 mg po daily - may take an extra lasix as needed for HF symptoms ANESTHESIA NOTE Observed: 07/21/2024 9:11 AM Status: COMPLETED Source: [facility] Patient: Yonis Fuentes Procedure Summary Date: 07/21/24 Room / Location: [address] Gastroenterology Anesthesia Start: 823 Anesthesia Stop: 908 Procedure: COLONOSCOPY Diagnosis: Crohn's disease of both small and large intestine without complications (HCC) Diarrhea, unspecified Right lower quadrant pain Providers: Tatiana Nance MD Responsible Provider: Reinier Carvajal MD Anesthesia Type: TIVA ASA Status: 2 Anesthesia Type: TIVA Vitals Value Taken Time BP 114/68 07/21/24 0907 Temp 36.1 ?C (96.9 ?F) 07/21/24906 Pulse 97.2 07/21/24 0911 Resp 16 07/21/24906 SpO2 100 % 07/21/24906 Anesthesia Post Evaluation Patient location during evaluation: PACU Patient participation: complete - patient participated Level of consciousness: awake and alert Pain score: 0 Pain management: satisfactory to patient Multimodal analgesia pain management approach Airway patency: patent Two or more strategies used to mitigate risk of obstructive sleep apnea Cardiovascular status: acceptable and hemodynamically stable Respiratory status: acceptable Hydration status: acceptable No notable events documented. Anesthesia Post Evaluation I completed my handoff to the receiving clinician during which we: 1. Identified the patient 2. Identified the responsible provider 3. Reviewed the pertinent medical history 4. Discussed the surgical course 5. Reviewed intra-op anesthesia management and issues during anesthesia 6. Set expectations for post-procedure period 7. Allowed opportunity for questions and acknowledgement of understanding. [id number] Observed: 07/21/2024 9:10 AM Status: COMPLETED Source: [facility] Patient: Yonis Fuentes Procedure Summary Date: 07/21/24 Room / Location: [address] Gastroenterology Anesthesia Start: 823 Anesthesia Stop: 908 Procedure: COLONOSCOPY Diagnosis: Crohn's disease of both small and large intestine without complications (HCC) Diarrhea, unspecified Right lower quadrant pain Providers: Tatiana Nance MD Responsible Provider: Reinier Carvajal MD Anesthesia Type: TIVA ASA Status: 2 Anesthesia Type: TIVA Vitals Value Taken Time BP 114/68 07/21/24 0907 Temp 36.1 ?C (96.9 ?F) 07/21/24906 Pulse 97.2 07/21/24 0910 Resp 16 07/21/24906 SpO2 100 % 07/21/24 09 Anesthesia Post Evaluation Patient location during evaluation: PACU Patient participation: complete - patient participated Level of consciousness: awake and alert Pain management: satisfactory to patient Airway patency: patent Dental Injury: no Cardiovascular status: acceptable, blood pressure returned to baseline and hemodynamically stable Respiratory status: acceptable and spontaneous ventilation Hydration status: euvolemic Nausea/Vomiting: controlled No notable events documented. Patient can be discharged once all PACU criteria has been met. TISSUE EXAM Collected: 4 8:40 AM Status: F Source: [facility] TYPE CODE TESTS RESULT OUT OF RANGE REFERENCE UNITS PATHOLOGY 1499 LAB AP CASE REPORT Result Comment: Surgical Pat hology Case: [id number] Authorizing Provider: Tatiana Nance MD Collected: 07/21/2024 0840 Ordering Location: [facility] Endoscopy Received: 07/21/2024 1016 Pathologist: Ramiro Jacinto MD Specimens: A) - Colon, Bx at 80cm Diarrhea, Hx Crohn's B) - Colon, Bx at 70cm Diarrhea, Hx Crohn's C) - Large Intestine, Transverse Colon, Polyp X3 D) - Colon, Bx at 60cm Diarrhea, Hx Crohn's E) - Colon, Bx at 50cm Diarrhea, Hx Crohn's F) - Colon, Bx at 40cm Diarrhea, Hx Crohn's G) - Colon, Bx at 30cm Diarrhea, Hx Crohn's H) - Colon, Bx at 20cm Diarrhea, Hx Crohn's I) - Colon, Bx at 10cm Diarrhea, Hx Crohn's J) - Large Intestine, Rectum, Polyp X1 PATHOLOGY 34 LAB AP REPORT FINAL DIAGNOSIS NARRATIVE Result Comment: A. COLON AT 80 CM, BIOPSY: - UNREMARKABLE COLONIC MUCOSA B. COLON, AT 70 CM, BIOPSY: - UNREMARKABLE COLONIC MUCOSA C. COLON, TRANSVERSE, POLYP X3: - SESSILE SERRATED POLYPS/ADENOMAS/LESIONS, FRAGMENTS OF UNREMARKABLE COLONIC MUCOSA, AND FRAGMENT OF BENIGN COLONIC MUCOSA WITH A SMALL LYMPHOID AGGREGATE Comment: Negative for dysplasia. D. COLON, AT 60 CM, BIOPSY: - UNREMARKABLE COLONIC MUCOSA E. COLON, AT 50 CM, BIOPSY: - UNREMARKABLE COLONIC MUCOSA F. COLON, AT 40 CM, BIOPSY: - UNREMARKABLE COLONIC MUCOSA G. COLON, AT 30 CM, BIOPSY: - UNREMARKABLE COLONIC MUCOSA H. COLON, AT 20 CM, BIOPSY: - UNREMARKABLE COLONIC MUCOSA I. COLON, AT 10 CM, BIOPSY: - UNREMARKABLE COLONIC MUCOSA Comments (Parts A, B, D-I): Negative for microscopic colitis, appreciable inflammation, dysplasia, and granulomas. J. RECTUM, POLYP X1: - TUBULAR ADENOMA OLOGY 29 LAB AP CLINICAL INFORMATION Result Comment: Crohn's dise ase of both small and large intestine without complications (HCC) - K50.80 [ICD-10-CM] Diarrhea, unspecified - R19.7 [ICD-10-CM] Right lower quadrant pain - R10.31 [ICD-10-CM] PATHOLOGY [id number] LAB AP HISTO GROSS DESCRIPTION Result Comment: A. Received in formalin labeled colon at 80 cm are four dinh fragments 0.3 and 0.5 cm in greatest dimension. Submitted in one cassette. B. Received in formalin labeled colon at 70 cm are five dinh fragments 0.4 - 0.5 cm in greatest dimension. Submitted in one cassette. C. Received in formalin labeled transverse colon polyp x3 are multiple dinh soft tissue fragments 0.2 - 1.3 cm in greatest dimension. Submitted in one cassette. D. Received in formalin labeled colon at 60 cm are four dinh fragments 0.3 - 0.6 cm in greatest dimension. Submitted in one cassette. E. Received in formalin labeled colon at 50 cm are four dinh fragments 0.4 - 0.8 cm in greatest dimension. Submitted in one cassette. F. Received in formalin labeled colon at 40 cm are five dinh fragments 0.2 - 0.8 cm in greatest dimension. Submitted in one cassette. G. Received in formalin labeled colon at 30 cm are three dinh fragments 0.4 - 0.6 cm in greatest dimension. Submitted in one cassette. H. Received in formalin labeled colon at 20 cm are four pink-dinh fragments 0.3 - 0.6 cm in greatest dimension. Submitted in one cassette. I. Received in formalin labeled colon at 10 cm are four red-dinh fragments 0.3 - 0.5 cm in greatest dimension. Submitted in one cassette. J. Received in formalin labeled rectum polyp x1 is a 0.7 cm pink-dinh fragment accompanied by a 1 cm aggregate of green fragments of foreign-appearing plant- like debris. The specimen is submitted in one cassette. PATHOLOGY 769 LAB AP ASR DISCLAIMER Result Comment: Disclaimer: The following statement applies to all immunohistochemistry, in situ hybridization, molecular studies, and immunofluorescence testing, if performed on this case. The use of one or more reagents in the above tests is regulated as an analyte specific reagent (ASR). These tests were developed and their performance characteristics determined by the clinical laboratories of [facility]. They have not been cleared by the US Food and Drug Administration (FDA). The FDA has determined that such clearance or approval is not necessary. All immunostains were performed on paraffin embedded tissue. Appropriate positive and negative controls (where applicable) were run in parallel with the patient's specimen; these controls showed expected staining pattern, with acceptable intensity of staining. Immunohistochemical assays have not been validated on decalcified tissues. Results should be interpreted with caution given the raised possibility of false negativity on decalcified specimens. PATHOLOGY [facility]OC OUTGOING CLINICAL RESULTS EMBEDDED DOCUMENT Performed By: #### [id number] # ### Supervising Appraiser: GERI WALKER ([phone]) [facility] ([address] ANESTHESIA NOTE Observed: 07/21/2024 8:22 AM Status: COMPLETED Source: [facility] Patient: Yonis Fuentes Procedure Information Date/Time: 07/21/24 0845 Procedure: COLONOSCOPY Location: [place] [address] / [facility] Gastroenterology Providers: Tatiana Nance MD Relevant Problems Anesthesia (+) REILLY (obstructive sleep apnea) Cardio (+) Hyperlipidemia (+) Resistant hypertension Pulmonary (+) REILLY (obstructive sleep apnea) Past Medical History: Past Medical History: No date: CHF (congestive heart failure) (HCC) No date: Crohn disease (HCC) No date: DM (diabetes mellitus) (HCC) No date: Edema No date: Gastric ulcer No date: GERD (gastroesophageal reflux disease) No date: HH (hiatus hernia) No date: HTN (hypertension) No date: Hyperlipidemia No date: Iron deficiency anemia due to dietary causes No date: Obesity No date: REILLY (obstructive sleep apnea) No date: Osteoarthritis No date: Sciatica No date: Shortness of breath No date: Sleep apnea No date: Thyroid disease Comment: keven thyroiditis Past Surgical History: Past Surgical History: No date: APPENDECTOMY No date: BACK SURGERY No date: CHOLECYSTECTOMY 08/09/2020: COLONOSCOPY Comment: LOUISA AVILA 08/09/2020: COLONOSCOPY Comment: polyp 01/29/2019: COLONOSCOPY Comment: polyps 09/2014: COLONOSCOPY No date: LAMINECTOMY No date: NASAL SINUS SURGERY No date: NERVE BLOCK (HISTORICAL) 04/22/15: UPPER GASTROINTESTINAL ENDOSCOPY 08/10/15: UPPER GASTROINTESTINAL ENDOSCOPY 06/18/15: UPPER GASTROINTESTINAL ENDOSCOPY No date: WISDOM TOOTH EXTRACTION Social History: TOBACCO: reports that she has never smoked. She has never used smokeless tobacco. ETOH: reports no history of alcohol use. Social History Substance and Sexual Activity Drug Use No Family History: Family History Problem Relation Name Age of Onset Breast cancer Mother 46 Heart disease Mother Heart disease Father Heart disease Maternal Grandmother Heart disease Maternal Grandfather Breast cancer Paternal Grandmother 60 Heart disease Paternal Grandmother Kidney cancer Paternal Grandmother 65 Heart disease Paternal Grandfather Liver cancer Mother's Sister 65 Colon cancer Maternal Cousin 29 Colon cancer Maternal Cousin 58 Colon cancer Maternal Cousin Other ([id number]) Other No FMH of MM Breast cancer Mother's Brother 65 Screening: Postmenopausal Clinical information reviewed: Tobacco Allergies Meds Med Hx Surg Hx OB Status Fam Hx Soc Hx Physical Exam Airway Mallampati: II TM distance: >3 FB Neck ROM: limited Mouth Open: limited Cardiovascular - normal exam Dental Pulmonary Abdominal Anesthesia Plan patient is NPO appropriate Any family history or previous problems with anesthesia no ASA 2 TIVA Any family history or previous problems with anesthesia no The patient is not a current smoker. Anesthetic plan and risks discussed with patient. REILLY Screening Labs: Lab Results Component Value Date WBC 5.7 04/04/2024 HGB 13.0 04/04/2024 HCT 38.1 04/04/2024 MCV 107.3 (H) 04/04/2024 PLT 174 04/04/2024 Lab Results Component Value Date NA 139 04/04/2024 K 3.9 04/04/2024 CL 102 04/04/2024 CO2 31 (H) 04/04/2024 BUN 15 04/04/2024 CREATININE 0.49 (L) 04/04/2024 GLUCOSE 76 04/04/2024 CALCIUM 10.1 04/04/2024 PROT 6.5 04/04/2024 ALKPHOS 41 04/04/2024 AST 24 04/04/2024 ALT 13 04/04/2024 EGFR >90.0 04/04/2024 No echocardiogram results found for the past 14 days 07/09/23 ECG 12-LEAD 07/09/2023 9:41 AM (Final) Narrative Sinus Bradycardia -With rate variation P:QRS - 1:1, Superior P axis, Short Aaron, H Rate 55 cv = 12. Low voltage in precordial leads. -Poor R-wave progression -may be secondary to pulmonary disease consider old anterior infarct. Poor baseline with artifact ABNORMAL Signed by: Thai Martins on 07/09/2023 9:41 AM Equipment Requests: Additional Equipment Requests OP NOTE Observed: 07/21/2024 8:18 AM Status: COMPLETED Source: [facility] Name[facility] Yonis Fuentes Procedure Date: 07/21/2024 8:18 AM Gender: Female Date of : 1955 Age: 69 Admit Type: Outpatient Note Status: Finalized Endoscopist: Tatiana Nance MD, [id number] Procedure: Colonoscopy Indications: Chronic diarrhea, Crohn's disease of the small bowel and colon, personal HX colon polyps Findings: A 2 mm polyp was found in the rectum. The polyp was sessile. The polyp was removed with a cold snare. Resection and retrieval were complete. Three sessile polyps were found in the transverse colon. The polyps were 3 to 4 mm in size. These polyps were removed with a cold snare. Resection and retrieval were complete. A few small-mouthed diverticula were found in the sigmoid colon and descending colon. Non-bleeding internal hemorrhoids were found during retroflexion. The hemorrhoids were small. The terminal ileum appeared normal. Normal mucosa was found in the entire colon. Biopsies were taken with a cold forceps for histology, every 10cm from 80cm to 10cm in 4 quadrant manner. Impression: - One 2 mm polyp in the rectum, removed with a cold snare. Resected and retrieved. - Three 3 to 4 mm polyps in the transverse colon, removed with a cold snare. Resected and retrieved. - Diverticulosis in the sigmoid colon and in the descending colon. - Non-bleeding internal hemorrhoids. - The examined portion of the ileum was normal. - Normal mucosa in the entire examined colon. Biopsied. Recommendation: - Patient has a contact number available for emergencies. The signs and symptoms of potential delayed complications were discussed with the patient. Return to normal activities tomorrow. Written discharge instructions were provided to the patient. - Continue present medications. - Resume previous diet indefinitely. - Repeat colonoscopy for surveillance based on pathology results. - Return to primary care physician. Referring MD: Esperanza Cary Medicines: Propofol per Anesthesia Procedure: Pre-Anesthesia Assessment: - Prior to the procedure, a History and Physical was performed, and patient medications and allergies were reviewed. The patient's tolerance of previous anesthesia was also reviewed. The risks and benefits of the procedure and the sedation options and risks were discussed with the patient. All questions were answered, and informed consent was obtained. Prior Anticoagulants: The patient has taken Pletal (cilostazol), last dose was 7 days prior to procedure. ASA Grade Assessment: III - A patient with severe systemic disease. After reviewing the risks and benefits, the patient was deemed in satisfactory condition to undergo the procedure. - The anesthesia plan was to use monitored anesthesia care (MAC). - Immediately prior to administration of medications, the patient was re-assessed for adequacy to receive sedatives. After I obtained informed consent, the scope was passed under direct vision. Throughout the procedure, the patient's blood pressure, pulse, and oxygen saturations were monitored continuously. The Colonoscope was introduced through the anus and advanced to the terminal ileum. The colonoscopy was performed without difficulty. The patient tolerated the procedure well. The quality of the bowel preparation was good. The terminal ileum, ileocecal valve, appendiceal orifice, and rectum were photographed. Complications: No immediate complications. Procedure Code(s): --- Professional --- 83667, Colonoscopy, flexible; with removal of tumor(s), polyp(s), or other lesion(s) by snare technique 50520, 59, Colonoscopy, flexible; with biopsy, single or multiple --- Technical --- 73611, Colonoscopy, flexible; with removal of tumor(s), polyp(s), or other lesion(s) by snare technique 10672, 59, Colonoscopy, flexible; with biopsy, single or multiple Diagnosis Code(s): --- Professional --- D12.8, Benign neoplasm of rectum D12.3, Benign neoplasm of transverse colon (hepatic flexure or splenic flexure) K64.8, Other hemorrhoids K50.80, Crohn's disease of both small and large intestine without complications K57.30, Diverticulosis of large intestine without perforation or abscess without bleeding K52.9, Noninfective gastroenteritis and colitis, unspecified --- Technical --- D12.8, Benign neoplasm of rectum D12.3, Benign neoplasm of transverse colon (hepatic flexure or splenic flexure) K64.8, Other hemorrhoids K50.80, Crohn's disease of both small and large intestine without complications K57.30, Diverticulosis of large intestine without perforation or abscess without bleeding K52.9, Noninfective gastroenteritis and colitis, unspecified CPT copyright 2021 [employer]. All rights reserved. The codes documented in this report are preliminary and upon polls or surveys interviewer review may be revised to meet current compliance requirements. Attending Participation: I personally performed the entire procedure. Tatiana Nance MD 07/21/2024 9:15:08 AM This report has been signed electronically. Number of Addenda: 0 Note Initiated On: 07/21/2024 8:18 AM HISTORY AND PHYSICAL NOTE Observed: 06/30 7:52 AM Status: COMPLETED Source: [facility] GI ENDOSCOPY HISTORY AND PHY SICAL NOTE Patient: Yonis Fuentes : 1955 Primary Care Physician: Esperanza Cary DO History: The patient is a 69 y.o. female here with Crohns disease small bowel and colon, personal HX polyps Current Medications: No current facility-administered medications for this encounter. Physical Exam: BP (!) 186/87 Pulse 56 Temp (!) 35.4 ?C (95.8 ?F) (Temporal) Resp 16 Ht 5' 3 (1.6 m) Wt 211 lb (95.7 kg) SpO2 97% BMI 37.38 kg/m? GENERAL: Alert and oriented x3. HEAD: Normal cephalic/atraumatic. No scleral icterus. NECK: Supple CHEST: Rises equally on inspiration. Clear to auscultation bilaterally. CARDIOVASCULAR: Regular rate and rhythm without murmurs, rubs or gallops. ABDOMEN: Soft, nontender, and nondistended with normal bowel sounds. No Hepatosplemomegaly. NEURO: Alert and oriented times four. Patient moves all extremities and has gross sensation in all extremities. ASSESSMENT: Crohns small and large intestine Personal HX colon polyps PLAN: Colonoscopy Electronically signed 07/21/2024 at 7:52 AM by: Tatiana Nance MD, MMM, FACG, ARMIN, DIANE Board-Certified in Gastroenterology 36 Observed: 07/16/2024 10:07 AM Status: COMPLETED Source: [facility] Medication name: metFORMIN ( Glucophage) 1000 MG tablet Medication dosage: 1000 mg (Miligrams Monthly quantity needed: 180 How many day supply requestin days Medication route: oral (PO) Medication administration time(s): 2 times a day (BID) If taking medication PRN, reason for taking medication: N/A If this is a controlled substance do you receive this or any other controlled medication from any other doctor or facility: N/A Ordering provider: Dr. Cary Date of last office visit: 04.11.24 Date of next office visit: 10.10.24 Date of last refill: (see medication tab): 04.11.24 Updated/Validated preferred pharmacy: Yes Patient instructed to contact the pharmacy prior to picking up the medication: No 36 Observed: 07/16/2024 10:03 AM Status: COMPLETED Source: [facility] calling for a refill on Lasix ans Spironolactone to be sent in 36 Observed: 05/21/2024 9:41 AM Status: COMPLETED Source: [facility] MEDICATION ADHERENCE Yonis Mcmanus Rodrigue - 1955 PCP: Esperanza Cary DO Per insurance med adherence report, patient is due for refills on Lotensin HCT. Last filled 09/25/23 Quantity: 180 Refills: 3 Per chart review, patient has refills. [facility] [address] [facility] [address] [facility] - [place], [place] - [address] [facility] [address] [facility] [address] After chart review, patient should still be on this medication and needs to pick it up at the pharmacy. [facility] Last appointment 04/11/2024 , Next appointment is 10/10/2024 ALLERGIES No Allergies Records Found ENCOUNTERS ADMIT/DISCHARGE ACCOUNT NUMBER ADMITTING ENCOUNTER CLASS LOC ATION SOURCE 04/14/2025/ 5 [id number] Ambulatory Build[facility] [id number] [facility] 02/12/2025/ 5 [id number] Ambulatory Buildin [id number] [facility] 11/26/2024/ 5 [id number] Ambulatory Buildin [id number] [facility] 11/25/2024/ 5 [id number] Ambulatory Buildin [id number] [facility] 11/19/2024/ 5 [id number] Ambulatory Buildin [id number] [facility] 11/05/2024/ 5 [id number] Ambulatory Buildin [id number] [facility] 07/21/2024/ 4 [id number] TATIANA NANCE Ambulatory Buildin [id number]: SBHENDOBed: 6025 [facility] 05/29/2024/ 4 [id number] Ambulatory Buildin [id number] [facility] PAYERS ENCOUNTER GUARANTOR PAYER SUBSCRIBER SOURCE 04/14/2025 Primary Insuranc e:HUMAN MEDICARE ADVANTAGEPolicy Number: [id number] Date:2881-75-50Fpcu Name:Medicare HMO YONIS FUENTESB: [id number] [place] [id number] [facility] 02/12/2025 Primary Insuranc e:HUMAN MEDICARE ADVANTAGEPolicy Number: [id number] Date:9326-82-87Zouq Name:Medicare HMO YONIS Mcmanus LISAB: [id number] [place] [address] [facility] 11/26/2024 Primary Insuranc e:HUMAN MEDICARE ADVANTAGEPolicy Number: [id number] Date:3850-24-05Dlyl Name:Medicare HMO YONIS FUENTESB: [id number], [place] [address] [facility] 11/25/2024 Primary Insuranc e:HUMANA MEDICARE ADVANTAGEPolicy Number: [id number] Date:9400-99-82Hrbm Name:Medicare Kathy FUENTESDOB: [id number], [place] [address] [facility] 11/19/2024 Primary Insuranc e:HUMANA MEDICARE ADVANTAGEPolicy Number: [id number] Date:5887-81-40Wztn Name:Medicare [facility] YONIS FUENTESDOB: [id number], [place] [address] [facility] 11/05/2024 Primary Insuranc e:HUMANA MEDICARE ADVANTAGEPolicy Number: [id number] Date:8404-57-48Tbuk Name:Medicare HMO YONIS FUENTESDOB: [id number], [place] [address] [facility] 07/21/2024 Primary Insuranc e:HUMANA MEDICARE ADVANTAGEPolicy Number: [id number] Date:9850-34-88Azmf Name:Medicare Kathy FUENTESDOB: [id number], [place] [address] [facility] 05/29/2024 Primary Insuranc e:HUMANA MEDICARE ADVANTAGEPolicy Number: [id number] Date:5576-55-69Oost Name:Medicare HMKathy FUENTESDOB: [id number], [place] [address] [facility]
[2025-04-28 15:46] LABS: Hematocrit 36.0 % (37-47); Hemoglobin 12.1 g/dL (12.0-15.0); Immature Granulocytes Count 0.010 X10^3/uL (0.0-0.0); Mean Corp Hgb Conc 33.6 g/dL (32-36); Mean Corpuscular Volume 98.6 fL (81-99); Mean Platelet Vol. 11.6 fl (6.2-12.0); NRBC Flagged by Analyzer 0 % (0-5); Platelet Count 185 K/mm3 (150-450); RBC Distribution Width CV 15.2 % (11.6-14.6); RBC Distribution Width SD 54.5 fl (35.1-43.9); Red Blood Count 3.65 M/mm3 (4.2-5.4); White Blood Count 7.5 K/mm3 (4.4-11.0)
[2025-04-28 17:28] LABS: AST(SGOT) 18 U/L (<=31); Alanine Aminotransfer ALT/SGPT 12 U/L (<=34); Albumin, Serum 3.9 g/dL (3.4-4.8); Alkaline Phosphatase 100 U/L (35-104); Anion Gap 14 (5-15); BUN 22 mg/dL (4-19); BUN/Creat Ratio 29.0 RATIO (10-20); Calcium,Total 9.5 mg/dL (7.6-11.0); Carbon Dioxide 23.0 mmol/L (21.0-32.0); Chloride 103 mmol/L (98-108); Globulin 2.9 g/dL (2.2-4.2); Glucose 240 mg/dL (70-99); Hepatitis B Surface Antigen Nonreactive (Nonreactive); Hepatitis C Antibody Nonreactive (Nonreactive); Potassium 4.8 mmol/L (3.3-5.1); Vitamin B12 488 pg/mL (180-914); Vitamin D,25 Hydroxy 52.8 ng/mL (30-100)
[2025-04-28 17:34] LABS: CRP < 3.00 mg/L (0.0-3.0)
[2025-04-30 06:08] LABS: QNTFERON TB Mitogen Value > 10.00 IU/mL (.); QNTFERON TB Nil Value 0.04 IU/mL (.); QNTFERON TB1+ Ag Value 0.04 IU/mL (.); QNTFERON TB2+ Ag Value 0.05 IU/mL (.); QNTIFERON TB Positive Criteria Negative (Negative)
== END | disposition home or self-care (01) ==
LOC: MTLAB 13:09
PROVIDERS: PCP Family Medicine
DX: K50.80 Crohn's disease of both small and large intestine without complications (principal); R19.7 Diarrhea, unspecified
CPT/HCPCS: 36415; 80053; 82306; 82607; 85025; 86140; 86480; 86706; 86803; 87340

== ENCOUNTER → 2025-07-16 | Outpatient (CLI) | payer MEDICARE, SELFPAY ==
--- NOTE | 2025-07-16 16:10 | RAD_ITS ---
PROCEDURE: ABD INC DECUB AND/OR ERECT 07/16/2025 REASON FOR EXAM: CHRONIC DIARRHEA TECHNIQUE: Procedure Code: RADABDMV Modality: DX Procedure: Three-view ABD INC DECUB AND/OR ERECT COMPARISON: Right hip and pelvis series of 02/24/2025. RAD/Abd Inc Decub and/or Erect IMPRESSION: Prominent degenerative changes of the visualized spine are seen, lumbar levosco liosis multiple vertebral body compression fractures are noted. Partially visualized right femoral fixation device appears unchanged. No evidence of pneumoperitoneum. The bowel-gas pattern is unremarkable. No mass or mass effect is seen. Reading Location: [place] [address]
[2025-07-16 16:19] LABS: Hematocrit 35.6 % (37-47); Hemoglobin 11.6 g/dL (12.0-15.0); Immature Granulocytes Count 0.020 X10^3/uL (0.0-0.0); Mean Corp Hgb Conc 32.6 g/dL (32-36); Mean Corpuscular Volume 103.5 fL (81-99); Mean Platelet Vol. 11.3 fl (6.2-12.0); NRBC Flagged by Analyzer 0 % (0-5); Platelet Count 191 K/mm3 (150-450); RBC Distribution Width CV 13.1 % (11.6-14.6); RBC Distribution Width SD 49.1 fl (35.1-43.9); Red Blood Count 3.44 M/mm3 (4.2-5.4); White Blood Count 6.5 K/mm3 (4.4-11.0)
[2025-07-16 16:48] LABS: Creatinine, Urine (random) 107.00 mg/dL (28.00-217.00); Microalbumin,Random Urine 368.0 mg/L (<20 mg/L)
[2025-07-16 16:58] LABS: AST(SGOT) 15 U/L (<=31); Alanine Aminotransfer ALT/SGPT 10 U/L (<=34); Albumin, Serum 3.9 g/dL (3.4-4.8); Alkaline Phosphatase 101 U/L (35-104); Anion Gap 13 (5-15); BUN 21 mg/dL (4-19); BUN/Creat Ratio 27.1 RATIO (10-20); Calcium,Total 9.8 mg/dL (7.6-11.0); Carbon Dioxide 24.8 mmol/L (21.0-32.0); Chloride 101 mmol/L (98-108); Cholesterol 101 mg/dL (<=200); Globulin 3.3 g/dL (2.2-4.2); Glucose 384 mg/dL (70-99); Hepatitis C Antibody Nonreactive (Nonreactive); Low Density Lipoprotein Calc. 37 mg/dL; Potassium 4.1 mmol/L (3.3-5.1); Triglycerides 124 mg/dL; Very Low Density Lipoprotein 25 mg/dL (5-40); cholesterol:hdl ratio screen 2.39
[2025-07-17 00:01] LABS: Xtra Tube Kwok EXTRA TUBE
== END | disposition home or self-care (01) ==
PROVIDERS: PCP Family Medicine Geriatric Medicine; Referring Provider Family Medicine Geriatric Medicine; Visit Provider Family Medicine Geriatric Medicine
DX: E78.5 Hyperlipidemia, unspecified (principal); E11.65 Type 2 diabetes mellitus with hyperglycemia; I10 Essential (primary) hypertension; Z13.89 Encounter for screening for other disorder; R53.83 Other fatigue; K52.9 Noninfective gastroenteritis and colitis, unspecified
CPT/HCPCS: 36415; 74019; 80053; 80061; 82043; 82570; 83036; 84443; 85025; 86803